=== PATIENT | male | born 1935 | race Caucasian/White ===

== ENCOUNTER 2017-01-02 18:38 | Inpatient (IN) | payer MEDICARE, OTHER ==
[~2017-01-02] VITALS: Ht 172.7 cm; Wt 96.0 kg
[~2017-01-02 18:38] MED LIST: ALLO100T PO; ASPI81TA21 PO; DIPH50TA OR; ERGO5000; FLAG500T PO; LEVA500T PO; LEVE500 PO; LISI-366 PO; NOVO7030P2 SQ; OMEP20TA PO; VITA250L PO
[2017-01-02 18:54] VITALS: BP 185/111; PULSE 89; RESP 17; TEMP 98.2; O2SAT 100
[2017-01-02] MEDS ORDERED: SODIUM CHLOR 0.9% 1000 ML INJ 1,000 ML IV SCH (18:55)
[2017-01-02] MEDS ORDERED: SODIUM CHLORIDE 0.9% FLUSH 10 ML FLUSH IV FLUSH PRN ×2 (19:00→23:00)
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
[2017-01-02 19:13] VITALS: O2SAT 96
--- NOTE | 2017-01-02 19:25 | RADRPT ---
EXAM DATE/TIME: 01/02/2017 18:57 [facility] COMPARISON: No previous studies available for comparison. INDICATIONS : Short of breath. MEDICAL HISTORY : None. SURGICAL HISTORY : None. ENCOUNTER: Initial ACUITY: 1 day PAIN SCORE: Non-responsive. LOCATION: Bilateral chest FINDINGS: A single view of the chest demonstrates the lungs to be symmetrically aerated without evidence of mas s, infiltrate or effusion. The cardiomediastinal contours are unremarkable. Osseous structures are intact. CONCLUSION: No acute disease. Hamzah Dejesus MD on January 02, 2017 at 19:22 Board Certified Radiologist. This report was verified electronically.
[2017-01-02] MEDS ORDERED: metroNIDAZOLE 500 MG INJ 100 ML IV ONE (19:45)
[2017-01-02] MEDS ORDERED: VANCOMYCIN INJ 1,000 MG in SODIUM CHLOR 0.9% 250 ML INJ 250 ML IV ONE (19:45)
[2017-01-02] MEDS ORDERED: PIPERACIL-TAZO 3.375 GM PREMIX 50 ML IV ONE (19:45)
[2017-01-02 19:51] LABS: AUTOMATED NEUTROPHIL # 6.7 TH/MM3 (1.8-7.7); BASOPHIL % 0.5 % (0.0-2.0); EOSINOPHIL # 0.1 TH/MM3 (0-0.4); EOSINOPHIL % 1.2 % (0.0-4.0); HEMATOCRIT 36.9 % (39.0-51.0); HEMO FLAGS DIFF FINAL; LYMPH % 14.4 % (9.0-44.0); LYMPHOCYTE # 1.2 TH/MM3 (1.0-4.8); MEAN CELL VOLUME 83.4 FL (80.0-100.0); MEAN CORPUSCULAR HEMOGLOBIN 28.1 PG (27.0-34.0); MEAN CORPUSCULAR HGB CONC 33.8 % (32.0-36.0); MONO % 5.9 % (0.0-8.0); PLATELET COUNT 232 TH/MM3 (150-450); RED BLOOD COUNT 4.43 MIL/MM3 (4.50-5.90); RED CELL DISTRIBUTION WIDTH 14.7 % (11.6-17.2); WHITE BLOOD COUNT 8.6 TH/MM3 (4.0-11.0)
[2017-01-02 20:00] LABS: ANION GAP 9 MEQ/L (5-15); AST (GOT) 25 U/L (15-37); BICARBONATE 20.3 MEQ/L (21.0-32.0); BLOOD UREA NITROGEN 51 MG/DL (7-18); CHLORIDE 112 MEQ/L (98-107); GLOMERULAR FILTRATION RATE 11 ML/MIN (>89); POTASSIUM 5.4 MEQ/L (3.5-5.1); SODIUM (NA) 141 MEQ/L (136-145)
[2017-01-02 20:01] LABS: ALT (GPT) 15 U/L (12-78)
[2017-01-02 20:03] LABS: ALKALINE PHOSPHATASE 71 U/L (45-117); CREATINE KINASE 447 U/L (39-308); TOTAL BILIRUBIN ADULT 0.8 MG/DL (0.2-1.0)
[2017-01-02 20:05] LABS: BLOOD, URINE MOD (NEG); COMMENT (UR) CULT NOT INDICATED; CULTURE IF INDICATED CULT NOT INDICATED; GLUCOSE,URINE 70 mg/dL (NEG); KETONE, URINE 10 mg/dL (NEG); NITRITE,URINE NEG (NEG); PH, URINE 6.5 (5.0-8.5); URINE COLOR YELLOW (YELLW/STRAW)
[2017-01-02] MEDS ORDERED: SODIUM POLYSTYRENE SULFONATE SUSP 15 GM/60 ML CUP PO ONE (20:15)
[2017-01-02 20:42] VITALS: BP 211/98; PULSE 87; RESP 16; O2SAT 98
--- NOTE | 2017-01-02 21:09 | RADRPT ---
EXAM DATE/TIME: 01/02/2017 20:18 [facility] COMPARISON: No previous studies available for comparison. INDICATIONS : Evaluate for fall. RADIATION DOSE: 56.35c CTDIvol (mGy) MEDICAL HISTORY : Cardiovascular disease. Hypertension. Diabetes mellitus type 2.Renal stones. SURGICAL HISTORY : None. ENCOUNTER: Initial ACUITY: 1 day PAIN SCALE: 2/10 LOCATION: Bilateral cranial TECHNIQUE: Multiple contiguous axial images were obtained of the head. Using automated exposure control and adj ustment of the mA and/or kV according to patient size, radiation dose was kept as low as reasonably a chievable to obtain optimal diagnostic quality images. DICOM format image data is available electro nically for review and comparison. FINDINGS: CEREBRUM: The ventricles and cortical sulci are widened. There is decreased density in cerebral white matter. No evidence of midline shift, mass lesion, hemorrhage or acute infarction. No extra-axial fluid juan david ections are seen. POSTERIOR FOSSA: The cerebellum and brainstem are intact. The 4th ventricle is midline. The cerebellopontine angle i s unremarkable. EXTRACRANIAL: The visualized portion of the orbits is intact. There appears to be soft tissue swelling in the right supraorbital scalp region. SKULL: No fracture is seen. There are several lucent areas seen in the skull likely related to venous lakes. CONCLUSION: 1. No acute abnormality seen. 2. Age-related atrophy and suspected small vessel ischemic change in the white matter. 3. Mild right supraorbital scalp swelling. Hamzah Dejesus MD on January 02, 2017 at 21:00 Board Certified Radiologist. This report was verified electronically.
--- NOTE | 2017-01-02 21:35 | RADRPT ---
EXAM DATE/TIME: 01/02/2017 20:17 [facility] COMPARISON: No previous studies available for comparison. INDICATIONS : Evaluate for neck pain, patient fall today. RADIATION DOSE: 42.58 CTDIvol (mGy) MEDICAL HISTORY : Cardiovascular disease. Hypertension. Diabetes mellitus type 2.Renal stones. SURGICAL HISTORY : None. ENCOUNTER: Initial ACUITY: 1 day PAIN SCALE: 3/10 LOCATION: Bilateral neck region. TECHNIQUE: Volumetric scanning of the cervical spine was performed. Multiplanar reconstructions in the sagittal, coronal and oblique axial planes were performed. Using automated exposure control and adjustment o f the mA and/or kV according to patient size, radiation dose was kept as low as reasonably achievable to obtain optimal diagnostic quality images. DICOM format image data is available electronically f or review and comparison. FINDINGS: An acute fracture is not seen. The cervical vertebral bodies are normal in height. There is mild ante rior subluxation of C5 on C6 likely secondary to degenerative change. There is disc space narrowing, posterior disc bulge and posterior osteophytic ridging at the C3-C4 through C6-C7 levels being most p rominent at the C6-C7 level. There is facet hypertrophy at the C2-C3 through C6-C7 levels. There is u ncovertebral hypertrophy at the C3-C4 through C6-C7 levels. There is some hypertrophic change posteri or to the T1 spinous process. This is chronic. There is a lucent area seen at the base of the spinous process at C3. This is nonspecific. CONCLUSION: Degenerative change. An acute bony abnormality is not seen. Hamzah Dejesus MD on January 02, 2017 at 21:29 Board Certified Radiologist. This report was verified electronically.
--- NOTE | 2017-01-02 21:39 | RADRPT ---
EXAM DATE/TIME: 01/02/2017 20:23 [facility] COMPARISON: No previous studies available for comparison. INDICATIONS : Evaluate for diffuse lower abdomen pain. ORAL CONTRAST: No oral contrast ingested. RADIATION DOSE: 10.57 CTDIvol (mGy) ; Combined studies MEDICAL HISTORY : Cardiovascular disease. Hypertension. Renal calculi.Diabetes. SURGICAL HISTORY : None. ENCOUNTER: Initial ACUITY: 1 day PAIN SCALE: 7/10 LOCATION: Bilateral lower quadrant TECHNIQUE: Volumetric scanning of the abdomen and pelvis was performed. Using automated exposure control and ad justment of the mA and/or kV according to patient size, radiation dose was kept as low as reasonably achievable to obtain optimal diagnostic quality images. DICOM format image data is available electro nically for review and comparison. FINDINGS: LOWER LUNGS: The visualized lower lungs are clear. LIVER: Homogeneous density without lesion. There is no dilation of the biliary tree. Clips are seen in the right upper quadrant from prior cholecystectomy. SPLEEN: Normal size without lesion. PANCREAS: Within normal limits. KIDNEYS: Normal in size and shape. There is no mass, stone, or hydronephrosis. ADRENAL GLANDS: Within normal limits. VASCULAR: There is no aortic aneurysm. Arterial calcifications are seen throughout. BOWEL/MESENTERY: The stomach, small bowel, and colon demonstrate no acute abnormality. There is no free intraperitone al air or fluid. There are scattered colonic diverticula without inflammatory change. ABDOMINAL WALL: Within normal limits. There is subcutaneous superficial edema seen throughout the abdomen and pelvis. RETROPERITONEUM: There is no lymphadenopathy. BLADDER: No wall thickening or mass. REPRODUCTIVE: Within normal limits. INGUINAL: There is no lymphadenopathy or hernia. MUSCULOSKELETAL: There is degenerative change in the lumbar spine and hips. CONCLUSION: 1. No acute abnormality seen. 2. Colonic diverticula without inflammatory change. 3. Degenerative change the lumbar spine and hips. Hamzah Dejesus MD on January 02, 2017 at 21:33 Board Certified Radiologist. This report was verified electronically.
--- NOTE | 2017-01-02 21:52 | RADRPT ---
EXAM DATE/TIME: 01/02/2017 20:28 [facility] COMPARISON: No previous studies available for comparison. INDICATIONS : Mid back pain due to fall. RADIATION DOSE: CTDIvol (mGy) ; Reconstructed from previous dataset MEDICAL HISTORY : Cardiovascular disease. Renal calculi. Diabetes mellitus type 2.High blood pressure. SURGICAL HISTORY : None. ENCOUNTER: Initial ACUITY: 1 day PAIN SCALE: 6/10 LOCATION: Bilateral mid back TECHNIQUE: Volumetric scanning of the thoracic spine was performed. Multiplanar reconstructions in the sagittal , coronal and oblique axial planes were performed. Using automated exposure control and adjustment o f the mA and/or kV according to patient size, radiation dose was kept as low as reasonably achievable to obtain optimal diagnostic quality images. DICOM format image data is available electronically f or review and comparison. FINDINGS: The vertebral bodies of the thoracic spine are in normal alignment without evidence of subluxation. T he vertebral bodies are normal in height. There are anterior spurs throughout the thoracic spine. An area of significant stenosis of the thecal sac is not seen. There is a 0.7 cm focal area sclerosis at the right lamina at T11. CONCLUSION: 1. No acute abnormality is seen. 2. Degenerative change throughout the thoracic spine mainly seen is anterior spurring. 3. Nonspecific solitary of sclerosis at the right T11 lamina. This could represent a bone island or s tress reaction. Other causes for focal sclerosis cannot be excluded. Hamzah Dejesus MD on January 02, 2017 at 21:44 Board Certified Radiologist. This report was verified electronically.
[2017-01-02] MEDS ORDERED: LABETALOL HCL 100 MG/20 ML VIAL IV PUSH ONE (22:00)
--- NOTE | 2017-01-02 22:41 | RADRPT ---
EXAM DATE/TIME: 01/02/2017 22:08 [facility] COMPARISON: No previous studies available for comparison. INDICATIONS : Enlarged testicles. Possible hydroceles ORAL CONTRAST: No oral contrast ingested. RADIATION DOSE: 13.53 CTDIvol (mGy) MEDICAL HISTORY : Cardiovascular disease. Hypertension. Diabetes mellitus type 2. SURGICAL HISTORY : None. ENCOUNTER: Initial ACUITY: 1 day PAIN SCALE: 5/10 LOCATION: pelvis TECHNIQUE: Volumetric scanning of the pelvis was performed. Using automated exposure control and adjustment of the mA and/or kV according to patient size, radiation dose was kept as low as reasonably achievable t o obtain optimal diagnostic quality images. DICOM format image data is available electronically for review and comparison. FINDINGS: BOWEL/MESENTERY: The visualized small and large bowel demonstrate no acute abnormality. There is no free fluid. BLADDER: There is no wall thickening or mass. RETROPERITONEUM: There is no aneurysm or lymphadenopathy. REPRODUCTIVE: There is scrotal swelling and suspected bilateral hydroceles. The testicles appear normal in size. INGUINAL: There is no lymphadenopathy or hernia. MUSCULOSKELETAL: There is superficial edema at the pelvis and upper thighs. CONCLUSION: 1. Scrotal swelling and suspected hydroceles. 2. Diffuse superficial edema likely from anasarca. Hamzah Dejesus MD on January 02, 2017 at 22:36 Board Certified Radiologist. This report was verified electronically.
[2017-01-02] MEDS ORDERED: NALOXONE HCL 0.4 MG/ML AMP IV PRN (23:00)
[2017-01-02 23:41] VITALS: BP 182/98
[2017-01-03] VITALS (11 sets, daily range): BP systolic 135–193; BP diastolic 68–90; PULSE 61–88; RESP 16–20; TEMP 96.7–98.7; O2SAT 97–99
--- NOTE | 2017-01-03 02:20 | HHI.HP ---
[facility] Service [facility] Primary Care Physician Robyn Wu MD Admission Diagnosis acute renal failure, hyperkalemia, cellulitis of the scrotum/legs Diagnoses: Chief Complaint: Fall out of bed Travel History International Travel<30 Days: No Contact w/Intl Traveler <30 Da: No Traveled to Known Affected Are: No History of Present Illness Written by [place], acting as scribe for Dr. Rangel on 01/03/17 at 02:45. A week or so, the patient has been experiencing chills. The patient reports that his bed collapsed. The patient states he was in pain and could not get up off of the ground. This occurred around noon. He states that his son found him. He is not sure how long he was on the ground. He denies hitting his head or experiencing syncope. He reports back pain. Denies fevers, cough, n/v/d, dysuria, hematuria, chest pain, chest tightness, shortness of breath, dizziness, or unilateral weakness. Review of Systems Except as stated in HPI: all other systems reviewed are Neg Past Family Social History Past Medical History History of hypertension - doctor discontinued bp meds per patient Diabetes Mellitus - doctor discontinued his antidiabetic medications CKD Denies CAD, CHF, atrial fibrillation, COPD, asthma, liver problems, DVT, PE, CVA , Seizures, thyroid problems, cancer, or prostate issues . Past Surgical History hernia repair . Reported Medications Reported Meds & Active Scripts Active No Active Prescriptions or Reported Medications . Allergies: Coded Allergies: Codeine (Verified Allergy, Severe, Hives, 01/02/17) Latex (Verified Allergy, Severe, Hives NEOPRENE LATEX, 01/02/17) PT STATES HE IS NOT ALLERGIC TO LATEX ONLY NEOPRENE. 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 Uncoded Allergies: NEOPRENE (Allergy, Intermediate, Hives, 12/14/04) Active Ordered Medications Current Medications Sodium Chloride 2 ml 2 ml UNSCH PRN IV FLUSH FLUSH AFTER USING IV ACCESS Last administered on 01/02/17 20:18; Start 01/02/17 at 19:00; Stop 01/02/17 at 22:57; Status DC Sodium Chloride 1,000 ml @ 1,000 mls/hr Q1H IV Last administered on 01/02/17 20:17; Start 01/02/17 at 18:55; Stop 01/02/17 at 19:54; Status DC Vancomycin HCl 1000 mg/Sodium Chloride 250 ml @ 250 mls/hr ONCE ONCE IV Last administered on 01/02/17 21:10; Start 01/02/17 at 19:45; Stop 01/02/17 at 20:44; Status DC Piperacillin Sod/ Tazobactam Sod 50 ml @ 100 mls/hr ONCE ONCE IV Last administered on 01/02/17 20:59; Start 01/02/17 at 19:45; Stop 01/02/17 at 20:14; Status DC Metronidazole (Flagyl 500 Mg Inj) 100 ml @ 100 mls/hr ONCE ONCE IV Last administered on 01/02/17 20:18; Start 01/02/17 at 19:45; Stop 01/02/17 at 20:44; Status DC Sodium Polystyrene Sulfonate (Kayexalate Liq) 15 gm ONCE ONCE PO Last administered on 01/02/17 21:10; Start 01/02/17 at 20:15; Stop 01/02/17 at 20:16; Status DC Labetalol HCl (Trandate Inj) 10 mg ONCE ONCE IV PUSH Last administered on 00:01; Start 01/02/17 at 22:00; Stop 01/02/17 at 22:01; Status DC Sodium Chloride (NS Flush) 2 ml UNSCH PRN IV FLUSH FLUSH AFTER USING IV ACCESS ; Start 01/02/17 at 23:00 Sodium Chloride (NS Flush) 2 ml BID IV FLUSH ; Start 01/03/17 at 09:00 Naloxone HCl (Narcan Inj) 0.4 mg UNSCH PRN IV SEE LABEL COMMENTS; Start at 23:00 . Family History Sister - from complications related to asthma . Social History Tobacco: quit smoking in 1982 - smoked 4 ppd Alcohol: drinks once a month . Physical Exam Vital Signs Vital Signs Date Time Temp Pulse Resp B/P Pulse Ox O2 Delivery O2 Flow Rate FiO2 01/03/17 01:15 96.7 84 18 98 01/03/17 00:02 75 16 187/77 98 Room Air 01/02/17 23:41 182/98 01/02/17 20:42 87 16 211/98 98 01/02/17 19:13 96 Room Air 01/02/17 18:54 98.2 89 17 185/111 100 Room Air Physical Exam GENERAL: This is an obese elderly male patient, in no apparent distress. INTEGUMENTARY: No rashes. Cool and dry. Bilateral lower extremities with edema and erythema. HEAD: Atraumatic. Normocephalic. EYES: No scleral icterus. No injection or drainage. ENT: Nose without bleeding, purulent drainage. NECK: Trachea midline. No JVD or lymphadenopathy. CARDIOVASCULAR: Regular rate and rhythm without murmurs, gallops, or rubs. RESPIRATORY: Clear to auscultation. Breath sounds equal bilaterally. No wheezes , rales, or rhonchi. GASTROINTESTINAL: Abdomen soft, non-tender, nondistended. No guarding. MUSCULOSKELETAL: Extremities without clubbing, cyanosis. No calf tenderness. NEUROLOGICAL: Awake and alert. Motor and sensory grossly within normal limits. Normal speech. . Laboratory Laboratory Tests Test 01/02/17 01/02/17 19:30 20:00 White Blood Count 8.6 Red Blood Count 4.43 Hemoglobin 12.5 Hematocrit 36.9 Mean Corpuscular Volume 83.4 Mean Corpuscular Hemoglobin 28.1 Mean Corpuscular Hemoglobin 33.8 Concent Red Cell Distribution Width 14.7 Platelet Count 232 Mean Platelet Volume 8.7 Neutrophils (%) (Auto) 78.0 Lymphocytes (%) (Auto) 14.4 Monocytes (%) (Auto) 5.9 Eosinophils (%) (Auto) 1.2 Basophils (%) (Auto) 0.5 Neutrophils # (Auto) 6.7 Lymphocytes # (Auto) 1.2 Monocytes # (Auto) 0.5 Eosinophils # (Auto) 0.1 Basophils # (Auto) 0.0 CBC Comment DIFF FINAL Differential Comment Sodium Level 141 Potassium Level 5.4 Chloride Level 112 Carbon Dioxide Level 20.3 Anion Gap 9 Blood Urea Nitrogen 51 Creatinine 5.16 Estimat Glomerular Filtration 11 Rate Random Glucose 76 Lactic Acid Level 0.9 Calcium Level 8.3 Total Bilirubin 0.8 Aspartate Amino Transf 25 (AST/SGOT) Alanine Aminotransferase 15 (ALT/SGPT) Alkaline Phosphatase 71 Total Creatine Kinase 447 Creatine Kinase MB 4.0 Creatine Kinase MB % 0.9 Total Protein 6.2 Albumin 3.1 Lipase 106 Urine Color YELLOW Urine Turbidity CLEAR Urine pH 6.5 Urine Specific [place] 1.010 Urine Protein 300 Urine Glucose (UA) 70 Urine Ketones 10 Urine Occult Blood MOD Urine Nitrite NEG Urine Bilirubin NEG Urine Urobilinogen LESS THAN 2.0 Urine Leukocyte Esterase NEG Urine RBC 1 Urine WBC LESS THAN 1 Microscopic Urinalysis Comment CULT NOT INDICATED Date/Time Procedure Status Source Growth 01/02/17 19:30 Aerobic Blood Culture Received Blood Peripheral Pending 01/02/17 19:30 Anaerobic Blood Culture Received Blood Peripheral Pending Result Diagram: 01/02/17192901/02/171929 Imaging Last Impressions Chest X-Ray 01/02/171854 Signed Impressions: Service Date/Time: Monday, January 02, 2017 18:57 - CONCLUSION: No acute disease. Hamzah Dejesus MD Abdomen/Pelvis CT 01/02/171854 Signed Impressions: Service Date/Time: Monday, January 02, 2017 20:23 - CONCLUSION: 1. No acute abnormality seen. 2. Colonic diverticula without inflammatory change. 3. Degenerative change the lumbar spine and hips. Hamzah Dejesus MD Thoracic Spine CT 01/02/17 0000 Signed Impressions: Service Date/Time: Monday, January 02, 2017 20:28 - CONCLUSION: 1. No acute abnormality is seen. 2. Degenerative change throughout the thoracic spine mainly seen is anterior spurring. 3. Nonspecific solitary of sclerosis at the right T11 lamina. This could represent a bone island or stress reaction. Other causes for focal sclerosis cannot be excluded. Hamzah Dejesus MD Pelvis CT 01/02/17 0000 Signed Impressions: Service Date/Time: Monday, January 02, 2017 22:08 - CONCLUSION: 1. Scrotal swelling and suspected hydroceles. 2. Diffuse superficial edema likely from anasarca. Hamzah Dejesus MD Head CT 01/02/17 0000 Signed Impressions: Service Date/Time: Monday, January 02, 2017 20:18 - CONCLUSION: 1. No acute abnormality seen. 2. Age-related atrophy and suspected small vessel ischemic change in the white matter. 3. Mild right supraorbital scalp swelling. Hamzah Dejesus MD Cervical Spine CT 01/02/17 0000 Signed Impressions: Service Date/Time: Monday, January 02, 2017 20:17 - CONCLUSION: Degenerative change. An acute bony abnormality is not seen. Hamzah Dejesus MD . Assessment and Plan Assessment and Plan Acute Renal Failure with severe dehydration - BUN - 51, Creatinine - 5.16 eGFR - 11 - IVF hydration with NS at 100 cc/hr - recheck bmp in a.m. and follow results - continuous cardiac telemetry to monitor for arrhythmias - closely monitor I and Os - avoid nephrotoxins Rhabdomyolysis - likely secondary to severe dehydration - CK 447 - IVF hydration with NS at 100 cc/hr - recheck CK in a.m. and follow results Cellulitis - Renally adjusted IV Cefepime Hyperkalemia secondary to acute renal failure - Kayexalate given - recheck labs in a.m. and follow potassium results Hypertensive urgency - Clonidine 0.1 mg p.o. PRN sbp > 160 and/or dbp > 95 - monitor trends in blood pressure and adjust treatment as indicated Case management consultation for discharge planning DVT prophylaxis - Heparin 5000 units subq q8h . This note was transcribed by kelly [La Casillas]. I, Dr. Levi Rangel personally performed the history, physical exam, and medical decision making; and confirmed the accuracy of the information in the transcribed note. Authenticated by Dr. Levi Rangel on 01/03/17 at 02:45. Discussed Condition With ER physician, RN, and patient . Physician Certification 2 Midnight Certification Type: Admission for Inpatient Services Order for Inpatient Services The services are ordered in accordance with Medicare regulations or non- Medicare payer requirements, as applicable. In the case of services not specified as inpatient-only, they are appropriately provided as inpatient services in accordance with the 2-midnight benchmark. Estimated LOS (days): 3 days is the estimated time the patient will need to remain in the hospital, assuming treatment plan goals are met and no additional complications. Post-Hospital Plan: Home [place] Jan 03, 2017 02:20 Levi Rangel MD Jan 03, 2017 06:56
[2017-01-03] MEDS ORDERED: SODIUM CHLOR 0.9% 1000 ML INJ 1,000 ML IV SCH (03:15)
[2017-01-03] MEDS: HEPARIN SODIUM - SQ 10,000 UNITS/ML VIAL SQ SCH ×3 (05:47→22:45)
[2017-01-03] MEDS: cloNIDine HCL 0.1 MG TAB PO PRN ×2 (06:26→12:53)
[2017-01-03 07:18] LABS: AUTOMATED NEUTROPHIL # 6.7 TH/MM3 (1.8-7.7); BASOPHIL % 0.5 % (0.0-2.0); EOSINOPHIL # 0.1 TH/MM3 (0-0.4); EOSINOPHIL % 1.9 % (0.0-4.0); HEMATOCRIT 33.6 % (39.0-51.0); HEMO FLAGS DIFF FINAL; LYMPH % 8.2 % (9.0-44.0); LYMPHOCYTE # 0.6 TH/MM3 (1.0-4.8); MEAN CELL VOLUME 83.5 FL (80.0-100.0); MEAN CORPUSCULAR HEMOGLOBIN 27.6 PG (27.0-34.0); MEAN CORPUSCULAR HGB CONC 33.1 % (32.0-36.0); MONO % 5.4 % (0.0-8.0); PLATELET COUNT 215 TH/MM3 (150-450); RED BLOOD COUNT 4.03 MIL/MM3 (4.50-5.90); RED CELL DISTRIBUTION WIDTH 14.4 % (11.6-17.2); WHITE BLOOD COUNT 7.9 TH/MM3 (4.0-11.0)
[2017-01-03 07:28] LABS: BICARBONATE 20.8 MEQ/L (21.0-32.0); POTASSIUM 5.4 MEQ/L (3.5-5.1)
[2017-01-03] MEDS: SODIUM CHLORIDE 0.9% FLUSH 10 ML FLUSH IV FLUSH SCH ×2 (08:49→21:00)
[2017-01-03] MEDS ORDERED: CEFEPIME INJ 2,000 MG in SODIUM CHLORIDE 0.9% INJ 100 ML IV SCH (09:00)
--- NOTE | 2017-01-03 09:28 | EKG ---
Date Performed: 01/02/2017 Time Performed: 19:35:19 PTAGE: 81 years EKG: Sinus rhythm WITH FIRST DEGREE AV BLOCK RIGHT BUNDLE BRANCH BLOCK LEFT ANTERIOR FASCICULAR BLOCK ABNORMAL ECG PREVIOUS TRACING : 09/05/2013 10.51 DOCTOR: Seth Lyons Interpretating Date/Time 01/03/2017 09:27:51
--- NOTE | 2017-01-03 10:40 | HHI.PR ---
Subjective Remarks Patient was admitted on 01/03/2017 due to fall and unable to get up from the floor , possibly near syncope. At the time of this interview, patient is doing well, resting in bed well. No chest pain, shortness of breath, fever or chills. Objective Vitals Vital Signs Date Time Temp Pulse Resp B/P Pulse Ox O2 Delivery O2 Flow Rate FiO2 01/03/17 07:50 63 01/03/17 07:50 96.9 61 20 153/69 99 Automatic Cuff 01/03/17 05:30 97.3 64 18 187/83 99 01/03/17 01:30 140/90 01/03/17 01:15 96.7 84 18 98 01/03/17 00:02 75 16 187/77 98 Room Air 01/02/17 23:41 182/98 01/02/17 20:42 87 16 211/98 98 01/02/17 19:13 96 Room Air 01/02/17 18:54 98.2 89 17 185/111 100 Room Air Result Diagram: 01/03/17 0550 01/03/17 0550 Imaging Last Impressions Chest X-Ray 01/02/171854 Signed Impressions: Service Date/Time: Monday, January 02, 2017 18:57 - CONCLUSION: No acute disease. Hamzah Dejesus MD Abdomen/Pelvis CT 01/02/171854 Signed Impressions: Service Date/Time: Monday, January 02, 2017 20:23 - CONCLUSION: 1. No acute abnormality seen. 2. Colonic diverticula without inflammatory change. 3. Degenerative change the lumbar spine and hips. Hamzah Dejesus MD Thoracic Spine CT 01/02/17 0000 Signed Impressions: Service Date/Time: Monday, January 02, 2017 20:28 - CONCLUSION: 1. No acute abnormality is seen. 2. Degenerative change throughout the thoracic spine mainly seen is anterior spurring. 3. Nonspecific solitary of sclerosis at the right T11 lamina. This could represent a bone island or stress reaction. Other causes for focal sclerosis cannot be excluded. Hamzah Dejesus MD Pelvis CT 01/02/17 0000 Signed Impressions: Service Date/Time: Monday, January 02, 2017 22:08 - CONCLUSION: 1. Scrotal swelling and suspected hydroceles. 2. Diffuse superficial edema likely from anasarca. Hamzah Dejesus MD Head CT 01/02/17 0000 Signed Impressions: Service Date/Time: Monday, January 02, 2017 20:18 - CONCLUSION: 1. No acute abnormality seen. 2. Age-related atrophy and suspected small vessel ischemic change in the white matter. 3. Mild right supraorbital scalp swelling. Hamzah Dejesus MD Cervical Spine CT 01/02/17 0000 Signed Impressions: Service Date/Time: Monday, January 02, 2017 20:17 - CONCLUSION: Degenerative change. An acute bony abnormality is not seen. Hamzah Dejesus MD Objective Remarks GENERAL: Alert, NAD. SKIN: Warm and dry. HEAD: Normocephalic. EYES: No scleral icterus. No injection or drainage. NECK: Supple, trachea midline. No JVD or lymphadenopathy. CARDIOVASCULAR: Regular rate and rhythm without murmurs, gallops, or rubs. RESPIRATORY: Breath sounds equal bilaterally. No accessory muscle use. GASTROINTESTINAL: Abdomen soft, non-tender, nondistended. MUSCULOSKELETAL: No cyanosis. 2+ edema in the lower ext bilaterally. Erythema present without any drainage. BACK: Nontender without obvious deformity. No CVA tenderness. Procedures None. A/P Assessment and Plan Mr. Lala is an 81 year old male who was brought to the ED after he fell and could not get up. Son found him after unknown period of time. Per EMS, patient' s living condition is extremely disheveled and unkept. Inside temp was around 90 degrees and patient was lying down on the floor. Patient apparently stopped taking all his medications three months ago on his own. - Acute kidney injury - Probably due to volume depletion due to hot weather, lack of proper oral fluid intake. - Creatinine above 5 with hyperkalemia - Nephrology consulted - switched IV fluid from NS to D5 with Bicarb @ 75cc/ hour. - Renal panel in the AM. - Bilateral lower extremity stasis dermatitis - Redness on both legs - less likely due to infectious etiology. - Will discontinue Cefepime. - Elevate legs and Apply Patrick hose. - May need diuresis - but at this point, diuresis may further contract volume. - Hypertension - Will start CCB Nifedipine 60mg Qday. - Clonidine PRN Full code. Heparin SQ. Jayson Casper DO Jan 03, 2017 10:40
--- NOTE | 2017-01-03 12:09 | PD.CONS ---
[facility] Service Nephrology Consult Requested By Reason for Consult Acute Renal Failure Primary Care Physician Robyn Wu MD History of Present Illness This is an 81 y/o male patient admitted yesterday after he rolled out of bed and was unable to get up on his own. Apparently his home is very disheveled. He was in renal failure on arrival, creatinine 5.16, K 5.4, C02 20.8. CPK was 447, UA had 300 proteinuria with ketones and glucose. We were consulted for management. PMH of HTN and DM, he took himself off medications years ago for unknown reasons. His BP was in 200s systolic in the ER. He is awake today, has no complaints. Has pedal edema and erythema of lower legs, was given antibiotics for suspected cellulitis. He is a full code. (Mikki Arroyo) Review of Systems Constitutional: COMPLAINS OF: Fatigue, DENIES: Weight gain Cardiovascular: COMPLAINS OF: Lower Extremity Edema, DENIES: Chest pain, Dyspnea on Exertion Gastrointestinal: DENIES: Abdominal pain, Nausea Musculoskeletal: DENIES: Joint pain, Muscle aches Integumentary: COMPLAINS OF: Rash (Mikki Arroyo) Past Family Social History Allergies: Coded Allergies: Codeine (Verified Allergy, Severe, Hives, 01/02/17) Latex (Verified Allergy, Severe, Hives NEOPRENE LATEX, 01/02/17) PT STATES HE IS NOT ALLERGIC TO LATEX ONLY NEOPRENE. 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 Face wound 2008 Uncoded Allergies: NEOPRENE (Allergy, Intermediate, Hives, 12/14/04) Past Medical History HTN, off medications for years DM II, off medications for years Hx hyperlipidemia probable CKD Hx seizures GERD Hx pancreatitis Past Surgical History Hernia repair Reported Medications No home medications Active Ordered Medications Current Medications Medications (Trade) Dose Ordered Sig/Maxi Route Start Time Stop Time Status Last Admin (NS Flush) 2 ml UNSCH PRN IV FLUSH 01/02/17 23:00 (NS Flush) 2 ml BID IV FLUSH 01/03/17 09:00 Naloxone HCl 0.4 mg 0.4 mg UNSCH PRN IV 01/02/17 23:00 (NS 1000 ml Inj) 1,000 ml @ 100 mls/hr Q10H IV 01/03/17 03:15 01/03/17 04:19 (Heparin Inj) 5,000 units Q8HR SQ 01/03/17 06:00 01/03/17 05:47 (Catapres) 0.1 mg Q6H PRN PO 01/03/17 03:30 01/03/17 06:26 Family History No hx of renal disorders Social History former heavy smoker occasional ETOH he is , lives locally with 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 noncompliance with medical care in the past full code (Mikki Arroyo) Physical Exam Vital Signs Vital Signs Date Time Temp Pulse Resp B/P Pulse Ox O2 Delivery O2 Flow Rate FiO2 01/03/17 07:50 63 01/03/17 07:50 96.9 61 20 153/69 99 Automatic Cuff 01/03/17 05:30 97.3 64 18 187/83 99 01/03/17 01:30 140/90 01/03/17 01:15 96.7 84 18 98 01/03/17 00:02 75 16 187/77 98 Room Air 01/02/17 23:41 182/98 01/02/17 20:42 87 16 211/98 98 01/02/17 19:13 96 Room Air 01/02/17 18:54 98.2 89 17 185/111 100 Room Air Physical Exam Elderly disheveled male, sleeping but awakens to voice alert/oriented x 3 S1/S2, regular rate, no murmurs lungs clear abdomen obese, soft, non tender extremities: erythema with papular lesions lower extremities, no open areas pedal edema, 2+ Laboratory Laboratory Tests Test 01/02/17 01/02/17 01/03/17 19:30 20:00 05:50 White Blood Count 8.6 7.9 Red Blood Count 4.43 4.03 Hemoglobin 12.5 11.1 Hematocrit 36.9 33.6 Mean Corpuscular Volume 83.4 83.5 Mean Corpuscular Hemoglobin 28.1 27.6 Mean Corpuscular Hemoglobin 33.8 33.1 Concent Red Cell Distribution Width 14.7 14.4 Platelet Count 232 215 Mean Platelet Volume 8.7 8.5 Neutrophils (%) (Auto) 78.0 84.0 Lymphocytes (%) (Auto) 14.4 8.2 Monocytes (%) (Auto) 5.9 5.4 Eosinophils (%) (Auto) 1.2 1.9 Basophils (%) (Auto) 0.5 0.5 Neutrophils # (Auto) 6.7 6.7 Lymphocytes # (Auto) 1.2 0.6 Monocytes # (Auto) 0.5 0.4 Eosinophils # (Auto) 0.1 0.1 Basophils # (Auto) 0.0 0.0 CBC Comment DIFF FINAL DIFF FINAL Differential Comment Sodium Level 141 144 Potassium Level 5.4 5.4 Chloride Level 112 114 Carbon Dioxide Level 20.3 20.8 Anion Gap 9 9 Blood Urea Nitrogen 51 47 Creatinine 5.16 5.09 Estimat Glomerular Filtration 11 11 Rate Random Glucose 76 68 Lactic Acid Level 0.9 Calcium Level 8.3 7.9 Total Bilirubin 0.8 Aspartate Amino Transf 25 (AST/SGOT) Alanine Aminotransferase 15 (ALT/SGPT) Alkaline Phosphatase 71 Total Creatine Kinase 447 297 Creatine Kinase MB 4.0 Creatine Kinase MB % 0.9 Total Protein 6.2 Albumin 3.1 Lipase 106 Urine Color YELLOW Urine Turbidity CLEAR Urine pH 6.5 Urine Specific [place] 1.010 Urine Protein 300 Urine Glucose (UA) 70 Urine Ketones 10 Urine Occult Blood MOD Urine Nitrite NEG Urine Bilirubin NEG Urine Urobilinogen LESS THAN 2.0 Urine Leukocyte Esterase NEG Urine RBC 1 Urine WBC LESS THAN 1 Microscopic Urinalysis Comment CULT NOT INDICATED Date/Time Procedure Status Source Growth 01/02/17 19:30 Aerobic Blood Culture - Preliminary Resulted Blood Peripheral NO GROWTH IN 1 DAY 01/02/17 19:30 Anaerobic Blood Culture - Preliminary Resulted Blood Peripheral NO GROWTH IN 1 DAY (Mikki Arroyo) Result Diagram: 01/03/17 0550 01/03/17 0550 Imaging Last Impressions Chest X-Ray 01/02/171854 Signed Impressions: Service Date/Time: Monday, January 02, 2017 18:57 - CONCLUSION: No acute disease. Hamzah Dejesus MD Abdomen/Pelvis CT 01/02/171854 Signed Impressions: Service Date/Time: Monday, January 02, 2017 20:23 - CONCLUSION: 1. No acute abnormality seen. 2. Colonic diverticula without inflammatory change. 3. Degenerative change the lumbar spine and hips. Hamzah Dejesus MD Thoracic Spine CT 01/02/17 Signed Impressions: Service Date/Time: Monday, January 02, 2017 20:28 - CONCLUSION: 1. No acute abnormality is seen. 2. Degenerative change throughout the thoracic spine mainly seen is anterior spurring. 3. Nonspecific solitary of sclerosis at the right T11 lamina. This could represent a bone island or stress reaction. Other causes for focal sclerosis cannot be excluded. Hamzah Dejesus MD Pelvis CT 01/02/17 Signed Impressions: Service Date/Time: Monday, January 02, 2017 22:08 - CONCLUSION: 1. Scrotal swelling and suspected hydroceles. 2. Diffuse superficial edema likely from anasarca. Hamzah Dejesus MD Head CT 01/02/17 Signed Impressions: Service Date/Time: Monday, January 02, 2017 20:18 - CONCLUSION: 1. No acute abnormality seen. 2. Age-related atrophy and suspected small vessel ischemic change in the white matter. 3. Mild right supraorbital scalp swelling. Hamzah Dejesus MD Cervical Spine CT 01/02/17 Signed Impressions: Service Date/Time: Monday, January 02, 2017 20:17 - CONCLUSION: Degenerative change. An acute bony abnormality is not seen. Hamzah Dejesus MD (Mikki ArroyoP) Assessment and Plan Problem List: (1) Acute renal failure Plan: In 2013 his creatinine was 0.98, GFR 74, consistent with CKD II he has proteinuria may have underlying diabetic nephropathy MAAME may be due to intravascular volume depletion from dehydration, CPK not that high so rhabdomyolysis is less likely CT negative for obstruction change IVF to D5 with bicarbonate at 75 cc/hr oral intake encouraged repeat renal panel in am quantify proteinuria I have asked the nurse to document urine output he may need diuresis in upcoming days he does not require dialysis at this time (2) Hyperkalemia Plan: begin bicarb drip repeat renal panel in am (3) Hypertension Plan: avoid SALO given hyperkalemia and MAAME bradycardic today avoid beta blockers start amlodipine prn clonidine ordered (4) Metabolic acidosis Plan: change IVF, monitor (5) Poorly controlled diabetes mellitus Plan: monitor glucose resume insulin when appropriate (6) Bilateral lower leg cellulitis Plan: given flagyl, zosyn, vancomycin, and cefepime defer treatment to medical team (Mikki Arroyo) Assessment and Plan patient was seen and examined. Renal function near normal in 2013. MAAME could have due to pre-renal azotemia, vs ATN. UA did reveal moderate blood but only few RBCs, however CPK is not very high. Monitor, continue IVF. no immediate need for dialysis. Agree with above assessment and plan. (Juan Antonio Poon MD) Problem Qualifiers (1) Acute renal failure: Qualified Code: N17.9 - Acute renal failure, unspecified acute renal failure type Mikki Arroyo Jan 03, 2017 12:09 Juan Antonio Poon MD Jan 03, 2017 17:42
[2017-01-03] MEDS: SODIUM BICARBONATE 8.4% INJ 75 MEQ in DEXTROSE 5% IN WATE 1000ML INJ 1,000 ML IV SCH ×2 (14:41)
[2017-01-04] VITALS: BP 136/70; PULSE 67; RESP 18; TEMP 98.7; O2SAT 98
[2017-01-04 04:00] VITALS: BP 173/79; PULSE 58; RESP 18; TEMP 96.9; O2SAT 99
[2017-01-04] MEDS: SODIUM BICARBONATE 8.4% INJ 75 MEQ in DEXTROSE 5% IN WATE 1000ML INJ 1,000 ML IV SCH ×4 (04:12→05:39)
[2017-01-04] MEDS: cloNIDine HCL 0.1 MG TAB PO PRN (04:13)
[2017-01-04] MEDS: HEPARIN SODIUM - SQ 10,000 UNITS/ML VIAL SQ SCH ×3 (06:37→22:36)
[2017-01-04 06:54] LABS: BICARBONATE 21.1 MEQ/L (21.0-32.0); POTASSIUM 4.5 MEQ/L (3.5-5.1)
[2017-01-04 08:00] VITALS: BP 178/81; PULSE 56; RESP 18; TEMP 98
[2017-01-04] MEDS: NIFEdipine 60 MG SUSTAINED RELEASE TAB PO SCH (10:16)
[2017-01-04] MEDS: SODIUM CHLORIDE 0.9% FLUSH 10 ML FLUSH IV FLUSH SCH ×2 (10:16→21:00)
[2017-01-04] MEDS ORDERED: DEXTROSE 50% IN WATER 50 ML VIAL(D50) IV PRN (10:45)
[2017-01-04] MEDS ORDERED: GLUCAGON 1 MG/ML VIAL OTHER PRN (10:45)
--- NOTE | 2017-01-04 10:46 | HHI.PR ---
Subjective Remarks Follow up for acute kidney injury, diabetes. Patient is doing well. Denies any chest pain, shortness of breath, fever, chills. Objective Vitals Vital Signs Date Time Temp Pulse Resp B/P Pulse Ox O2 Delivery O2 Flow Rate FiO2 01/04/17 04:00 96.9 58 18 173/79 99 01/04/17 00:00 98.7 67 18 136/70 98 01/03/17 23:52 68 01/03/17 20:30 98.7 64 18 177/81 97 01/03/17 15:50 97.4 70 20 151/68 98 01/03/17 13:27 88 135/73 01/03/17 12:00 65 01/03/17 11:50 97.2 76 20 193/81 99 I/O 01/03/17 01/03/17 01/03/17 01/04/17 01/04/17 01/04/17 07:00 15:00 23:00 07:00 15:00 23:00 Intake Total 1338 ml 480 ml Balance 1338 ml 480 ml Intake Oral 341 ml 480 ml IV Total 997 ml Bladder Scan Volume Amount 82 ml # Voids 1 3 2 # Bowel Movements 1 2 Result Diagram: 01/03/17 0550 01/04/17 0546 Imaging Last Impressions Chest X-Ray 01/02/171854 Signed Impressions: Service Date/Time: Monday, January 02, 2017 18:57 - CONCLUSION: No acute disease. Hamzah Dejesus MD Abdomen/Pelvis CT 01/02/171854 Signed Impressions: Service Date/Time: Monday, January 02, 2017 20:23 - CONCLUSION: 1. No acute abnormality seen. 2. Colonic diverticula without inflammatory change. 3. Degenerative change the lumbar spine and hips. Hamzah Dejesus MD Thoracic Spine CT 01/02/17 0000 Signed Impressions: Service Date/Time: Monday, January 02, 2017 20:28 - CONCLUSION: 1. No acute abnormality is seen. 2. Degenerative change throughout the thoracic spine mainly seen is anterior spurring. 3. Nonspecific solitary of sclerosis at the right T11 lamina. This could represent a bone island or stress reaction. Other causes for focal sclerosis cannot be excluded. Hamzah Dejesus MD Pelvis CT 01/02/17 0000 Signed Impressions: Service Date/Time: Monday, January 02, 2017 22:08 - CONCLUSION: 1. Scrotal swelling and suspected hydroceles. 2. Diffuse superficial edema likely from anasarca. Hamzah Dejesus MD Head CT 01/02/17 0000 Signed Impressions: Service Date/Time: Monday, January 02, 2017 20:18 - CONCLUSION: 1. No acute abnormality seen. 2. Age-related atrophy and suspected small vessel ischemic change in the white matter. 3. Mild right supraorbital scalp swelling. Hamzah Dejesus MD Cervical Spine CT 01/02/17 0000 Signed Impressions: Service Date/Time: Monday, January 02, 2017 20:17 - CONCLUSION: Degenerative change. An acute bony abnormality is not seen. Hamzah Dejesus MD Objective Remarks GENERAL: Alert, NAD. SKIN: Warm and dry. HEAD: Normocephalic. EYES: No scleral icterus. No injection or drainage. NECK: Supple, trachea midline. No JVD or lymphadenopathy. CARDIOVASCULAR: Regular rate and rhythm without murmurs, gallops, or rubs. RESPIRATORY: Breath sounds equal bilaterally. No accessory muscle use. GASTROINTESTINAL: Abdomen soft, non-tender, nondistended. MUSCULOSKELETAL: No cyanosis. 2+ edema in the lower ext bilaterally. PATRICK hose on. BACK: Nontender without obvious deformity. No CVA tenderness. Procedures None. A/P Assessment and Plan Mr. Lala is an 81 year old male who was brought to the ED after he fell and could not get up. Son found him after unknown period of time. Per EMS, patient' s living condition is extremely disheveled and unkept. Inside temp was around 90 degrees and patient was lying down on the floor. Patient apparently stopped taking all his medications three months ago on his own. - Acute kidney injury - Probably due to volume depletion due to hot weather, lack of proper oral fluid intake. - Creatinine 5.09 --> 4.98 - no significant improvement. - Nephrology consulted - switched IV fluid from NS to D5 with Bicarb @ 75cc/ hour. - Bilateral lower extremity stasis dermatitis - Redness on both legs - less likely due to infectious etiology. - discontinued Cefepime. - Elevate legs and Apply Patrick hose. - May need diuresis - but at this point, diuresis may further contract volume. - Hypertension - Continue Nifedipine 60mg Qday. Will add Hydralazine 25mg PO TID with holding parameters. - Clonidine PRN Full code. Heparin SQ. Jayson Casper DO Jan 04, 2017 10:46 am
--- NOTE | 2017-01-04 11:39 | HHI.NPPN ---
Subjective Renal Failure: Acute Interval History He is awake. Creatinine is slightly better. No acute concerns. (Mikki Arroyo) Objective Data Data 01/03/17 01/04/17 19:00 07:00 Intake Total 1338 ml 480 ml Balance 1338 ml 480 ml Intake Oral 341 ml 480 ml IV Total 997 ml Bladder Scan Volume Amount 82 ml # Voids 3 2 # Bowel Movements 2 Vital Signs Date Time Temp Pulse Resp B/P Pulse Ox O2 Delivery O2 Flow Rate FiO2 01/04/17 08:00 98.0 56 18 178/81 01/04/17 04:00 96.9 58 18 173/79 99 01/04/17 00:00 98.7 67 18 136/70 98 01/03/17 23:52 68 01/03/17 20:30 98.7 64 18 177/81 97 01/03/17 15:50 97.4 70 20 151/68 98 01/03/17 13:27 88 135/73 01/03/17 12:00 65 01/03/17 11:50 97.2 76 20 193/81 99 (Mikki Arroyo) -: 01/03/17 0550 01/04/17 0546 Imaging Last 72 hours Impressions Chest X-Ray 01/02/171854 Signed Impressions: Service Date/Time: Monday, January 02, 2017 18:57 - CONCLUSION: No acute disease. Hamzah Dejesus MD Abdomen/Pelvis CT 01/02/171854 Signed Impressions: Service Date/Time: Monday, January 02, 2017 20:23 - CONCLUSION: 1. No acute abnormality seen. 2. Colonic diverticula without inflammatory change. 3. Degenerative change the lumbar spine and hips. Hamzah Dejesus MD Thoracic Spine CT 01/02/17 0000 Signed Impressions: Service Date/Time: Monday, January 02, 2017 20:28 - CONCLUSION: 1. No acute abnormality is seen. 2. Degenerative change throughout the thoracic spine mainly seen is anterior spurring. 3. Nonspecific solitary of sclerosis at the right T11 lamina. This could represent a bone island or stress reaction. Other causes for focal sclerosis cannot be excluded. Hamzah Dejesus MD Pelvis CT 01/02/17 0000 Signed Impressions: Service Date/Time: Monday, January 02, 2017 22:08 - CONCLUSION: 1. Scrotal swelling and suspected hydroceles. 2. Diffuse superficial edema likely from anasarca. Hamzah Dejesus MD Head CT 01/02/17 Signed Impressions: Service Date/Time: Monday, January 02, 2017 20:18 - CONCLUSION: 1. No acute abnormality seen. 2. Age-related atrophy and suspected small vessel ischemic change in the white matter. 3. Mild right supraorbital scalp swelling. Hamzah Dejesus MD Cervical Spine CT 01/02/17 Signed Impressions: Service Date/Time: Monday, January 02, 2017 20:17 - CONCLUSION: Degenerative change. An acute bony abnormality is not seen. Hamzah Dejesus MD (Mikki Arroyo) Physical Exam General Appearance: Well Developed, Comfortable, Obese (Mikki ArroyoP) Throat Throat Exam: Oral Mucosa [place] & Moist (Mikki ArroyoP) Pulmonary Resp Exam: Clear Bilaterally, Breath Sounds Equal (Mikki ArroyoP) Cardiology CV Exam: Regular, Normal Sinus Rhythm (Mikki ArroyoP) Gastrointestinal/Abdomen GI Exam: Soft, Non-Tender, Bowel Sounds Present (Mikki Arroyo) Musculoskeletal MS Exam: Joints Intact, Normal Gait (Mikki ArroyoP) Integumentary Skin Exam: Clear, Warm (Mikki ArroyoP) Extremeties Extremities Exam: No Edema, Pedal Pulses Palpable (Mikki ArroyoP) Neurologic Neuro Exam: Alert, Awake, Oriented, Speech Clear, Moving All Extremities ( Mkiki Arroyo [employer]) Psychiatric Psych Exam: Appropriate Responses (Mikki Arroyo) Assessment/Plan Discussed Condition With: Patient Assessment Summary: MAAME/Acute Renal Failure Electrolyte Assessment: Hypocalcemia, Metabolic Acidosis Problem List: (1) Acute renal failure Plan: In 2013 his creatinine was 0.98, GFR 74, consistent with CKD II he has proteinuria may have underlying diabetic nephropathy, awaiting protein quantification MAAME may be due to intravascular volume depletion from dehydration, CPK not that high so rhabdomyolysis is less likely CT negative for obstruction, bladder scan negative for retention continue IVF with bicarbonate at 75 cc/hr oral intake encouraged repeat renal panel daily he does not require dialysis at this time (2) Hyperkalemia Plan: K improved, continue bicarb drip (3) Hypertension Plan: continue nifedipine prn clonidine ordered (4) Metabolic acidosis Plan: continue IVF, monitor (5) Poorly controlled diabetes mellitus Plan: monitor glucose resume insulin when appropriate (6) Bilateral lower leg cellulitis Plan: given flagyl, zosyn, vancomycin, and cefepime defer treatment to medical team wound care (Mikki Arroyo) Plan patient was seen and examined. Agree with above assessment and plan. Renal function is slightly better, no need for dialysis. (Juan Antonio Poon MD) Problem Qualifiers (1) Acute renal failure: Qualified Code: N17.9 - Acute renal failure, unspecified acute renal failure type Mikki Arroyo Jan 04, 2017 11:39 Juan Antonio Poon MD Jan 05, 2017 15:28
[2017-01-04 12:00] VITALS: BP 180/81; PULSE 64; RESP 18; TEMP 97.7; O2SAT 100
[2017-01-04] MEDS: INSULIN ASPART SUPPLEMENTAL SCALE SQ SCH ×3 (12:48→22:47)
[2017-01-04 16:00] VITALS: BP 145/68; PULSE 69; RESP 20; TEMP 97.2; O2SAT 96
[2017-01-04] MEDS: hydrALAZINE HCL 25 MG TAB PO SCH ×2 (16:23→22:36)
[2017-01-04 20:00] VITALS: BP 122/59; PULSE 68; RESP 18; TEMP 97.8; O2SAT 96
[2017-01-04] MEDS: INSULIN DETEMIR 100 UNITS/ML VIAL SQ SCH (22:46)
[2017-01-05] VITALS (9 sets, daily range): BP systolic 105–164; BP diastolic 52–92; PULSE 55–89; RESP 16–18; TEMP 96.9–98.5; O2SAT 94–100
[2017-01-05] MEDS: hydrALAZINE HCL 25 MG TAB PO SCH ×3 (05:48→20:53)
[2017-01-05] MEDS: HEPARIN SODIUM - SQ 10,000 UNITS/ML VIAL SQ SCH ×3 (05:49→20:53)
[2017-01-05] MEDS: INSULIN ASPART SUPPLEMENTAL SCALE SQ SCH ×4 (05:49→20:58)
[2017-01-05] MEDS: SODIUM CHLORIDE 0.9% FLUSH 10 ML FLUSH IV FLUSH SCH ×2 (08:13→20:59)
[2017-01-05] MEDS: NIFEdipine 60 MG SUSTAINED RELEASE TAB PO SCH (08:13)
--- NOTE | 2017-01-05 09:46 | HHI.PR ---
Subjective Remarks Follow up for acute kidney injury, diabetes. Patient is doing well. Resting in bed. No chest pain, shortness of breath, fever or chills. Objective Vitals Vital Signs Date Time Temp Pulse Resp B/P Pulse Ox O2 Delivery O2 Flow Rate FiO2 01/05/17 08:00 98.1 84 18 136/92 95 01/05/17 04:30 98.5 71 18 134/63 96 01/05/17 00:00 97.7 82 18 137/65 95 01/04/17 20:00 97.8 68 18 122/59 96 01/04/17 16:00 97.2 69 20 145/68 96 01/04/17 12:00 97.7 64 18 180/81 100 I/O 01/04/17 01/04/17 01/04/17 01/05/17 01/05/17 01/05/17 07:00 15:00 23:00 07:00 15:00 23:00 Intake Total 480 ml 480 ml Balance 480 ml 480 ml Intake Oral 480 ml 480 ml # Voids 2 1 2 # Bowel Movements 0 1 Result Diagram: 01/03/17 0550 01/04/17 0546 Imaging Last Impressions Chest X-Ray 01/02/171854 Signed Impressions: Service Date/Time: Monday, January 02, 2017 18:57 - CONCLUSION: No acute disease. Hamzah Dejesus MD Abdomen/Pelvis CT 01/02/171854 Signed Impressions: Service Date/Time: Monday, January 02, 2017 20:23 - CONCLUSION: 1. No acute abnormality seen. 2. Colonic diverticula without inflammatory change. 3. Degenerative change the lumbar spine and hips. Hamzah Dejesus MD Thoracic Spine CT 01/02/17 0000 Signed Impressions: Service Date/Time: Monday, January 02, 2017 20:28 - CONCLUSION: 1. No acute abnormality is seen. 2. Degenerative change throughout the thoracic spine mainly seen is anterior spurring. 3. Nonspecific solitary of sclerosis at the right T11 lamina. This could represent a bone island or stress reaction. Other causes for focal sclerosis cannot be excluded. Hamzah Dejesus MD Pelvis CT 01/02/17 0000 Signed Impressions: Service Date/Time: Monday, January 02, 2017 22:08 - CONCLUSION: 1. Scrotal swelling and suspected hydroceles. 2. Diffuse superficial edema likely from anasarca. Hamzah Dejesus MD Head CT 01/02/17 0000 Signed Impressions: Service Date/Time: Monday, January 02, 2017 20:18 - CONCLUSION: 1. No acute abnormality seen. 2. Age-related atrophy and suspected small vessel ischemic change in the white matter. 3. Mild right supraorbital scalp swelling. Hamzah Dejesus MD Cervical Spine CT 01/02/17 Signed Impressions: Service Date/Time: Monday, January 02, 2017 20:17 - CONCLUSION: Degenerative change. An acute bony abnormality is not seen. Hamzah Dejesus MD Objective Remarks GENERAL: Alert, NAD. SKIN: Warm and dry. HEAD: Normocephalic. EYES: No scleral icterus. No injection or drainage. NECK: Supple, trachea midline. No JVD or lymphadenopathy. CARDIOVASCULAR: Regular rate and rhythm without murmurs, gallops, or rubs. RESPIRATORY: Breath sounds equal bilaterally. No accessory muscle use. GASTROINTESTINAL: Abdomen soft, non-tender, nondistended. MUSCULOSKELETAL: No cyanosis. 2+ edema in the lower ext bilaterally. PATRICK hose on. BACK: Nontender without obvious deformity. No CVA tenderness. Procedures None. A/P Assessment and Plan Mr. Lala is an 81 year old male who was brought to the ED after he fell and could not get up. Son found him after unknown period of time. Per EMS, patient' s living condition is extremely disheveled and unkept. Inside temp was around 90 degrees and patient was lying down on the floor. Patient apparently stopped taking all his medications three months ago on his own. - Acute kidney injury - Probably due to volume depletion due to hot weather, lack of proper oral fluid intake. - Creatinine 5.09 --> 4.98 --> 5.14 - Nephrology consulted - switched IV fluid from NS to D5 with Bicarb @ 75cc/ hour. - Bilateral lower extremity stasis dermatitis - Redness on both legs - less likely due to infectious etiology. - discontinued Cefepime. - Elevate legs and Apply Patrick hose. - May need diuresis - but at this point, diuresis may further contract volume. - Will add BNP. If elevated, we will consider getting an Echocardiogram. - Hypertension - Continue Nifedipine 60mg Qday. Continue Hydralazine 25mg PO TID with holding parameters. - Clonidine PRN - Diabetes mellitus - Added Levemir 5 units QHS and continue sliding scale insulin. Full code. Heparin SQ. Jayson Casper DO Jan 05, 2017 9:46 am
[2017-01-05 11:23] LABS: BICARBONATE 25.2 MEQ/L (21.0-32.0); POTASSIUM 4.4 MEQ/L (3.5-5.1)
--- NOTE | 2017-01-05 13:09 | HHI.NPPN ---
Subjective Renal Failure: Acute Interval History Sitting up on edge of bed. More alert today. Edema is increasing. Creatinine is higher today. (Mikki Arroyo) Objective Data Data 01/04/17 01/05/17 19:00 07:00 Intake Total 480 ml 480 ml Balance 480 ml 480 ml Intake Oral 480 ml 480 ml # Voids 2 1 # Bowel Movements 0 Vital Signs Date Time Temp Pulse Resp B/P Pulse Ox O2 Delivery O2 Flow Rate FiO2 01/05/17 12:41 97.8 55 16 105/52 100 01/05/17 12:40 97.1 81 18 164/77 98 01/05/17 08:00 98.1 84 18 136/92 95 01/05/17 04:30 98.5 71 18 134/63 96 01/05/17 00:00 97.7 82 18 137/65 95 01/04/17 20:00 97.8 68 18 122/59 96 01/04/17 16:00 97.2 69 20 145/68 96 (Mikki Arroyo) -: 01/03/17 0550 01/05/17 1024 Imaging Last 72 hours Impressions Chest X-Ray 01/02/171854 Signed Impressions: Service Date/Time: Monday, January 02, 2017 18:57 - CONCLUSION: No acute disease. Hamzah Dejesus MD Abdomen/Pelvis CT 01/02/171854 Signed Impressions: Service Date/Time: Monday, January 02, 2017 20:23 - CONCLUSION: 1. No acute abnormality seen. 2. Colonic diverticula without inflammatory change. 3. Degenerative change the lumbar spine and hips. Hamzah Dejesus MD (Mikki Arroyo) Physical Exam General Appearance: Well Developed, Comfortable, Obese (Mikki Arroyo) Throat Throat Exam: Oral Mucosa [place] & Moist (Mikki Arroyo) Pulmonary Resp Exam: Clear Bilaterally, Breath Sounds Equal (Mikki Arroyo) Cardiology CV Exam: Regular, Normal Sinus Rhythm (Mikki Arroyo) Gastrointestinal/Abdomen GI Exam: Soft, Non-Tender, Bowel Sounds Present (Mikki Arroyo) Musculoskeletal MS Exam: Joints Intact, Normal Gait (Mikki Arroyo) Integumentary Skin Exam: Warm, Dry, Lesion(s) (Mikki Arroyo) Extremeties Extremities Exam: Pedal Pulses Palpable, Moderate Edema Extremeties Remarks erythema to lower extremities, lower extremity edema (Mikki Arroyo) Neurologic Neuro Exam: Alert, Awake, Oriented, Speech Clear, Moving All Extremities ( Mikki Arroyo) Psychiatric Psych Exam: Appropriate Responses (Mikki Arroyo) Assessment/Plan Discussed Condition With: Patient Assessment Summary: MAAME/Acute Renal Failure Electrolyte Assessment: Hypocalcemia, Metabolic Acidosis Problem List: (1) Acute renal failure Plan: In 2013 his creatinine was 0.98, GFR 74, consistent with CKD II he has proteinuria may have underlying diabetic nephropathy, awaiting protein quantification, I asked the nurse to collect MAAME may be due to intravascular volume depletion from dehydration creatinine is worse today edema increasing, IVF has been stopped nonoliguric but incontinent of urine give a dose of Bumex and monitor oral intake encouraged repeat renal panel daily he does not require dialysis at this time (2) Bilateral lower leg cellulitis Plan: given flagyl, zosyn, vancomycin, and cefepime defer treatment to medical team continue wound care (3) Hypertension Plan: continue nifedipine prn clonidine ordered (4) Hyperkalemia Plan: corrected, monitor (5) Metabolic acidosis Plan: corrected, monitor (6) Poorly controlled diabetes mellitus Plan: monitor glucose, goal 140-180 mg/dL continue insulin (Mikki Arroyo) Plan patient was seen and examined. Renal function is not improving as expected, if it were to be pre-renal. Could be ATN. Since he has some proteinuria, I will order serologies. Repeat UA. Monitor. No immediate need for dialysis. (Juan Antonio Poon MD) Problem Qualifiers (1) Acute renal failure: Qualified Code: N17.9 - Acute renal failure, unspecified acute renal failure type Mikki Arroyo Jan 05, 2017 13:09 Juan Antonio Poon MD Jan 05, 2017 15:43
[2017-01-05] MEDS ORDERED: BUMETANIDE INJ 1 MG/4 ML VIAL IV PUSH ONE (13:15)
[2017-01-05 20:27] LABS: TOTAL PROTEIN SPE 5.7 GM/DL (6.0-7.6)
[2017-01-05] MEDS: INSULIN DETEMIR 100 UNITS/ML VIAL SQ SCH (20:57)
[2017-01-06 01:52] LABS: BLOOD, URINE SMALL (NEG); GLUCOSE,URINE 150 mg/dL (NEG); KETONE, URINE NEG (NEG); MUCUS URINE FEW /lpf (OCC); NITRITE,URINE NEG (NEG); URINE COLOR LIGHT-YELLOW (YELLW/STRAW)
[2017-01-06 01:54] LABS: COMMENT (UR) CULT NOT INDICATED; CULTURE IF INDICATED CULT NOT INDICATED
[2017-01-06 05:00] VITALS: BP 146/75; PULSE 78; RESP 18; TEMP 97.1; O2SAT 99
[2017-01-06] MEDS: hydrALAZINE HCL 25 MG TAB PO SCH ×3 (05:05→19:23)
[2017-01-06] MEDS: HEPARIN SODIUM - SQ 10,000 UNITS/ML VIAL SQ SCH ×3 (05:07→21:35)
[2017-01-06] MEDS: INSULIN ASPART SUPPLEMENTAL SCALE SQ SCH ×4 (05:19→19:25)
[2017-01-06 07:06] LABS: BICARBONATE 21.5 MEQ/L (21.0-32.0); POTASSIUM 4.4 MEQ/L (3.5-5.1)
[2017-01-06 08:23] LABS: URINE TOTAL PROTEIN TIMED 277.5 MG/DL
[2017-01-06 08:59] VITALS: BP 143/68; PULSE 77; RESP 18; TEMP 97.9; O2SAT 99
[2017-01-06] MEDS: NIFEdipine 60 MG SUSTAINED RELEASE TAB PO SCH (09:30)
--- NOTE | 2017-01-06 10:07 | HHI.PR ---
Subjective Remarks Follow up for acute kidney injury, diabetes. Mr. Lala is doing well. No acute concerns. No fever, chills. Tolerating diet well. Objective Vitals Vital Signs Date Time Temp Pulse Resp B/P Pulse Ox O2 Delivery O2 Flow Rate FiO2 01/06/17 08:59 97.9 77 18 143/68 99 01/06/17 05:00 97.1 78 18 146/75 99 01/05/17 23:53 96.9 80 18 139/71 98 01/05/17 20:00 97.4 83 18 142/74 96 01/05/17 16:00 97.9 89 18 145/67 94 01/05/17 13:15 139/65 01/05/17 12:40 97.1 81 18 164/77 98 I/O 01/05/17 01/05/17 01/05/17 01/06/17 01/06/17 01/06/17 07:00 15:00 23:00 07:00 15:00 23:00 Intake Total 720 ml 480 ml 240 ml Output Total 225 ml Balance 720 ml 480 ml 15 ml Intake Oral 720 ml 480 ml 240 ml Output Urine Total 225 ml # Voids 3 2 1 # Bowel Movements 1 2 Result Diagram: 01/03/17 0550 01/06/17 0559 Imaging Last Impressions Chest X-Ray 01/02/171854 Signed Impressions: Service Date/Time: Monday, January 02, 2017 18:57 - CONCLUSION: No acute disease. Hamzah Dejesus MD Abdomen/Pelvis CT 01/02/171854 Signed Impressions: Service Date/Time: Monday, January 02, 2017 20:23 - CONCLUSION: 1. No acute abnormality seen. 2. Colonic diverticula without inflammatory change. 3. Degenerative change the lumbar spine and hips. Hamzah Dejesus MD Thoracic Spine CT 01/02/17 0000 Signed Impressions: Service Date/Time: Monday, January 02, 2017 20:28 - CONCLUSION: 1. No acute abnormality is seen. 2. Degenerative change throughout the thoracic spine mainly seen is anterior spurring. 3. Nonspecific solitary of sclerosis at the right T11 lamina. This could represent a bone island or stress reaction. Other causes for focal sclerosis cannot be excluded. Hamzah Dejesus MD Pelvis CT 01/02/17 0000 Signed Impressions: Service Date/Time: Monday, January 02, 2017 22:08 - CONCLUSION: 1. Scrotal swelling and suspected hydroceles. 2. Diffuse superficial edema likely from anasarca. Hamzah Dejesus MD Head CT 01/02/17 0000 Signed Impressions: Service Date/Time: Monday, January 02, 2017 20:18 - CONCLUSION: 1. No acute abnormality seen. 2. Age-related atrophy and suspected small vessel ischemic change in the white matter. 3. Mild right supraorbital scalp swelling. Hamzah Dejesus MD Cervical Spine CT 01/02/17 0000 Signed Impressions: Service Date/Time: Monday, January 02, 2017 20:17 - CONCLUSION: Degenerative change. An acute bony abnormality is not seen. Hamzah Dejesus MD Objective Remarks GENERAL: Alert, NAD. SKIN: Warm and dry. HEAD: Normocephalic. EYES: No scleral icterus. No injection or drainage. NECK: Supple, trachea midline. No JVD or lymphadenopathy. CARDIOVASCULAR: Regular rate and rhythm without murmurs, gallops, or rubs. RESPIRATORY: Breath sounds equal bilaterally. No accessory muscle use. GASTROINTESTINAL: Abdomen soft, non-tender, nondistended. MUSCULOSKELETAL: No cyanosis. 2+ edema in the lower ext bilaterally. BARB hose on. BACK: Nontender without obvious deformity. No CVA tenderness. Procedures None. A/P Assessment and Plan Mr. Lala is an 81 year old male who was brought to the ED after he fell and could not get up. Son found him after unknown period of time. Per EMS, patient' s living condition is extremely disheveled and unkept. Inside temp was around 90 degrees and patient was lying down on the floor. Patient apparently stopped taking all his medications three months ago on his own. - Acute kidney injury - Severe proteinuria. - Probably due to volume depletion due to hot weather, lack of proper oral fluid intake. - Creatinine 5.09 --> 4.98 --> 5.14 --> 5.13. - Nephrology consulted - switched IV fluid from NS to D5 with Bicarb @ 75cc/ hour. - Hepatitis panel, p-ANCA, c-ANCA, DIANA pending. - Bilateral lower extremity stasis dermatitis - Redness on both legs - less likely due to infectious etiology. - discontinued Cefepime. - Elevate legs and Apply Barb hose. - Received Bumex per Nephrology. - BNP was 226. - Hypertension - Continue Nifedipine 60mg Qday. Continue Hydralazine 25mg PO TID with holding parameters. - Clonidine PRN - Diabetes mellitus - Added Levemir 5 units QHS and continue sliding scale insulin. Full code. Heparin SQ. Jayson Casper DO Jan 06, 2017 10:07 am
--- NOTE | 2017-01-06 10:36 | HHI.NPPN ---
Subjective Renal Failure: Acute Interval History patient is comfortable. Has no specific complaints. Review of Systems General Constitutional: Fatigue Objective Data Data 01/05/17 01/06/17 19:00 07:00 Intake Total 960 ml 480 ml Output Total 225 ml Balance 960 ml 255 ml Intake Oral 960 ml 480 ml Output Urine Total 225 ml # Voids 5 1 # Bowel Movements 3 Vital Signs Date Time Temp Pulse Resp B/P Pulse Ox O2 Delivery O2 Flow Rate FiO2 01/06/17 08:59 97.9 77 18 143/68 99 01/06/17 05:00 97.1 78 18 146/75 99 01/05/17 23:53 96.9 80 18 139/71 98 01/05/17 20:00 97.4 83 18 142/74 96 01/05/17 16:00 97.9 89 18 145/67 94 01/05/17 13:15 139/65 01/05/17 12:40 97.1 81 18 164/77 98 -: 01/03/17 0550 01/06/17 0559 Physical Exam General Appearance: Well Developed, Comfortable, Obese Throat Throat Exam: Oral Mucosa [place] & Moist Pulmonary Resp Exam: Clear Bilaterally, Breath Sounds Equal Cardiology CV Exam: Regular, Normal Sinus Rhythm Gastrointestinal/Abdomen GI Exam: Soft, Non-Tender, Bowel Sounds Present Musculoskeletal MS Exam: Joints Intact, Normal Gait Integumentary Skin Exam: Warm, Dry, Lesion(s) Extremeties Extremities Exam: Pedal Pulses Palpable, Trace Edema Neurologic Neuro Exam: Alert, Awake, Oriented, Speech Clear, Moving All Extremities Psychiatric Psych Exam: Appropriate Responses Assessment/Plan Discussed Condition With: Patient Assessment Summary: MAAME/Acute Renal Failure Electrolyte Assessment: Hypocalcemia, Metabolic Acidosis Problem List: (1) Acute renal failure Plan: In 2013 his creatinine was 0.98, GFR 74. Renal function has not improved significantly. He does have significant proteinuria. I have serologies. Monitor renal function. Avoid nephrotoxic agents. (2) Bilateral lower leg cellulitis Plan: Antibiotics have been stopped. (3) Hypertension Plan: continue nifedipine prn clonidine ordered (4) Hyperkalemia Plan: corrected, monitor (5) Metabolic acidosis Plan: corrected, monitor (6) Poorly controlled diabetes mellitus Plan: monitor glucose, goal 140-180 mg/dL continue insulin Plan patient was seen and examined. Renal function is not improving as expected, if it were to be pre-renal. Could be ATN. Since he has some proteinuria, I will order serologies. Repeat UA. Monitor. No immediate need for dialysis. Problem Qualifiers (1) Acute renal failure: Qualified Code: N17.9 - Acute renal failure, unspecified acute renal failure type Juan Antonio Poon MD Jan 06, 2017 10:36
[2017-01-06 12:00] VITALS: BP 131/67; PULSE 82; RESP 18; TEMP 98.2; O2SAT 96
[2017-01-06 16:00] VITALS: BP 159/74; PULSE 84; RESP 18; TEMP 98.2; O2SAT 96
[2017-01-06] MEDS: INSULIN DETEMIR 100 UNITS/ML VIAL SQ SCH (19:25)
[2017-01-06] MEDS: SODIUM CHLORIDE 0.9% FLUSH 10 ML FLUSH IV FLUSH SCH (19:26)
[2017-01-06 20:00] VITALS: BP 157/75; PULSE 87; RESP 18; TEMP 98.9; O2SAT 96
[2017-01-06] MEDS ORDERED: traMADol HCL 50 MG TAB PO ONE (22:00)
[2017-01-07] VITALS (7 sets, daily range): BP systolic 137–179; BP diastolic 67–82; PULSE 74–88; RESP 12–18; TEMP 97.1–98.7; O2SAT 95–98
[2017-01-07] MEDS: HEPARIN SODIUM - SQ 10,000 UNITS/ML VIAL SQ SCH ×2 (05:08→22:00)
[2017-01-07] MEDS: hydrALAZINE HCL 25 MG TAB PO SCH ×3 (05:08→22:00)
[2017-01-07] MEDS: INSULIN ASPART SUPPLEMENTAL SCALE SQ SCH ×4 (05:12→22:35)
[2017-01-07 08:35] LABS: BICARBONATE 22.8 MEQ/L (21.0-32.0); POTASSIUM 4.6 MEQ/L (3.5-5.1)
--- NOTE | 2017-01-07 09:05 | HHI.NPPN ---
Subjective Renal Failure: Acute Interval History Stable renal function. Non oliguric. Notes were reviewed. Patient has no specific complaints. Review of Systems General Constitutional: Fatigue Objective Data Data 01/06/17 01/07/17 18:59 06:59 Intake Total 720 ml Balance 720 ml Intake Oral 720 ml # Voids 3 1 # Bowel Movements 1 Vital Signs Date Time Temp Pulse Resp B/P Pulse Ox O2 Delivery O2 Flow Rate FiO2 01/07/17 04:00 97.6 76 16 144/67 95 01/07/17 00:00 98.5 82 18 156/73 96 01/06/17 20:00 98.9 87 18 157/75 96 01/06/17 16:00 98.2 84 18 159/74 96 01/06/17 12:00 98.2 82 18 131/67 96 -: 01/03/17 0550 01/07/17 0730 Physical Exam General Appearance: Well Developed, Comfortable, Obese Throat Throat Exam: Oral Mucosa [place] & Moist Pulmonary Resp Exam: Clear Bilaterally, Breath Sounds Equal Cardiology CV Exam: Regular, Normal Sinus Rhythm Gastrointestinal/Abdomen GI Exam: Soft, Non-Tender, Bowel Sounds Present Musculoskeletal MS Exam: Joints Intact, Normal Gait Integumentary Skin Exam: Warm, Dry, Lesion(s) Extremeties Extremities Exam: Pedal Pulses Palpable, Trace Edema Neurologic Neuro Exam: Alert, Awake, Oriented, Speech Clear, Moving All Extremities Psychiatric Psych Exam: Appropriate Responses Assessment/Plan Discussed Condition With: Patient Assessment Summary: MAAME/Acute Renal Failure Electrolyte Assessment: Hypocalcemia, Metabolic Acidosis Problem List: (1) Acute renal failure Plan: In 2013 his creatinine was 0.98, GFR 74. Stable renal function, but it did not improve significantly. New baseline? May have suffered ATN? Serologies ordered, pending. Complements not low. Monitor renal function. Avoid nephrotoxic agents. (2) Lower extremity edema Plan: Agree with Dr. Casper that edema is not due to infection. Agree with stopping antibiotic. Continue Tedhose. In addition, patient is on Nifedipine which can cause lower extremity edema. Reduce the dose, and if possible taper it off. (3) Hypertension Plan: See above. (4) Hyperkalemia Plan: corrected, monitor (5) Metabolic acidosis Plan: corrected, monitor (6) Poorly controlled diabetes mellitus Plan: monitor glucose, goal 140-180 mg/dL continue insulin Problem Qualifiers (1) Acute renal failure: Qualified Code: N17.9 - Acute renal failure, unspecified acute renal failure type Juan Antonio Poon MD Jan 07, 2017 09:05
--- NOTE | 2017-01-07 10:03 | HHI.PR ---
Subjective Remarks Follow up for acute kidney injury, diabetes. Patient is doing well. No acute concerns. No fever, chills. Objective Vitals Vital Signs Date Time Temp Pulse Resp B/P Pulse Ox O2 Delivery O2 Flow Rate FiO2 01/07/17 04:00 97.6 76 16 144/67 95 01/07/17 00:00 98.5 82 18 156/73 96 01/06/17 20:00 98.9 87 18 157/75 96 01/06/17 16:00 98.2 84 18 159/74 96 01/06/17 12:00 98.2 82 18 131/67 96 I/O 01/06/17 01/06/17 01/06/17 01/07/17 01/07/17 01/07/17 07:00 15:00 23:00 07:00 15:00 23:00 Intake Total 240 ml 720 ml Output Total 225 ml Balance 15 ml 720 ml Intake Oral 240 ml 720 ml Output Urine Total 225 ml # Voids 1 2 2 # Bowel Movements 1 Result Diagram: 01/03/17 0550 01/07/17 0730 Imaging Last Impressions Chest X-Ray 01/02/171854 Signed Impressions: Service Date/Time: Monday, January 02, 2017 18:57 - CONCLUSION: No acute disease. Hamzah Dejesus MD Abdomen/Pelvis CT 01/02/171854 Signed Impressions: Service Date/Time: Monday, January 02, 2017 20:23 - CONCLUSION: 1. No acute abnormality seen. 2. Colonic diverticula without inflammatory change. 3. Degenerative change the lumbar spine and hips. Hamzah Dejesus MD Thoracic Spine CT 01/02/17 0000 Signed Impressions: Service Date/Time: Monday, January 02, 2017 20:28 - CONCLUSION: 1. No acute abnormality is seen. 2. Degenerative change throughout the thoracic spine mainly seen is anterior spurring. 3. Nonspecific solitary of sclerosis at the right T11 lamina. This could represent a bone island or stress reaction. Other causes for focal sclerosis cannot be excluded. Hamzah Dejesus MD Pelvis CT 01/02/17 0000 Signed Impressions: Service Date/Time: Monday, January 02, 2017 22:08 - CONCLUSION: 1. Scrotal swelling and suspected hydroceles. 2. Diffuse superficial edema likely from anasarca. Hamzah Dejesus MD Head CT 01/02/17 0000 Signed Impressions: Service Date/Time: Monday, January 02, 2017 20:18 - CONCLUSION: 1. No acute abnormality seen. 2. Age-related atrophy and suspected small vessel ischemic change in the white matter. 3. Mild right supraorbital scalp swelling. Hamzah Dejesus MD Cervical Spine CT 01/02/17 0000 Signed Impressions: Service Date/Time: Monday, January 02, 2017 20:17 - CONCLUSION: Degenerative change. An acute bony abnormality is not seen. Hamzah Dejesus MD Objective Remarks GENERAL: Alert, NAD. SKIN: Warm and dry. HEAD: Normocephalic. EYES: No scleral icterus. No injection or drainage. NECK: Supple, trachea midline. No JVD or lymphadenopathy. CARDIOVASCULAR: Regular rate and rhythm without murmurs, gallops, or rubs. RESPIRATORY: Breath sounds equal bilaterally. No accessory muscle use. GASTROINTESTINAL: Abdomen soft, non-tender, nondistended. MUSCULOSKELETAL: No cyanosis. 2+ edema in the lower ext bilaterally. BARB hose on. BACK: Nontender without obvious deformity. No CVA tenderness. Procedures None. A/P Assessment and Plan Mr. Lala is an 81 year old male who was brought to the ED after he fell and could not get up. Son found him after unknown period of time. Per EMS, patient' s living condition is extremely disheveled and unkept. Inside temp was around 90 degrees and patient was lying down on the floor. Patient apparently stopped taking all his medications three months ago on his own. - Acute kidney injury - Severe proteinuria. - Probably due to volume depletion due to hot weather, lack of proper oral fluid intake. - Possible CKD with superimposed acute tubular necrosis. - Creatinine 5.09 --> 4.98 --> 5.14 --> 5.13--> 5.02. - Nephrology consulted - switched IV fluid from NS to D5 with Bicarb @ 75cc/ hour. - Hepatitis panel, p-ANCA, c-ANCA, DIANA pending. - Bilateral lower extremity stasis dermatitis - Redness on both legs - less likely due to infectious etiology. - discontinued Cefepime. - Elevate legs and Apply Barb hose. - Received Bumex per Nephrology. - BNP was 226. - Hypertension - Continue Nifedipine 60mg Qday. Continue Hydralazine 25mg PO TID with holding parameters. - Clonidine PRN - Diabetes mellitus - Added Levemir 5 units QHS and continue sliding scale insulin. Full code. Heparin SQ. Discussed with Dr. Mcintyre. Jayson Casper DO Jan 07, 2017 10:03 am
[2017-01-07] MEDS: SODIUM CHLORIDE 0.9% FLUSH 10 ML FLUSH IV FLUSH SCH ×2 (10:38→21:00)
[2017-01-07] MEDS: INSULIN DETEMIR 100 UNITS/ML VIAL SQ SCH (22:35)
[2017-01-08] VITALS: BP 140/72; PULSE 86; RESP 18; TEMP 96.9; O2SAT 96
[2017-01-08 04:00] VITALS: BP 149/86; PULSE 88; RESP 18; TEMP 98.2; O2SAT 96
[2017-01-08] MEDS: INSULIN ASPART SUPPLEMENTAL SCALE SQ SCH ×4 (06:42→22:08)
[2017-01-08] MEDS: hydrALAZINE HCL 25 MG TAB PO SCH ×3 (06:42→22:00)
[2017-01-08] MEDS: HEPARIN SODIUM - SQ 10,000 UNITS/ML VIAL SQ SCH ×3 (06:42→22:00)
[2017-01-08 07:30] VITALS: BP 168/77; PULSE 90; RESP 20; TEMP 97.4; O2SAT 96
[2017-01-08] MEDS: NIFEdipine 30 MG SUSTAINED RELEASE TAB PO SCH (08:37)
[2017-01-08] MEDS: SODIUM CHLORIDE 0.9% FLUSH 10 ML FLUSH IV FLUSH SCH ×2 (08:40→22:09)
--- NOTE | 2017-01-08 09:44 | HHI.PR ---
Subjective Remarks Follow up for acute kidney injury, diabetes. Patient is doing well. No chest pain, shortness of breath, fever, chills. Per RN, when he sits up with legs hanging down, his legs start to get edematous again. Objective Vitals Vital Signs Date Time Temp Pulse Resp B/P Pulse Ox O2 Delivery O2 Flow Rate FiO2 01/08/17 07:30 97.4 90 20 168/77 96 Automatic Cuff 01/08/17 04:00 98.2 88 18 149/86 96 01/08/17 00:00 96.9 86 18 140/72 96 01/07/17 20:00 98.7 88 18 137/69 96 01/07/17 16:00 98.2 84 14 179/82 98 01/07/17 13:35 77 141/79 01/07/17 12:00 97.1 76 12 160/74 97 I/O 01/07/17 01/07/17 01/07/17 01/08/17 01/08/17 01/08/17 07:00 15:00 23:00 07:00 15:00 23:00 Intake Total 480 ml Output Total 1 ml Balance 479 ml Intake Oral 480 ml Stool Total 1 ml # Voids 3 3 Result Diagram: 01/07/17729 Imaging Last Impressions Chest X-Ray 01/02/171854 Signed Impressions: Service Date/Time: Monday, January 02, 2017 18:57 - CONCLUSION: No acute disease. Hamzah Dejesus MD Abdomen/Pelvis CT 01/02/171854 Signed Impressions: Service Date/Time: Monday, January 02, 2017 20:23 - CONCLUSION: 1. No acute abnormality seen. 2. Colonic diverticula without inflammatory change. 3. Degenerative change the lumbar spine and hips. Hamzah Dejesus MD Thoracic Spine CT 01/02/17 Signed Impressions: Service Date/Time: Monday, January 02, 2017 20:28 - CONCLUSION: 1. No acute abnormality is seen. 2. Degenerative change throughout the thoracic spine mainly seen is anterior spurring. 3. Nonspecific solitary of sclerosis at the right T11 lamina. This could represent a bone island or stress reaction. Other causes for focal sclerosis cannot be excluded. Hamzah Dejesus MD Pelvis CT 01/02/17 0000 Signed Impressions: Service Date/Time: Monday, January 02, 2017 22:08 - CONCLUSION: 1. Scrotal swelling and suspected hydroceles. 2. Diffuse superficial edema likely from anasarca. Hamzah Dejesus MD Head CT 01/02/17 Signed Impressions: Service Date/Time: Monday, January 02, 2017 20:18 - CONCLUSION: 1. No acute abnormality seen. 2. Age-related atrophy and suspected small vessel ischemic change in the white matter. 3. Mild right supraorbital scalp swelling. Hamzah Dejesus MD Cervical Spine CT 01/02/17 Signed Impressions: Service Date/Time: Monday, January 02, 2017 20:17 - CONCLUSION: Degenerative change. An acute bony abnormality is not seen. Hamzah Dejesus MD Objective Remarks GENERAL: Alert, NAD. SKIN: Warm and dry. HEAD: Normocephalic. EYES: No scleral icterus. No injection or drainage. NECK: Supple, trachea midline. No JVD or lymphadenopathy. CARDIOVASCULAR: Regular rate and rhythm without murmurs, gallops, or rubs. RESPIRATORY: Breath sounds equal bilaterally. No accessory muscle use. GASTROINTESTINAL: Abdomen soft, non-tender, nondistended. MUSCULOSKELETAL: No cyanosis. 2+ edema in the lower ext bilaterally, edema improving BACK: Nontender without obvious deformity. No CVA tenderness. Procedures None. A/P Assessment and Plan Mr. Lala is an 81 year old male who was brought to the ED after he fell and could not get up. Son found him after unknown period of time. Per EMS, patient' s living condition is extremely disheveled and unkept. Inside temp was around 90 degrees and patient was lying down on the floor. Patient apparently stopped taking all his medications three months ago on his own. - Acute kidney injury - Severe proteinuria. - Probably due to volume depletion due to hot weather, lack of proper oral fluid intake. - Possible CKD with superimposed acute tubular necrosis. - Creatinine 5.09 --> 4.98 --> 5.14 --> 5.13--> 5.02 --> 4.98 - Nephrology following. - Hepatitis panel, p-ANCA, c-ANCA, DIANA pending. - Bilateral lower extremity stasis dermatitis - Redness on both legs - less likely due to infectious etiology. Improved. - discontinued Cefepime. - Elevate legs and Apply Patrick hose. - Received Bumex per Nephrology. - BNP was 226. - Hypertension - Continue Nifedipine 30mg Qday. Continue Hydralazine 25mg PO TID with holding parameters. - Clonidine PRN - Diabetes mellitus - Levemir 5 units QHS and continue sliding scale insulin. Full code. Heparin SQ. Jayson Casper DO Jan 08, 2017 9:44 am
[2017-01-08 10:52] LABS: BICARBONATE 21.6 MEQ/L (21.0-32.0); POTASSIUM 4.5 MEQ/L (3.5-5.1)
--- NOTE | 2017-01-08 10:59 | HHI.NPPN ---
Subjective Renal Failure: Acute Interval History Daily labs in progress. He is more alert, has no complaints, eating well. ( Mikki Arroyo) Review of Systems General Constitutional: Fatigue (Mikki Arroyo) Objective Data Data 01/07/17 01/08/17 19:00 07:00 Intake Total 480 ml Output Total 1 ml Balance 479 ml Intake Oral 480 ml Stool Total 1 ml # Voids 2 4 Vital Signs Date Time Temp Pulse Resp B/P Pulse Ox O2 Delivery O2 Flow Rate FiO2 01/08/17 07:30 97.4 90 20 168/77 96 Automatic Cuff 01/08/17 04:00 98.2 88 18 149/86 96 01/08/17 00:00 96.9 86 18 140/72 96 01/07/17 20:00 98.7 88 18 137/69 96 01/07/17 16:00 98.2 84 14 179/82 98 01/07/17 13:35 77 141/79 01/07/17 12:00 97.1 76 12 160/74 97 (Mikki Arroyo) -: 01/07/17 0730 Imaging Last Impressions Chest X-Ray 01/02/171854 Signed Impressions: Service Date/Time: Monday, January 02, 2017 18:57 - CONCLUSION: No acute disease. Hamzah Dejesus MD Abdomen/Pelvis CT 01/02/171854 Signed Impressions: Service Date/Time: Monday, January 02, 2017 20:23 - CONCLUSION: 1. No acute abnormality seen. 2. Colonic diverticula without inflammatory change. 3. Degenerative change the lumbar spine and hips. Hamzah Dejesus MD Thoracic Spine CT 01/02/17 0000 Signed Impressions: Service Date/Time: Monday, January 02, 2017 20:28 - CONCLUSION: 1. No acute abnormality is seen. 2. Degenerative change throughout the thoracic spine mainly seen is anterior spurring. 3. Nonspecific solitary of sclerosis at the right T11 lamina. This could represent a bone island or stress reaction. Other causes for focal sclerosis cannot be excluded. Hamzah Dejesus MD Pelvis CT 01/02/17 0000 Signed Impressions: Service Date/Time: Monday, January 02, 2017 22:08 - CONCLUSION: 1. Scrotal swelling and suspected hydroceles. 2. Diffuse superficial edema likely from anasarca. Hamzah Dejesus MD Head CT 01/02/17 0000 Signed Impressions: Service Date/Time: Monday, January 02, 2017 20:18 - CONCLUSION: 1. No acute abnormality seen. 2. Age-related atrophy and suspected small vessel ischemic change in the white matter. 3. Mild right supraorbital scalp swelling. Hamzah Dejesus MD Cervical Spine CT 01/02/17 0000 Signed Impressions: Service Date/Time: Monday, January 02, 2017 20:17 - CONCLUSION: Degenerative change. An acute bony abnormality is not seen. Hamzah Dejesus MD (Mikki Arroyo) Physical Exam General Appearance: Well Developed, No Acute Distress, Comfortable, Obese (Mikki Arroyo) Throat Throat Exam: Oral Mucosa [place] & Moist (Mikki ArroyoP) Pulmonary Resp Exam: Clear Bilaterally, Breath Sounds Equal (Mikki Arroyo) Cardiology CV Exam: Regular, Normal Sinus Rhythm, Good Perfusion (Mikki ArroyoP) Gastrointestinal/Abdomen GI Exam: Soft, Non-Tender, Bowel Sounds Present (Mikki Arroyo) Musculoskeletal MS Exam: Joints Intact, Normal Gait (Mikki Arroyo) Integumentary Skin Exam: Warm, Dry, Lesion(s) (Mikki ArroyoP) Extremeties Extremities Exam: Pedal Pulses Palpable, Trace Edema Extremeties Remarks erythema to lower extremities, lower extremity edema (both have improved) ( Mikki Arroyo) Neurologic Neuro Exam: Alert, Awake, Oriented, Speech Clear, Moving All Extremities ( Mikki ArroyoP) Psychiatric Psych Exam: Appropriate Responses (Mikki Arroyo) Assessment/Plan Discussed Condition With: Patient Assessment Summary: MAAME/Acute Renal Failure Electrolyte Assessment: Hypocalcemia, Metabolic Acidosis Problem List: (1) Acute renal failure Plan: In 2013 his creatinine was 0.98, GFR 74. Exact etiology of renal failure uncertain. May have suffered ATN? His renal function had improved slightly. Although today's labs in process and unavailable. This may be his new renal baseline. He has 2.7 g proteinuria, Serologies and serum electrophoresis are in process, Complement levels are not low. consider starting SALO or ARB in upcoming days. Monitor renal function. Avoid nephrotoxic agents. repeat labs tomorrow (2) Lower extremity edema Plan: Improving, unlikely infectious. Antibiotics have been stopped Continue compression hose. Nifedipine dose reduced, it can cause lower extremity edema. If possible taper it off. (3) Hypertension Plan: Blood pressure is acceptable continue medications as ordered, dosages have been changed. (4) Hyperkalemia Plan: corrected, monitor (5) Metabolic acidosis Plan: corrected, monitor (6) Poorly controlled diabetes mellitus Plan: glucose control has been adequate, [id number] mg/dL continue insulin therapy (Mikki Arroyo) Problem List: (1) Acute renal failure Plan: In 2013 his creatinine was 0.98, GFR 74. Exact etiology of renal failure uncertain. May have suffered ATN? His renal function had improved slightly. Although today's labs in process and unavailable. This may be his new renal baseline. He has 2.7 g proteinuria, Serologies and serum electrophoresis are in process, Complement levels are not low. consider starting SALO or ARB in upcoming days. Monitor renal function. Avoid nephrotoxic agents. repeat labs tomorrow (2) Lower extremity edema Plan: Improving, unlikely infectious. Antibiotics have been stopped Continue compression hose. Nifedipine dose reduced, it can cause lower extremity edema. If possible taper it off. (3) Hypertension Plan: Blood pressure is acceptable continue medications as ordered, dosages have been changed. (4) Hyperkalemia Plan: corrected, monitor (5) Metabolic acidosis Plan: corrected, monitor (6) Poorly controlled diabetes mellitus Plan: glucose control has been adequate, [id number] mg/dL continue insulin therapy Plan patient was seen and examined. Agree with above assessment and plan. (Juan Anotnio Poon MD) Problem Qualifiers (1) Acute renal failure: Qualified Code: N17.9 - Acute renal failure, unspecified acute renal failure type Mikki Arroyo Jan 08, 2017 10:59 Juan Antonio Poon MD Jan 08, 2017 20:26
[2017-01-08 11:30] VITALS: BP 145/67; PULSE 78; RESP 20; TEMP 99; O2SAT 97
[2017-01-08 11:34] LABS: HEPATITIS B SURFACE ANTIBODY 0.1 mIU/mL
[2017-01-08 11:45] LABS: ANA SCREEN NEG (NEG)
[2017-01-08 15:50] VITALS: BP 140/65; PULSE 85; RESP 20; TEMP 98.7; O2SAT 94
[2017-01-08 20:00] VITALS: BP 147/72; PULSE 94; RESP 17; TEMP 98.6; O2SAT 98
[2017-01-08 21:01] LABS: ALBUMIN SPE 3.2 GM/DL (3.50-5.00); ALPHA 1 GLOBULIN 0.26 GM/DL (0.11-0.29)
[2017-01-08 21:02] LABS: ALPHA 2 GLOBULIN 0.93 GM/DL (0.22-1.00); BETA GLOBULINS (SPE) 0.58 GM/DL (0.53-1.03)
[2017-01-08] MEDS: INSULIN DETEMIR 100 UNITS/ML VIAL SQ SCH (22:07)
[2017-01-09] VITALS: BP 154/81; PULSE 93; RESP 17; TEMP 98.8; O2SAT 93
[2017-01-09 04:00] VITALS: BP 140/70; PULSE 90; RESP 17; TEMP 97.6; O2SAT 95
[2017-01-09] MEDS: INSULIN ASPART SUPPLEMENTAL SCALE SQ SCH ×4 (05:24→20:28)
[2017-01-09] MEDS: hydrALAZINE HCL 25 MG TAB PO SCH ×3 (05:24→20:26)
[2017-01-09] MEDS: HEPARIN SODIUM - SQ 10,000 UNITS/ML VIAL SQ SCH ×3 (05:25→20:27)
[2017-01-09 07:50] VITALS: BP 166/71; PULSE 90; RESP 20; TEMP 96.7; O2SAT 94
[2017-01-09] MEDS: NIFEdipine 30 MG SUSTAINED RELEASE TAB PO SCH (09:10)
[2017-01-09] MEDS: SODIUM CHLORIDE 0.9% FLUSH 10 ML FLUSH IV FLUSH SCH ×2 (09:12→20:30)
--- NOTE | 2017-01-09 11:20 | HHI.NPPN ---
Subjective Renal Failure: Acute Interval History No acute concerns. Renal function has been improving. He is eating well. ( Mikki Arroyo) Review of Systems General Constitutional: Fatigue (Mikki Arroyo) Objective Data Data 01/08/17 01/09/17 19:00 07:00 Intake Total 220 ml Balance 220 ml Intake Oral 220 ml # Voids 4 4 # Bowel Movements 1 Vital Signs Date Time Temp Pulse Resp B/P Pulse Ox O2 Delivery O2 Flow Rate FiO2 01/09/17 07:50 96.7 90 20 166/71 94 01/09/17 04:00 97.6 90 17 140/70 95 01/09/17 00:00 98.8 93 17 154/81 93 01/08/17 20:00 98.6 94 17 147/72 98 01/08/17 15:50 98.7 85 20 140/65 94 01/08/17 11:30 99.0 78 20 145/67 97 (Mikki Arroyo) -: 01/08/17 0942 Physical Exam General Appearance: Well Developed, No Acute Distress, Comfortable, Obese (Mikki Arroyo) Throat Throat Exam: Oral Mucosa [place] & Moist (Mikki Arroyo) Pulmonary Resp Exam: Clear Bilaterally, Breath Sounds Equal (Mikki Arroyo) Cardiology CV Exam: Regular, Normal Sinus Rhythm, Good Perfusion (Mikki Arroyo) Gastrointestinal/Abdomen GI Exam: Soft, Non-Tender, Bowel Sounds Present (Mikki Arroyo) Musculoskeletal MS Exam: Joints Intact, Normal Gait (Mikki Arroyo) Integumentary Skin Exam: Warm, Dry, Lesion(s) (Mikki Arroyo) Extremeties Extremities Exam: Pedal Pulses Palpable, Trace Edema Extremeties Remarks erythema to lower extremities, lower extremity edema (both have improved) ( Mikki Arroyo) Neurologic Neuro Exam: Alert, Awake, Oriented, Speech Clear, Moving All Extremities ( Mikki Arroyo) Psychiatric Psych Exam: Appropriate Responses (Mikki Arroyo) Assessment/Plan Discussed Condition With: Patient Assessment Summary: MAAME/Acute Renal Failure Electrolyte Assessment: Hypocalcemia Problem List: (1) Acute renal failure Plan: In 2013 his creatinine was 0.98, GFR 74. Exact etiology of renal failure uncertain. May have suffered ATN? His renal function has been improving repeat renal panel in process. He has 2.7 g proteinuria, Serologies and serum electrophoresis are negative so far, also Complement levels are not low. consider starting SALO or ARB in upcoming days. Cardizem is another alternative for renal protection Monitor renal function. Avoid nephrotoxic agents. he is non oliguric (2) Lower extremity edema Plan: Improving,not thoutght to be infectious. Off Antibiotics Continue compression hose. Ambulation recommended, PT has been following Nifedipine dose reduced (3) Hypertension Plan: Blood pressure is acceptable continue medications as ordered (4) Hyperkalemia Plan: corrected, monitor (5) Metabolic acidosis Plan: corrected, monitor (6) Poorly controlled diabetes mellitus Plan: glucose control has been adequate, [id number] mg/dL continue insulin therapy (Mikki Arroyo) Plan patient was seen and examined. No immediate plans for dialysis. He can be discharged from renal standpoint, followup in our office. (Juan Antonio Poon MD) Problem Qualifiers (1) Acute renal failure: Qualified Code: N17.9 - Acute renal failure, unspecified acute renal failure type Mikki Arroyo Jan 09, 2017 11:19 Juan Antonio Poon MD Jan 10, 2017 09:43
[2017-01-09 11:50] VITALS: BP 144/69; PULSE 86; RESP 20; TEMP 96.5; O2SAT 95
--- NOTE | 2017-01-09 12:06 | HHI.PR ---
Subjective Remarks Follow up for acute kidney injury, diabetes. Patient is doing well. No chest pain, SOB, fever, chills. Tolerating diet well. Objective Vitals Vital Signs Date Time Temp Pulse Resp B/P Pulse Ox O2 Delivery O2 Flow Rate FiO2 01/09/17 07:50 96.7 90 20 166/71 94 01/09/17 04:00 97.6 90 17 140/70 95 01/09/17 00:00 98.8 93 17 154/81 93 01/08/17 20:00 98.6 94 17 147/72 98 01/08/17 15:50 98.7 85 20 140/65 94 I/O 01/08/17 01/08/17 01/08/17 01/09/17 01/09/17 01/09/17 07:00 15:00 23:00 07:00 15:00 23:00 Intake Total 220 ml Balance 220 ml Intake Oral 220 ml # Voids 3 4 1 3 # Bowel Movements 1 Result Diagram: 01/08/17 0942 Imaging Last Impressions Chest X-Ray 01/02/171854 Signed Impressions: Service Date/Time: Monday, January 02, 2017 18:57 - CONCLUSION: No acute disease. Hamzah Dejesus MD Abdomen/Pelvis CT 01/02/171854 Signed Impressions: Service Date/Time: Monday, January 02, 2017 20:23 - CONCLUSION: 1. No acute abnormality seen. 2. Colonic diverticula without inflammatory change. 3. Degenerative change the lumbar spine and hips. Hamzah Dejesus MD Thoracic Spine CT 01/02/17 Signed Impressions: Service Date/Time: Monday, January 02, 2017 20:28 - CONCLUSION: 1. No acute abnormality is seen. 2. Degenerative change throughout the thoracic spine mainly seen is anterior spurring. 3. Nonspecific solitary of sclerosis at the right T11 lamina. This could represent a bone island or stress reaction. Other causes for focal sclerosis cannot be excluded. Hamzah Dejesus MD Pelvis CT 01/02/17 0000 Signed Impressions: Service Date/Time: Monday, January 02, 2017 22:08 - CONCLUSION: 1. Scrotal swelling and suspected hydroceles. 2. Diffuse superficial edema likely from anasarca. Hamzah Dejesus MD Head CT 7/4/17 0000 Signed Impressions: Service Date/Time: Monday, January 02, 2017 20:18 - CONCLUSION: 1. No acute abnormality seen. 2. Age-related atrophy and suspected small vessel ischemic change in the white matter. 3. Mild right supraorbital scalp swelling. Hamzah Dejesus MD Cervical Spine CT 01/02/17 0000 Signed Impressions: Service Date/Time: Monday, January 02, 2017 20:17 - CONCLUSION: Degenerative change. An acute bony abnormality is not seen. Hamzah Dejesus MD Objective Remarks GENERAL: Alert, NAD. SKIN: Warm and dry. HEAD: Normocephalic. EYES: No scleral icterus. No injection or drainage. NECK: Supple, trachea midline. No JVD or lymphadenopathy. CARDIOVASCULAR: Regular rate and rhythm without murmurs, gallops, or rubs. RESPIRATORY: Breath sounds equal bilaterally. No accessory muscle use. GASTROINTESTINAL: Abdomen soft, non-tender, nondistended. MUSCULOSKELETAL: No cyanosis. 2+ edema in the lower ext bilaterally, edema improving BACK: Nontender without obvious deformity. No CVA tenderness. Procedures None. A/P Assessment and Plan Mr. Lala is an 81 year old male who was brought to the ED after he fell and could not get up. Son found him after unknown period of time. Per EMS, patient' s living condition is extremely disheveled and unkept. Inside temp was around 90 degrees and patient was lying down on the floor. Patient apparently stopped taking all his medications three months ago on his own. - Acute kidney injury - Severe proteinuria. - Probably due to volume depletion due to hot weather, lack of proper oral fluid intake. - Possible CKD with superimposed acute tubular necrosis. - Creatinine 5.09 --> 4.98 --> 5.14 --> 5.13--> 5.02 --> 4.98 - Nephrology following. - Hepatitis panel negative, p-ANCA, c-ANCA pending. DIANA negative. - Will start Lisinopril 10mg Qday. If BP is well controlled, we will discontinue Nifedipine in the next 1-2 days. - Bilateral lower extremity stasis dermatitis - Redness on both legs - less likely due to infectious etiology. Improved. - discontinued Cefepime. - Elevate legs and Apply Patrick hose. - Received Bumex per Nephrology. - BNP was 226. - Hypertension - Continue Nifedipine 30mg Qday. Continue Hydralazine 25mg PO TID with holding parameters. - Start Lisinopril 10mg Qday. Will consider discontinuing Nifedipine in the next 1-2 days. - Clonidine PRN - Diabetes mellitus - Levemir 5 units QHS and continue sliding scale insulin. Full code. Heparin SQ. Jayson Casper DO Jan 09, 2017 12:06 pm
[2017-01-09] MEDS ORDERED: LISINOPRIL 10 MG TAB PO ONE (12:15)
[2017-01-09 15:50] VITALS: BP 149/66; PULSE 82; RESP 20; TEMP 98; O2SAT 97
[2017-01-09 20:00] VITALS: BP 139/71; PULSE 88; RESP 17; TEMP 97.1; O2SAT 96
[2017-01-09] MEDS: INSULIN DETEMIR 100 UNITS/ML VIAL SQ SCH (20:28)
[2017-01-10] VITALS: BP 159/75; PULSE 86; RESP 18; TEMP 98.7; O2SAT 94
[2017-01-10 05:45] VITALS: BP 130/77; PULSE 92; RESP 14; TEMP 98.2; O2SAT 95
[2017-01-10] MEDS: hydrALAZINE HCL 25 MG TAB PO SCH ×2 (05:46→13:03)
[2017-01-10] MEDS: HEPARIN SODIUM - SQ 10,000 UNITS/ML VIAL SQ SCH ×2 (05:47→13:04)
[2017-01-10] MEDS: INSULIN ASPART SUPPLEMENTAL SCALE SQ SCH ×3 (05:47→17:28)
[2017-01-10 08:00] VITALS: BP 155/70; PULSE 86; RESP 18; TEMP 97.8; O2SAT 96
[2017-01-10 08:35] LABS: BICARBONATE 19.4 MEQ/L (21.0-32.0); POTASSIUM 4.7 MEQ/L (3.5-5.1)
[2017-01-10] MEDS ORDERED: LISINOPRIL 10 MG TAB PO SCH (09:00)
[2017-01-10] MEDS: NIFEdipine 30 MG SUSTAINED RELEASE TAB PO SCH (09:04)
--- NOTE | 2017-01-10 09:04 | HHI.PR ---
Subjective Remarks Follow up for acute on chronic kidney disease, diabetes. Patient is doing well. No acute concerns. No fever, chills. Objective Vitals Vital Signs Date Time Temp Pulse Resp B/P Pulse Ox O2 Delivery O2 Flow Rate FiO2 01/10/17 05:45 98.2 92 14 130/77 95 01/10/17 00:00 98.7 86 18 159/75 94 01/09/17 20:00 97.1 88 17 139/71 96 01/09/17 15:50 98.0 82 20 149/66 97 01/09/17 11:50 96.5 86 20 144/69 95 I/O 01/09/17 01/09/17 01/09/17 01/10/17 01/10/17 01/10/17 07:00 15:00 23:00 07:00 15:00 23:00 Intake Total 920 ml Balance 920 ml Intake Oral 920 ml # Voids 3 1 2 4 # Bowel Movements 1 1 1 Result Diagram: 01/10/1731 Imaging Last Impressions Chest X-Ray 01/02/171854 Signed Impressions: Service Date/Time: Monday, January 02, 2017 18:57 - CONCLUSION: No acute disease. Hamzah Dejesus MD Abdomen/Pelvis CT 01/02/171854 Signed Impressions: Service Date/Time: Monday, January 02, 2017 20:23 - CONCLUSION: 1. No acute abnormality seen. 2. Colonic diverticula without inflammatory change. 3. Degenerative change the lumbar spine and hips. Hamzah Dejesus MD Thoracic Spine CT 01/02/17 Signed Impressions: Service Date/Time: Monday, January 02, 2017 20:28 - CONCLUSION: 1. No acute abnormality is seen. 2. Degenerative change throughout the thoracic spine mainly seen is anterior spurring. 3. Nonspecific solitary of sclerosis at the right T11 lamina. This could represent a bone island or stress reaction. Other causes for focal sclerosis cannot be excluded. Hamzah Dejesus MD Pelvis CT 01/02/17 0000 Signed Impressions: Service Date/Time: Monday, January 02, 2017 22:08 - CONCLUSION: 1. Scrotal swelling and suspected hydroceles. 2. Diffuse superficial edema likely from anasarca. Hamzah Dejesus MD Head CT 7/4/17 0000 Signed Impressions: Service Date/Time: Monday, January 02, 2017 20:18 - CONCLUSION: 1. No acute abnormality seen. 2. Age-related atrophy and suspected small vessel ischemic change in the white matter. 3. Mild right supraorbital scalp swelling. Hamzah Dejesus MD Cervical Spine CT 01/02/17 0000 Signed Impressions: Service Date/Time: Monday, January 02, 2017 20:17 - CONCLUSION: Degenerative change. An acute bony abnormality is not seen. Hamzah Dejesus MD Objective Remarks GENERAL: Alert, NAD. SKIN: Warm and dry. HEAD: Normocephalic. EYES: No scleral icterus. No injection or drainage. NECK: Supple, trachea midline. No JVD or lymphadenopathy. CARDIOVASCULAR: Regular rate and rhythm without murmurs, gallops, or rubs. RESPIRATORY: Breath sounds equal bilaterally. No accessory muscle use. GASTROINTESTINAL: Abdomen soft, non-tender, nondistended. MUSCULOSKELETAL: No cyanosis. 2+ edema in the lower ext bilaterally, edema improving BACK: Nontender without obvious deformity. No CVA tenderness. Procedures None. A/P Assessment and Plan Mr. Lala is an 81 year old male who was brought to the ED after he fell and could not get up. Son found him after unknown period of time. Per EMS, patient' s living condition is extremely disheveled and unkept. Inside temp was around 90 degrees and patient was lying down on the floor. Patient apparently stopped taking all his medications three months ago on his own. - Acute kidney injury - Severe proteinuria. - Probably due to volume depletion due to hot weather, lack of proper oral fluid intake. - Possible CKD with superimposed acute tubular necrosis. - Creatinine 5.09 --> 4.98 --> 5.14 --> 5.13--> 5.02 --> 4.98 - Nephrology following. - Hepatitis panel negative, p-ANCA, c-ANCA pending. DIANA negative. - Will start Lisinopril 10mg Qday. If BP is well controlled, we will discontinue Nifedipine in the next 1-2 days. - Bilateral lower extremity stasis dermatitis - Redness on both legs - less likely due to infectious etiology. Improved. - discontinued Cefepime. - Elevate legs and Apply Patrick hose. - Received Bumex per Nephrology. - BNP was 226. - Hypertension - Continue Nifedipine 30mg Qday. Continue Hydralazine 25mg PO TID with holding parameters. - Start Lisinopril 10mg Qday. Will consider discontinuing Nifedipine in the next 1-2 days. - Clonidine PRN - Diabetes mellitus - Levemir 5 units QHS and continue sliding scale insulin. Full code. Heparin SQ. Jayson Casper DO Jan 10, 2017 09:04
[2017-01-10] MEDS: SODIUM CHLORIDE 0.9% FLUSH 10 ML FLUSH IV FLUSH SCH (09:05)
--- NOTE | 2017-01-10 11:26 | HHI.NPPN ---
Subjective General Problems: Hypertension Renal Failure: Acute Interval History renal function has improved slightly. He has no complaints today. Inquiring about discharge. (Mikki Arroyo) Review of Systems General Constitutional: Fatigue (Mikki Arroyo) Objective Data Data 01/09/17 01/10/17 19:00 07:00 Intake Total 920 ml Balance 920 ml Intake Oral 920 ml # Voids 3 4 # Bowel Movements 2 1 Vital Signs Date Time Temp Pulse Resp B/P Pulse Ox O2 Delivery O2 Flow Rate FiO2 01/10/17 08:00 97.8 86 18 155/70 96 01/10/17 05:45 98.2 92 14 130/77 95 01/10/17 00:00 98.7 86 18 159/75 94 01/09/17 20:00 97.1 88 17 139/71 96 01/09/17 15:50 98.0 82 20 149/66 97 01/09/17 11:50 96.5 86 20 144/69 95 (Mikki Arroyo) -: 01/10/17 0731 Physical Exam General Appearance: Well Developed, No Acute Distress, Comfortable, Obese (Mikki Arroyo) Throat Throat Exam: Oral Mucosa [place] & Moist (Mikki Arroyo) Pulmonary Resp Exam: Clear Bilaterally, Breath Sounds Equal (Mikki Arroyo) Cardiology CV Exam: Regular, Normal Sinus Rhythm, Good Perfusion (Mikki Arroyo) Gastrointestinal/Abdomen GI Exam: Soft, Non-Tender, Bowel Sounds Present (Mikki Arroyo) Musculoskeletal MS Exam: Joints Intact, Normal Gait (Mikki Arroyo) Integumentary Skin Exam: Warm, Dry, Lesion(s) (Mikki Arroyo) Extremeties Extremities Exam: Pedal Pulses Palpable, Trace Edema Extremeties Remarks erythema to lower extremities, lower extremity edema (both have improved) ( Mikki Arroyo) Neurologic Neuro Exam: Alert, Awake, Oriented, Speech Clear, Moving All Extremities ( Mikki Arroyo) Psychiatric Psych Exam: Appropriate Responses (Mikki Arroyo) Assessment/Plan Discussed Condition With: Patient Assessment Summary: MAAME/Acute Renal Failure Electrolyte Assessment: Hypocalcemia Problem List: (1) Acute renal failure Plan: In 2013 his creatinine was 0.98, GFR 74. Exact etiology of renal failure uncertain. May have suffered ATN? His renal function has improved slightly He has 2.7 g proteinuria, Serologies and serum electrophoresis are negative so far, also Complement levels are not low. SALO started Monitor renal function. Avoid nephrotoxic agents. he is non oliguric, and stable for discharge from our perspective we will see him outpatient in CKD clinic in the next 2 weeks. (2) Lower extremity edema Plan: Improving,not thought to be infectious. Off Antibiotics Continue compression hose. Ambulation recommended, PT has been following Nifedipine dose reduced (3) Hypertension Plan: Blood pressure is acceptable continue medications as ordered SALO started (4) Hyperkalemia Plan: corrected, monitor (5) Metabolic acidosis Plan: corrected, monitor (6) Poorly controlled diabetes mellitus Plan: glucose control has been adequate, [id number] mg/dL continue insulin therapy (Mikki Arroyo) Plan patient was seen and examined. Agree with above assessment and plan. Can be discharged with close followup. No immediate need for dialysis. (Juan Antonio Poon MD) Problem Qualifiers (1) Acute renal failure: Qualified Code: N17.9 - Acute renal failure, unspecified acute renal failure type Mikki Arroyo Jan 10, 2017 11:26 Juan Antonio Poon MD Jan 10, 2017 16:57
[2017-01-10 12:00] VITALS: BP 153/70; PULSE 81; RESP 22; TEMP 97.7; O2SAT 97
[2017-01-10] MEDS ORDERED: NIFE30TA8 PO (12:34)
[2017-01-10] MEDS ORDERED: LEVEMIR SQ (12:34)
[2017-01-10] MEDS ORDERED: LISI-515 PO (12:34)
[2017-01-10] MEDS ORDERED: HYDR-3799 PO (12:34)
[2017-01-10] MEDS ORDERED: NOVOLOGP2 SQ (12:34)
[2017-01-10 15:53] LABS: MYELOPEROXIDASE LESS THAN 1.0 AI (<1.0); PROTEINASE-3 LESS THAN 1.0 AI (<1.0)
[2017-01-10 16:00] VITALS: BP 144/77; PULSE 86; RESP 18; TEMP 97.5; O2SAT 94
--- NOTE | 2017-01-10 18:08 | HHI.DS ---
Discharge Summary Admission Date Jan 02, 2017 at 10:53 pm Discharge Date: Jan 10, 2017 Admitting Diagnosis acute renal failure, hyperkalemia, cellulitis of the scrotum/legs (1) Acute renal failure ICD Code: N17.9 Diagnosis: Principal (2) Hypertension ICD Code: I10 Diagnosis: Principal (3) Lower extremity edema ICD Code: R60.0 Procedures None. Brief History - From Admission Written by [place], acting as scribe for Dr. Rangel on 01/03/17 at 02:45. A week or so, the patient has been experiencing chills. The patient reports that his bed collapsed. The patient states he was in pain and could not get up off of the ground. This occurred around noon. He states that his son found him. He is not sure how long he was on the ground. He denies hitting his head or experiencing syncope. He reports back pain. Denies fevers, cough, n/v/d, dysuria, hematuria, chest pain, chest tightness, shortness of breath, dizziness, or unilateral weakness. CBC/BMP: 01/10/17 0731 Significant Findings Laboratory Tests Test 01/08/17 01/10/17 09:42 07:31 Chloride Level 108 MEQ/L 111 MEQ/L (98-107) (98-107) Blood Urea Nitrogen 52 MG/DL (7-18) 56 MG/DL (7-18) Creatinine 4.98 MG/DL 4.81 MG/DL (0.60-1.30) (0.60-1.30) Estimat Glomerular Filtration 11 ML/MIN (>89) 12 ML/MIN (>89) Rate Random Glucose 114 MG/DL 119 MG/DL (74-106) (74-106) Calcium Level 8.1 MG/DL 8.3 MG/DL (8.5-10.1) (8.5-10.1) Carbon Dioxide Level 19.4 MEQ/L (21.0-32.0) Albumin 2.0 GM/DL (3.4-5.0) Imaging Last Impressions Chest X-Ray 01/02/171854 Signed Impressions: Service Date/Time: Monday, January 02, 2017 18:57 - CONCLUSION: No acute disease. Hamzah Dejesus MD Abdomen/Pelvis CT 01/02/171854 Signed Impressions: Service Date/Time: Monday, January 02, 2017 20:23 - CONCLUSION: 1. No acute abnormality seen. 2. Colonic diverticula without inflammatory change. 3. Degenerative change the lumbar spine and hips. Hamzah Dejesus MD Thoracic Spine CT 01/02/17 Signed Impressions: Service Date/Time: Monday, January 02, 2017 20:28 - CONCLUSION: 1. No acute abnormality is seen. 2. Degenerative change throughout the thoracic spine mainly seen is anterior spurring. 3. Nonspecific solitary of sclerosis at the right T11 lamina. This could represent a bone island or stress reaction. Other causes for focal sclerosis cannot be excluded. Hamzah Dejesus MD Pelvis CT 01/02/17 Signed Impressions: Service Date/Time: Monday, January 02, 2017 22:08 - CONCLUSION: 1. Scrotal swelling and suspected hydroceles. 2. Diffuse superficial edema likely from anasarca. Hamzah Dejesus MD Head CT 01/02/17 Signed Impressions: Service Date/Time: Monday, January 02, 2017 20:18 - CONCLUSION: 1. No acute abnormality seen. 2. Age-related atrophy and suspected small vessel ischemic change in the white matter. 3. Mild right supraorbital scalp swelling. Hamzah Dejesus MD Cervical Spine CT 01/02/17 Signed Impressions: Service Date/Time: Monday, January 02, 2017 20:17 - CONCLUSION: Degenerative change. An acute bony abnormality is not seen. Hamzah Dejesus MD PE at Discharge GENERAL: Alert, NAD. SKIN: Warm and dry. HEAD: Normocephalic. EYES: No scleral icterus. No injection or drainage. NECK: Supple, trachea midline. No JVD or lymphadenopathy. CARDIOVASCULAR: Regular rate and rhythm without murmurs, gallops, or rubs. RESPIRATORY: Breath sounds equal bilaterally. No accessory muscle use. GASTROINTESTINAL: Abdomen soft, non-tender, nondistended. MUSCULOSKELETAL: No cyanosis. 2+ edema in the lower ext bilaterally, edema improving BACK: Nontender without obvious deformity. No CVA tenderness. Pt update on day of discharge Patient is doing well. No acute concerns. Denies any chest pain, shortness of breath, fever, chills. Hospital Course Mr. Lala is an 81 year old male who was brought to the ED after he fell and could not get up. Son found him after unknown period of time. Per EMS, patient' s living condition is extremely disheveled and unkept. Inside temp was around 90 degrees and patient was lying down on the floor. Patient apparently stopped taking all his medications three months ago on his own. - Acute kidney injury - Severe proteinuria. - Probably due to volume depletion due to hot weather, lack of proper oral fluid intake. - Possible CKD with superimposed acute tubular necrosis. - Creatinine 5.09 --> 4.98 --> 5.14 --> 5.13--> 5.02 --> 4.98 --> 4.81. - Nephrology following. - Hepatitis panel negative, p-ANCA, c-ANCA unremarkable. DIANA negative. - Continue Lisinopril 10mg Qday, will increase to 20mg on discharge. - Bilateral lower extremity stasis dermatitis - Redness on both legs - less likely due to infectious etiology. Improved. - discontinued Cefepime. - Elevate legs and Apply Patrick hose. - Received Bumex per Nephrology. - BNP was 226. - Hypertension - Continue Nifedipine 30mg Qday. Continue Hydralazine 25mg PO TID with holding parameters. - Continue Lisinopril 10mg Qday. - Clonidine PRN - Diabetes mellitus - Levemir 5 units QHS and continue sliding scale insulin. Nephrology cleared for discharge. Will discharge patient to SNF. Follow up with Nephrology in 2 weeks. Pt Condition on Discharge: Good Discharge Disposition: Discharge to SNF Discharge Time: > 30 minutes Discharge Instructions DIET: Follow Instructions for: Diabetic Diet Activities you can perform: Regular-No Restrictions Follow up Referrals: Nephrology - 2 Weeks with Juan Antonio Poon MD New Medications: Insulin Aspart Inj (Novolog Inj) 1,000 Unit/10 Ml Vial 1-9 UNITS SQ ACHS Max dose at bedtime:( )units; sugars less than 70,(0)units; sugars 150-199,(1) unit; sugars 200-249,(3) units; sugars 250-299,(5) units; sugars 300-349,(7) units; sugars greater than 349,(9) units Blood Sugar Management #10 Ref 0 ML Lisinopril (Lisinopril) 20 Mg Tab 20 MG PO DAILY #30 Ref 0 TAB Hydralazine HCl (Hydralazine HCl) 25 Mg Tablet 25 MG PO Q8HR Blood Pressure Management #90 BOTTLE Insulin Detemir Inj (Levemir Inj) 1,000 unit/ 10 ML Vial 5 UNITS SQ HS Blood Sugar Management #30 INJECTION Nifedipine ER 24 HR (Nifedipine ER 24 HR) 30 Mg Tab 30 MG PO DAILY Blood Pressure Management #30 TAB Jayson Casper DO Jan 10, 2017 18:08
== END 2017-01-10 18:08 | DRG 683 ==
LOC: NEPC 18:38 → NEDA 22:53 → HOCB 01-03 01:06
PROVIDERS: ADMIT Hospitalist; ATTEND Hospitalist
DX: N17.0 Acute kidney failure with tubular necrosis (principal); E87.2 Acidosis; E11.22 Type 2 diabetes mellitus with diabetic chronic kidney disease; M62.82 Rhabdomyolysis; E83.51 Hypocalcemia; E87.5 Hyperkalemia; I12.9 Hypertensive chronic kidney disease with stage 1 through stage 4 chronic kidney disease, or unspecified chronic kidney disease; N18.2 Chronic kidney disease, stage 2 (mild); M19.90 Unspecified osteoarthritis, unspecified site; N49.2 Inflammatory disorders of scrotum; R00.1 Bradycardia, unspecified; R60.0 Localized edema; M10.9 Gout, unspecified; E86.0 Dehydration; K21.9 Gastro-esophageal reflux disease without esophagitis; I16.0 Hypertensive urgency; I87.2 Venous insufficiency (chronic) (peripheral); Z87.891 Personal history of nicotine dependence; Z91.81 History of falling; Z87.442 Personal history of urinary calculi; Z91.19 Patient's noncompliance with other medical treatment and regimen
CPT/HCPCS: 70450; 71010; 72125; 72128; 72192; 74176; 80048; 80053; 80069; 81001; 82043; 82550; 82552; 82948; 83605; 83690; 83880; 84165; 85025; 86021; 86038; 86160; 86317; 86335; 86803; 87040; 87340; 93005; 96365; 96367; 96368; J0692; J1644; J1815; J2543; J3370; J7030; J7050; J7070

== ENCOUNTER 2017-02-20 16:53 | Inpatient (IN) | payer MEDICARE, OTHER ==
[~2017-02-20] VITALS: Ht 167.6 cm; Wt 70.6 kg
[~2017-02-20 16:53] MED LIST changes: -ALLO100T PO; -ASPI81TA21 PO; -DIPH50TA OR; -ERGO5000; -FLAG500T PO; +HYDR-3799 PO; -LEVA500T PO; -LEVE500 PO; +LEVEMIR SQ; -LISI-366 PO; +LISI-515 PO; +NIFE30TA8 PO; -NOVO7030P2 SQ; +NOVOLOGP2 SQ; -OMEP20TA PO; -VITA250L PO
[2017-02-20 17:08] VITALS: BP 149/67; PULSE 65; RESP 18; TEMP 97.7; O2SAT 98
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
[2017-02-20 18:59] LABS: AUTOMATED NEUTROPHIL # 8.2 TH/MM3 (1.8-7.7); BASOPHIL % 0.4 % (0.0-2.0); EOSINOPHIL # 0.5 TH/MM3 (0-0.4); EOSINOPHIL % 4.9 % (0.0-4.0); HEMATOCRIT 30.2 % (39.0-51.0); HEMO FLAGS DIFF FINAL; LYMPH % 12.5 % (9.0-44.0); LYMPHOCYTE # 1.4 TH/MM3 (1.0-4.8); MEAN CELL VOLUME 83.3 FL (80.0-100.0); MEAN CORPUSCULAR HEMOGLOBIN 27.9 PG (27.0-34.0); MEAN CORPUSCULAR HGB CONC 33.5 % (32.0-36.0); MONO % 7.2 % (0.0-8.0); PLATELET COUNT 278 TH/MM3 (150-450); RED BLOOD COUNT 3.62 MIL/MM3 (4.50-5.90); RED CELL DISTRIBUTION WIDTH 15.8 % (11.6-17.2); WHITE BLOOD COUNT 10.9 TH/MM3 (4.0-11.0)
[2017-02-20 19:18] VITALS: BP 153/68; PULSE 60; RESP 16; O2SAT 100
[2017-02-20 19:18] LABS: ALT (GPT) 13 U/L (12-78); ANION GAP 13 MEQ/L (5-15); AST (GOT) 9 U/L (15-37); BICARBONATE 18.2 MEQ/L (21.0-32.0); BLOOD UREA NITROGEN 89 MG/DL (7-18); CHLORIDE 105 MEQ/L (98-107); GLOMERULAR FILTRATION RATE 9 ML/MIN (>89); POTASSIUM 5.2 MEQ/L (3.5-5.1); SODIUM (NA) 136 MEQ/L (136-145)
[2017-02-20 19:20] LABS: ALKALINE PHOSPHATASE 82 U/L (45-117); TOTAL BILIRUBIN ADULT 0.3 MG/DL (0.2-1.0)
[2017-02-20] MEDS ORDERED: LORA-373 PO (19:31)
[2017-02-20] MEDS ORDERED: MILKSUS PO (19:31)
[2017-02-20] MEDS ORDERED: BUME2TAB PO (19:31)
[2017-02-20] MEDS ORDERED: TYLE325T PO (19:31)
[2017-02-20] MEDS ORDERED: SODIUM CHLORIDE 0.9% FLUSH 10 ML FLUSH IV FLUSH PRN (20:30)
[2017-02-20] MEDS ORDERED: ACETAMINOPHEN 325 MG TAB PO PRN ×2 (20:30)
[2017-02-20] MEDS ORDERED: ONDANSETRON HCL 4 MG/2 ML VIAL IVP PRN (20:30)
[2017-02-20] MEDS ORDERED: MAGNESIUM HYDROXIDE SUSP 30 ML CUP PO SCH (20:30)
[2017-02-20] MEDS ORDERED: LORazepam 0.5 MG TAB PO PRN (20:30)
--- NOTE | 2017-02-20 20:41 | RADRPT ---
EXAM DATE/TIME: 02/20/2017 19:49 [place] COMPARISON: CHEST SINGLE AP, January 02, 2017, 18:57. INDICATIONS : Evaluate for lung status. Patient sent to ER for abnormal labs. MEDICAL HISTORY : Cardiovascular disease. Hypertension. Diabetes mellitus type 2. SURGICAL HISTORY : None. ENCOUNTER: Initial ACUITY: 1 day PAIN SCORE: 0/10 LOCATION: Bilateral chest FINDINGS: Underinflated AP view of the chest demonstrates a normal-sized cardiac silhouette. There is mild atel ectasis at the lung bases. No effusion, consolidation, or pneumothorax identified. Bones and soft tis sues demonstrate no acute finding. CONCLUSION: Underinflated examination with atelectasis at the lung bases. Otherwise, no acute finding is identifi ed. Hamzah Greene MD on February 20, 2017 at 20:39 Board Certified Radiologist. This report was verified electronically.
[2017-02-20] MEDS: SODIUM CHLORIDE 0.9% FLUSH 10 ML FLUSH IV FLUSH SCH (21:00)
[2017-02-20] MEDS: INSULIN DETEMIR 100 UNITS/ML VIAL SQ SCH (21:17)
[2017-02-20] MEDS: BUMETANIDE 1 MG TAB PO SCH (21:27)
[2017-02-20] MEDS: hydrALAZINE HCL 25 MG TAB PO SCH (21:28)
--- NOTE | 2017-02-20 23:37 | HHI.HP ---
History of Present Illness Primary Care Physician Robyn Wu MD Admission Diagnosis Acute Renal Failure; Hyperkalemia hypertension celluitis lower extremities Diagnoses: History of Present Illness acute on chronic renal failure with celluitis and 3plus edema Review of Systems Constitutional: COMPLAINS OF: Fatigue Gastrointestinal: COMPLAINS OF: Diarrhea Past Family Social History Allergies: Coded Allergies: codeine (Unverified Allergy, Severe, Hives, 02/20/17) latex (Unverified Allergy, Severe, Hives NEOPRENE LATEX, 02/20/17) PT STATES HE IS NOT ALLERGIC TO LATEX ONLY NEOPRENE. 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 Uncoded Allergies: NEOPRENE (Allergy, Intermediate, Hives, 12/14/04) Past Medical History hypertension IDDM ESRD, Past Surgical History LTKA Catarract Reported Medications Reported Meds & Active Scripts Active Novolog Inj (Insulin Aspart) 1,000 Unit/10 Ml Vial 1-9 Units SQ ACHS Max dose at bedtime:( )units; sugars less than 70,(0)units; sugars 150-199,(1) unit; sugars 200-249,(3) units; sugars 250-299,(5) units; sugars 300-349,(7) units; sugars greater than 349,(9) units Lisinopril 20 Mg Tab 20 Mg PO DAILY Levemir Inj (Insulin Detemir) 1,000 unit/ 10 ML Vial 5 Units SQ HS Hydralazine HCl 25 Mg Tablet 25 Mg PO Q8HR Reported Milk of Magnesia Liq (Magnesium Hydroxide) 400 Mg/5 Ml Susp 30 Ml PO ONCE Lorazepam 0.5 Mg Tab 0.5 Mg PO Q6H PRN Bumetanide 2 Mg Tab 2 Mg PO BID Tylenol (Acetaminophen) 325 Mg Tab 650 Mg PO Q4H PRN Active Ordered Medications Inpatient Medications Acetaminophen (Tylenol) 650 mg Q4H PRN PO PAIN 1 TO 10 AND/OR AGITATION; Start 02/20/17 at 20:30 Bumetanide (Bumetanide) 2 mg BID PO Last administered on 02/20/17t 21:27; Start 02/20/17 at 21:00 Hydralazine HCl (Apresoline) 25 mg Q8HR PO Last administered on 02/20/17 21:28 ; Start 02/20/17 at 22:00 Insulin Detemir (Levemir Inj) 5 units HS SQ Last administered on 02/20/17 21: 17; Start 02/20/17 at 21:00 Lisinopril (Prinivil) 20 mg DAILY PO ; Start 02/21/17 at 09:00 Lorazepam (Ativan) 0.5 mg Q6H PRN PO ANXIETY; Start 02/20/17 at 20:30 Magnesium Hydroxide (Milk Of [place]) 30 ml ONCE PO ; Start 02/20/17 at 20: 30; Stop 02/20/17 at 23:59 Ondansetron HCl (Zofran Inj) 4 mg Q6H PRN IVP NAUSEA OR VOMITING; Start at 20:30 Sodium Chloride (NS Flush) 2 ml BID IV FLUSH ; Start 02/20/17 at 21:00 Family History father in old age mother with copd Physical Exam Vital Signs Vital Signs Date Time Temp Pulse Resp B/P (MAP) Pulse Ox O2 Delivery O2 Flow Rate FiO2 02/20/17 19:18 60 16 153/68 (96) 100 Room Air 02/20/17 17:08 97.7 65 18 149/67 (94) 98 Physical Exam GENERAL: This is a well-nourished, well-developed patient, in no apparent distress. SKIN: No rashes, ecchymoses or lesions. Cool and dry. HEAD: Atraumatic. Normocephalic. No temporal or scalp tenderness. EYES: Pupils equal round and reactive. Extraocular motions intact. No scleral icterus. No injection or drainage.left eye deviates lateralward ENT: Nose without bleeding, purulent drainage or septal hematoma. Throat without erythema, tonsillar hypertrophy or exudate. Uvula midline. Airway patent. NECK: Trachea midline. No JVD or lymphadenopathy. Supple, nontender, no meningeal signs. CARDIOVASCULAR: Regular rate and rhythm without murmurs, gallops, or rubs. RESPIRATORY: Clear to auscultation. Breath sounds equal bilaterally. No wheezes , rales, or rhonchi. GASTROINTESTINAL: Abdomen soft, non-tender, nondistended. No hepato-splenomegaly , or palpable masses. No guarding.mild obesity MUSCULOSKELETAL: Extremities 3 plus edema.and erythema present NEUROLOGICAL: Awake and alert.poor historian Cranial nerves II through XII intact. Motor and sensory grossly within normal limits. Normal speech. Laboratory Laboratory Tests Test 02/20/17 18:05 White Blood Count 10.9 Red Blood Count 3.62 Hemoglobin 10.1 Hematocrit 30.2 Mean Corpuscular Volume 83.3 Mean Corpuscular Hemoglobin 27.9 Mean Corpuscular Hemoglobin Concent 33.5 Red Cell Distribution Width 15.8 Platelet Count 278 Mean Platelet Volume 8.8 Neutrophils (%) (Auto) 75.0 Lymphocytes (%) (Auto) 12.5 Monocytes (%) (Auto) 7.2 Eosinophils (%) (Auto) 4.9 Basophils (%) (Auto) 0.4 Neutrophils # (Auto) 8.2 Lymphocytes # (Auto) 1.4 Monocytes # (Auto) 0.8 Eosinophils # (Auto) 0.5 Basophils # (Auto) 0.0 CBC Comment DIFF FINAL Differential Comment Blood Urea Nitrogen 89 Creatinine 6.05 Random Glucose 122 Total Protein 6.6 Albumin 2.6 Calcium Level 8.4 Alkaline Phosphatase 82 Aspartate Amino Transf (AST/SGOT) 9 Alanine Aminotransferase (ALT/SGPT) 13 Total Bilirubin 0.3 Sodium Level 136 Potassium Level 5.2 Chloride Level 105 Carbon Dioxide Level 18.2 Anion Gap 13 Estimat Glomerular Filtration Rate 9 Result Diagram: 02/20/17180402/20/171804 Course admit consult renal add keflex for legs diurese/dialize Caprini VTE Risk Assessment Caprini VTE Risk Assessment: Mod/High Risk (score >= 2) Caprini Risk Assessment Model Point Value = 1 Point Value = 2 Point Value = 3 Point Value = 5 Age 41-60 Minor surgery BMI > 25 kg/m2 Swollen legs Varicose veins or History of unexplained or recurrent spontaneous Oral contraceptives or hormone replacement Sepsis (< 1 month) Serious lung disease, including pneumonia (< 1 month) Abnormal pulmonary function Acute myocardial infarction Congestive heart failure (< 1 month) History of inflammatory bowel disease Medical patient at bed rest Age 61-74 Arthroscopic surgery Major open surgery (> 45 min) Laparoscopic surgery (> 45 min) Malignancy Confined to bed (> 72 hours) Immobilizing plaster cast Central venous access Age >= 75 History of VTE Family history of VTE Factor V Leiden Prothrombin [id number] Lupus anticoagulant Anticardiolipin antibodies Elevated serum homocysteine Heparin-induced thrombocytopenia Other congenital or acquired thrombophilia Stroke (< 1 month) Elective arthroplasty Hip, pelvis, or leg fracture Acute spinal cord injury (< 1 month) Prophylaxis Regimen Total Risk Factor Score Risk Level Prophylaxis Regimen 0-1 Low Early ambulation 2 Moderate Order ONE of the following: *Sequential Compression Device (SCD) *Heparin 5000 units SQ BID 3-4 Higher Order ONE of the following medications: *Heparin 5000 units SQ TID *Enoxaparin/Lovenox 40 mg SQ daily (WT < 150 kg, CrCl > 30 mL/min) *Enoxaparin/Lovenox 30 mg SQ daily (WT < 150 kg, CrCl > 10-29 mL/min) *Enoxaparin/Lovenox 30 mg SQ BID (WT < 150 kg, CrCl > 30 mL/min) AND/OR *Sequential Compression Device (SCD) 5 or more Highest Order ONE of the following medications: *Heparin 5000 units SQ TID (Preferred with Epidurals) *Enoxaparin/Lovenox 40 mg SQ daily (WT < 150 kg, CrCl > 30 mL/min) *Enoxaparin/Lovenox 30 mg SQ daily (WT < 150 kg, CrCl > 10-29 mL/min) *Enoxaparin/Lovenox 30 mg SQ BID (WT < 150 kg, CrCl > 30 mL/min) AND *Sequential Compression Device (SCD) Assessment and Plan Problem List: (1) Bilateral lower leg cellulitis ICD Codes: L03.116 - Cellulitis of left lower limb; L03.115 - Cellulitis of right lower limb Status: Acute (2) Poorly controlled diabetes mellitus ICD Codes: E11.9 - Poorly controlled diabetes mellitus Status: Acute (3) Hypertension ICD Codes: I10 - Hypertension Status: Acute Assessment and Plan consult renal control sugars and blood pressure add keflex for celluitjorden hernandez Discussed Condition With patient Discharge Planning snf/home Prabhjot Ghotra DO Feb 20, 2017 23:37
[2017-02-21] VITALS (12 sets, daily range): BP systolic 125–180; BP diastolic 53–98; PULSE 67–98; RESP 16–18; TEMP 95.1–96.5; O2SAT 94–100
[2017-02-21] MEDS: hydrALAZINE HCL 25 MG TAB PO SCH ×3 (05:12→23:27)
[2017-02-21 06:49] LABS: AUTOMATED NEUTROPHIL # 7.5 TH/MM3 (1.8-7.7); BASOPHIL % 0.4 % (0.0-2.0); EOSINOPHIL # 0.5 TH/MM3 (0-0.4); EOSINOPHIL % 4.9 % (0.0-4.0); HEMATOCRIT 29.6 % (39.0-51.0); LYMPHOCYTE # 1.1 TH/MM3 (1.0-4.8); MEAN CORPUSCULAR HEMOGLOBIN 27.5 PG (27.0-34.0); MEAN CORPUSCULAR HGB CONC 33.1 % (32.0-36.0); MONO % 7.1 % (0.0-8.0); NEUT % 76.6 % (16.0-70.0); PLATELET COUNT 266 TH/MM3 (150-450); RED BLOOD COUNT 3.57 MIL/MM3 (4.50-5.90); RED CELL DISTRIBUTION WIDTH 15.5 % (11.6-17.2); WHITE BLOOD COUNT 9.8 TH/MM3 (4.0-11.0)
[2017-02-21 06:54] LABS: HEMO FLAGS AUTO DIFF
[2017-02-21 07:33] LABS: BICARBONATE 19.8 MEQ/L (21.0-32.0); POTASSIUM 4.7 MEQ/L (3.5-5.1)
[2017-02-21 08:25] LABS: BANDS 4 % (0-6); EOSINOPHILS 7 % (0-4); POLYS (SEG NEUTROPHILS) 78 % (16-70); WBC DIFF SAMPLE 100
[2017-02-21 08:27] LABS: PLATELET ESTIMATE SMEAR NORMAL (NORMAL); PLATELET MORPHOLOGY NORMAL (NORMAL); SCAN/DIFF FINAL DIFF MANUAL
[2017-02-21] MEDS: LISINOPRIL 20 MG TAB PO SCH (09:14)
[2017-02-21] MEDS: BUMETANIDE 1 MG TAB PO SCH ×2 (09:14→23:27)
[2017-02-21] MEDS ORDERED: VANCOMYCIN INJ 1,000 MG in SODIUM CHLOR 0.9% 250 ML INJ 250 ML IV SCH (10:30)
--- NOTE | 2017-02-21 10:37 | PD.CONS ---
[facility] Service Nephrology Consult Requested By Dr. Ghotra Reason for Consult CKD 5 Primary Care Physician Robyn Wu MD History of Present Illness his is a 81 y/o [id number] male who was admitted for progressive renal failure. He was in the early stages of dialysis planning and fistula creation. We have seen him during the previous admission, with follow up appointment planned for the next few weeks. We received a call about his lab work with his creatinine over 6, GFR below 10. The staff at [facility] reported edema, shortness of breath, therefore we advised to have him admitted for evaluation. PMH of HTN, DM II, hyperlipidemia, he is noncompliant in the past with medications. We were consulted for renal management. He is anemic with Hb of 9.8. Yesterday his potassium was 5.2, has improved to 4.7 today. (Mikki Arroyo) Review of Systems Constitutional: COMPLAINS OF: Fatigue, Change in appetite Respiratory: COMPLAINS OF: Shortness of breath Cardiovascular: COMPLAINS OF: Dyspnea on Exertion, Lower Extremity Edema, DENIES: Chest pain Gastrointestinal: DENIES: Abdominal pain (Mikki Arroyo) Past Family Social History Allergies: Coded Allergies: codeine (Unverified Allergy, Severe, Hives, 02/20/17) latex (Unverified Allergy, Severe, Hives NEOPRENE LATEX, 02/20/17) PT STATES HE IS NOT ALLERGIC TO LATEX ONLY NEOPRENE. 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 Uncoded Allergies: NEOPRENE (Allergy, Intermediate, Hives, 12/14/04) Past Medical History CKD 5 HTN DM II seizures GERD hyperlipidemia non compliance Past Surgical History Hernia repair L TKA cataract repair Reported Medications Novolog Inj (Insulin Aspart) 1,000 Unit/10 Ml Vial 1-9 Units SQ ACHS Max dose at bedtime:( )units; sugars less than 70,(0)units; sugars 150-199,(1) unit; sugars 200-249,(3) units; sugars 250-299,(5) units; sugars 300-349,(7) units; sugars greater than 349,(9) units Lisinopril 20 Mg Tab 20 Mg PO DAILY Levemir Inj (Insulin Detemir) 1,000 unit/ 10 ML Vial 5 Units SQ HS Hydralazine HCl 25 Mg Tablet 25 Mg PO Q8HR Milk of Magnesia Liq (Magnesium Hydroxide) 400 Mg/5 Ml Susp 30 Ml PO ONCE Lorazepam 0.5 Mg Tab 0.5 Mg PO Q6H PRN Bumetanide 2 Mg Tab 2 Mg PO BID Tylenol (Acetaminophen) 325 Mg Tab 650 Mg PO Q4H PRN Active Ordered Medications Current Medications Medications (Trade) Dose Ordered Sig/Maxi Route Start Time Stop Time Status Last Admin (NS Flush) 2 ml UNSCH PRN IV FLUSH 02/20/17 20:30 (NS Flush) 2 ml BID IV FLUSH 02/20/17 21:00 (Tylenol) 650 mg Q4H PRN PO 02/20/17 20:30 (Zofran Inj) 4 mg Q6H PRN IVP 02/20/17 20:30 (Tylenol) 650 mg Q4H PRN PO 02/20/17 20:30 (Bumetanide) 2 mg BID PO 02/20/17 21:00 02/21/17 09:14 (Apresoline) 25 mg Q8HR PO 02/20/17 22:00 02/21/17 05:12 (Levemir Inj) 5 units HS SQ 02/20/17 21:00 02/20/17 21:17 (Prinivil) 20 mg DAILY PO 02/21/17 09:00 02/21/17 09:14 (Ativan) 0.5 mg Q6H PRN PO 02/20/17 20:30 Family History Denies hx of renal impairment Social History normallly lives in [place] with his son currently residing in [facility] former smoker occasional ETOH most of his time is spent in bed, limited mobility, inactive life style needs assistance full code (Mikki Arroyo) Physical Exam Vital Signs Vital Signs Date Time Temp Pulse Resp B/P (MAP) Pulse Ox O2 Delivery O2 Flow Rate FiO2 02/21/17 09:00 180/98 (125) 02/21/17 04:46 96.5 70 18 125/59 (81) 98 02/21/17 04:01 98 02/21/17 02:28 73 02/21/17 00:42 96.1 68 18 136/53 (80) 98 02/20/17 19:18 60 16 153/68 (96) 100 Room Air 02/20/17 17:08 97.7 65 18 149/67 (94) 98 Physical Exam Elderly disheveled male, sleeping but awakens to voice alert/oriented x 3 S1/S2, regular rate, no murmurs lungs clear, decreased in bases abdomen obese, soft, non tender extremities: 2-3+ pedal edema, painful to touch Skin: intact Laboratory Laboratory Tests Test 02/20/17 18:05 02/21/17 01:40 02/21/17 06:30 White Blood Count 10.9 9.8 Red Blood Count 3.62 3.57 Hemoglobin 10.1 9.8 Hematocrit 30.2 29.6 Mean Corpuscular Volume 83.3 83.0 Mean Corpuscular Hemoglobin 27.9 27.5 Mean Corpuscular Hemoglobin Concent 33.5 33.1 Red Cell Distribution Width 15.8 15.5 Platelet Count 278 266 Mean Platelet Volume 8.8 8.1 Neutrophils (%) (Auto) 75.0 76.6 Lymphocytes (%) (Auto) 12.5 11.0 Monocytes (%) (Auto) 7.2 7.1 Eosinophils (%) (Auto) 4.9 4.9 Basophils (%) (Auto) 0.4 0.4 Neutrophils # (Auto) 8.2 7.5 Lymphocytes # (Auto) 1.4 1.1 Monocytes # (Auto) 0.8 0.7 Eosinophils # (Auto) 0.5 0.5 Basophils # (Auto) 0.0 0.0 CBC Comment DIFF FINAL AUTO DIFF Differential Comment FINAL DIFF MANUAL Blood Urea Nitrogen 89 89 Creatinine 6.05 6.16 Random Glucose 122 114 Total Protein 6.6 Albumin 2.6 Calcium Level 8.4 8.1 Alkaline Phosphatase 82 Aspartate Amino Transf (AST/SGOT) 9 Alanine Aminotransferase (ALT/SGPT) 13 Total Bilirubin 0.3 Sodium Level 136 138 Potassium Level 5.2 4.7 Chloride Level 105 105 Carbon Dioxide Level 18.2 19.8 Anion Gap 13 13 Estimat Glomerular Filtration Rate 9 9 Nasal Screen MRSA (PCR) MRSA DETECTED Differential Total Cells Counted 100 Neutrophils % (Manual) 78 Band Neutrophils % 4 Lymphocytes % 9 Monocytes % 2 Eosinophils % 7 Neutrophils # (Manual) 8.0 Platelet Estimate NORMAL Platelet Morphology Comment NORMAL Red Cell Morphology Comment NORMAL (Mikki Arroyo) Result Diagram: 02/21/17 0630 02/21/17 0630 Imaging Last Impressions Chest X-Ray 02/20/17 0000 Signed Impressions: Service Date/Time: Monday, February 20, 2017 19:49 - CONCLUSION: Underinflated examination with atelectasis at the lung bases. Otherwise, no acute finding is identified. Hamzah Greene MD (Mikki Arroyo) Assessment and Plan Problem List: (1) CKD (chronic kidney disease) stage 5, GFR less than 15 ml/min ICD Codes: N18.5 - Chronic kidney disease, stage 5 Plan: progressive renal failure, needs renal replacement therapy he has been evaluated by Dr. Westbrook outpatient, had surgery for AVF planned this month we will consult him to possibly proceed with surgery this admission he is NPO for PermCath today HD tomorrow and Sunday, then MWF, orders have been entered avoid IVF check potassium level daily his metabolic acidosis should correct with dialysis check phosphorus level and initiate binder therapy if needed no dietary protein restriction, IVF is not required He will do outpatient HD at [facility], they are aware and arrangements are in process (2) Lower extremity edema ICD Codes: R60.0 - Localized edema Status: Acute Plan: may have an element of venous insufficiency continue bumex, may reduce dosage after starting dialysis (3) Metabolic acidosis ICD Codes: E87.2 - Metabolic acidosis Status: Acute Plan: should improve with hemodialysis monitor (4) Poorly controlled diabetes mellitus ICD Codes: E11.9 - Poorly controlled diabetes mellitus Status: Acute Plan: continue insulin therapy follow glucose (5) Anemia ICD Codes: D64.9 - Anemia, unspecified Plan: begin epogen with dialysis check iron profile (Mikki Arroyo) Assessment and Plan patient was seen and examined. Agree with above assessment and plan. Patient has fluid overload, very poor renal function. Dialysis to be initiated. (Juan Antonio Poon MD) Mikki Arroyo Feb 21, 2017 10:37 Juan Antoino Poon MD Feb 21, 2017 20:20
--- NOTE | 2017-02-21 11:05 | HHI.PR ---
Subjective Remarks Patient seen at bedside. Denies and CP or SOB. 3 + pitting edema noted in lower extremity Objective Vital Signs Date Time Temp Pulse Resp B/P (MAP) Pulse Ox O2 Delivery O2 Flow Rate FiO2 02/21/17 10:38 95.1 90 175/80 (111) 94 02/21/17 09:00 180/98 (125) 02/21/17 04:46 96.5 70 18 125/59 (81) 98 02/21/17 04:01 98 02/21/17 02:28 73 02/21/17 00:42 96.1 68 18 136/53 (80) 98 02/20/17 19:18 60 16 153/68 (96) 100 Room Air 02/20/17 17:08 97.7 65 18 149/67 (94) 98 I/O 02/20/17 02/20/17 02/20/17 02/21/17 02/21/17 02/21/17 06:59 14:59 22:59 06:59 14:59 22:59 Intake Total 240 ml Balance 240 ml Intake Oral 240 ml # Voids 5 # Bowel Movements 4 Result Diagram: 02/21/17 0630 02/21/17 0630 Imaging Last 72 hours Impressions Chest X-Ray 02/20/17 0000 Signed Impressions: Service Date/Time: Monday, February 20, 2017 19:49 - CONCLUSION: Underinflated examination with atelectasis at the lung bases. Otherwise, no acute finding is identified. Hamzah Greene MD Objective Remarks GENERAL: Alert and not oriented. SKIN: Warm and dry. HEAD: Normocephalic. EYES: No scleral icterus. No injection or drainage. NECK: Supple, trachea midline. No JVD or lymphadenopathy. CARDIOVASCULAR: Regular rate and rhythm without murmurs, gallops, or rubs. 3 + edema noted in lower extremity RESPIRATORY: Breath sounds equal bilaterally. No accessory muscle use. GASTROINTESTINAL: Abdomen soft, non-tender, nondistended. MUSCULOSKELETAL: No cyanosis. BACK: Nontender without obvious deformity. No CVA tenderness. Medications and IVs Current Medications Medications (Trade) Dose Ordered Sig/Maxi Route Start Time Stop Time Status Last Admin (NS Flush) 2 ml UNSCH PRN IV FLUSH 02/20/17 20:30 (NS Flush) 2 ml BID IV FLUSH 02/20/17 21:00 (Tylenol) 650 mg Q4H PRN PO 02/20/17 20:30 (Zofran Inj) 4 mg Q6H PRN IVP 02/20/17 20:30 (Tylenol) 650 mg Q4H PRN PO 02/20/17 20:30 (Bumetanide) 2 mg BID PO 02/20/17 21:00 02/21/17 09:14 (Apresoline) 25 mg Q8HR PO 02/20/17 22:00 02/21/17 05:12 (Levemir Inj) 5 units HS SQ 02/20/17 21:00 02/20/17 21:17 (Prinivil) 20 mg DAILY PO 02/21/17 09:00 02/21/17 09:14 (Ativan) 0.5 mg Q6H PRN PO 02/20/17 20:30 Vancomycin HCl 1000 mg/Sodium Chloride 250 ml @ 250 mls/hr ROLL FORMER IV 02/21/17 10:30 02/25/17 10:29 UNV Assessment and Plan Problem List: (1) CKD (chronic kidney disease) stage 5, GFR less than 15 ml/min ICD Codes: N18.5 - Chronic kidney disease, stage 5 (2) Metabolic acidosis ICD Codes: E87.2 - Metabolic acidosis Status: Acute (3) Lower extremity edema ICD Codes: R60.0 - Localized edema Status: Acute (4) Anemia ICD Codes: D64.9 - Anemia, unspecified (5) Poorly controlled diabetes mellitus ICD Codes: E11.9 - Poorly controlled diabetes mellitus Status: Acute (6) Hypertension ICD Codes: I10 - Hypertension Status: Acute (7) Frequent loose stools ICD Codes: R19.7 - Diarrhea, unspecified (8) Wound of sacral region ICD Codes: S31.000A - Unspecified open wound of lower back and pelvis without penetration into retroperitoneum, initial encounter Assessment and Plan 02/21/17 CKD stage 5- Creat 6.1 and BUN of 89 progressive renal failure. Nephrology consulted. [facility] renal indices and increased edema. Per note had AVF planned this month. He is NPO for perma cath today with dialysis planned for tomorrow and then MWF. Dr. Westbrook consulted. for possible surgery for AVF this admission. He will do outpatient HD at [facility], they are aware and arrangements are in process Edema 3 + pitting edema in lower extremity. On Bumex HTN B/P elevated at 175/80. On lisinopril and hydralazine. Will order PRN vasotec and monitor Diabetes BS AC and HS on long acting insulin and SS. Will monitor BS well controlled Anemia HGB 9.8 today. On epogen and iron profile ordered per nephrology. Wound sacral region Wound care ordered. Frequent loose stools C Diff ordered. GI and DVT prophylaxis ordered. Labs in AM I and the HAND DRY CLEANER have both examined this patient and reviewed this note and I agree with these findings and plan of care. Prabhjot Ghotra DO Discussed Condition With Nursing Discharge Planning SNF [facility] Malik. [facility] Feb 21, 2017 11:05
[2017-02-21] MEDS ORDERED: ENALAPRILAT 1.25 MG/ML VIAL IV PUSH PRN (11:30)
--- NOTE | 2017-02-21 12:34 | PD.WCN.NOT ---
Wound Consult Description: Bilateral groin and scrotal erythema .Denuded skin to bilateral buttocks and perianal area. Communicated with: MORGAN Buitrago and MIRELILE Urban Recommendation: Please cleanse buttock, scrotal, perianal, and groin areas gently with soft clothes, soap and water. Please pat dry and apply thick layer of Calazime barrier cream BID and PRN Additional Information: Patient seen on for evaluation of groin wound management. Patient assessed with bilateral groin, and scrotal erythema that is intact and blanchable and appears to be incontinence associated. Patient turned to R side to reveal Incontinence associated dermatitis and loose stool. Attempted to cleanse patient with soft cloth, soap and water gently. Patient complains of pain and guards area. MORGAN Buitrago and JET WORKER to cleanse patient, apply Calazime barrier cream to bilateral groin, scrotal, buttock and perianal area, and address pain. Tammy Carcmao [facility] Feb 21, 2017 12:34
[2017-02-21] MEDS ORDERED: SODIUM CHLOR 0.9% 1000 ML INJ 1,000 ML OTHER PRN ×2 (13:21)
[2017-02-21] MEDS ORDERED: SODIUM CHLOR 0.9% 1000 ML INJ 1,000 ML IV PRN (13:21)
[2017-02-21] MEDS ORDERED: NITROGLYCERIN 0.4 MG SL 25 TABS/BTL SL PRN (13:30)
[2017-02-21] MEDS ORDERED: GELATIN 12 MM/7 MM FOAM TOP PRN (13:30)
[2017-02-21] MEDS ORDERED: cloNIDine HCL 0.1 MG TAB PO PRN (13:30)
[2017-02-21] MEDS ORDERED: SODIUM CHLORIDE 0.9% FLUSH 10 ML FLUSH IV FLUSH PRN (13:30)
[2017-02-21] MEDS ORDERED: diphenhydrAMINE HCL 25 MG CAP PO PRN (13:30)
[2017-02-21] MEDS ORDERED: ALBUMIN HUMAN 25% 25 GM/100 ML BAGP IV PRN (13:30)
[2017-02-21] MEDS ORDERED: HEPARIN SODIUM - IV 10,000 UNITS/10 ML VIAL IVF PRN (13:30)
[2017-02-21] MEDS ORDERED: ONDANSETRON HCL 4 MG/2 ML VIAL IV PRN (13:30)
[2017-02-21] MEDS ORDERED: MANNITOL 12.5 GM/50 ML VIAL IV PRN (13:30)
[2017-02-21] MEDS ORDERED: ACETAMINOPHEN 325 MG TAB PO PRN (13:30)
[2017-02-21 15:42] LABS: APTT (PATIENT) 32.1 SEC (24.3-30.1); PROTHROMBIN TIME - PATIENT 10.7 SEC (9.8-11.6)
[2017-02-21] MEDS: FAMOTIDINE 20 MG/2 ML VIAL IV PUSH SCH ×2 (16:07→23:28)
[2017-02-21] MEDS: SODIUM CHLORIDE 0.9% FLUSH 10 ML FLUSH IV FLUSH SCH ×2 (16:07→23:35)
[2017-02-21] MEDS ORDERED: MIDAZOLAM HCL 2 MG/2 ML VIAL ONE (16:34)
[2017-02-21] MEDS ORDERED: fentaNYL CITRATE 250 MCG/5 ML AMP ONE (16:35)
[2017-02-21] MEDS ORDERED: LIDOCAINE 2%/EPINEPHrine PF 1:200,000 20ML SDV ONE (16:57)
[2017-02-21] MEDS ORDERED: SODIUM CHLORIDE 0.9% FLUSH 10 ML FLUSH IVF PRN (17:30)
[2017-02-21] MEDS ORDERED: HEPARIN SODIUM - IV 2,000 UNITS/2 ML VIAL IV FLUSH PRN (17:30)
--- NOTE | 2017-02-21 17:33 | PD.RAD ---
Post Procedure Progress Note Pre Procedure Diagnosis: (1) Chronic renal insufficiency (2) Acute renal failure Post Procedure Diagnosis: (1) Chronic renal insufficiency (2) Acute renal failure Procedure Date: Feb 21, 2017 Supervising Radiologist: Ignacio Elliott JR Proceduralist/Assist: Andreea William, RT(R)(), Radha Gutierrez RT(R)() Anesthesia: Conscious Sedation Plan of Activity Patient to Unit: PACU Patient Condition: Good See PACS Report for procedural detail/treatment Central Venous Access Device Procedure 1 Right Internal Jugular Hemodialysis Catheter Tunneled Placement dual lumen [place]: 15 Findings: Permcath in good position and functions well. OK to use. Plan Remove sutures in 2-3 weeks. Jr. Earl,Ignacio Liu MD Feb 21, 2017 17:33
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
--- NOTE | 2017-02-21 19:47 | EKG ---
Date Performed: 02/20/2017 Time Performed: 19:38:59 PTAGE: 81 years EKG: Sinus rhythm RIGHT BUNDLE BRANCH BLOCK LEFT ANTERIOR FASCICULAR BLOCK ABNORMAL ECG PREVIOUS TRACING : 01/02/2017 19.35 Compared to prior tracing no significant change DOCTOR: Tommy Astorga Interpretating Date/Time 02/21/2017 19:46:41
[2017-02-21] MEDS: INSULIN DETEMIR 100 UNITS/ML VIAL SQ SCH (23:34)
[2017-02-22] VITALS (8 sets, daily range): BP systolic 118–162; BP diastolic 66–86; PULSE 56–91; RESP 18–22; TEMP 96–97.9; O2SAT 94–100
[2017-02-22] MEDS: hydrALAZINE HCL 25 MG TAB PO SCH ×3 (06:00→22:21)
[2017-02-22 07:24] LABS: BASOPHIL # 0.1 TH/MM3 (0-0.2); BASOPHIL % 0.9 % (0.0-2.0); EOSINOPHIL # 0.4 TH/MM3 (0-0.4); EOSINOPHIL % 5.2 % (0.0-4.0); HEMATOCRIT 30.7 % (39.0-51.0); LYMPHOCYTE # 0.8 TH/MM3 (1.0-4.8); MEAN CELL VOLUME 84.9 FL (80.0-100.0); MEAN CORPUSCULAR HEMOGLOBIN 27.1 PG (27.0-34.0); MEAN CORPUSCULAR HGB CONC 31.9 % (32.0-36.0); NEUT % 77.9 % (16.0-70.0); PLATELET COUNT 258 TH/MM3 (150-450); RED BLOOD COUNT 3.62 MIL/MM3 (4.50-5.90); RED CELL DISTRIBUTION WIDTH 15.8 % (11.6-17.2); WHITE BLOOD COUNT 7.7 TH/MM3 (4.0-11.0)
[2017-02-22 07:40] LABS: HEMO FLAGS AUTO DIFF
[2017-02-22 07:42] LABS: ANION GAP 10 MEQ/L (5-15); BICARBONATE 20.2 MEQ/L (21.0-32.0); BLOOD UREA NITROGEN 86 MG/DL (7-18); CHLORIDE 109 MEQ/L (98-107); GLOMERULAR FILTRATION RATE 9 ML/MIN (>89); POTASSIUM 4.8 MEQ/L (3.5-5.1); SODIUM (NA) 139 MEQ/L (136-145); TRANSFERRIN IRON PROFILE 148 MG/DL (200-360)
[2017-02-22] MEDS: SODIUM CHLORIDE 0.9% FLUSH 10 ML FLUSH IV FLUSH SCH ×2 (08:16→22:22)
[2017-02-22] MEDS: LISINOPRIL 20 MG TAB PO SCH (08:16)
[2017-02-22] MEDS: BUMETANIDE 1 MG TAB PO SCH ×2 (08:16→22:22)
[2017-02-22 09:45] LABS: BANDS 3 % (0-6); BASOPHILS 3 % (0-2); EOSINOPHILS 3 % (0-4); MYELOCYTES 2 % (0-0); NEUTROPHIL # MANUAL DIFF 6.2 TH/MM3 (1.8-7.7); POLYS (SEG NEUTROPHILS) 75 % (16-70); WBC DIFF SAMPLE 100
[2017-02-22 09:46] LABS: OVALOCYTES 1+ (NORMAL); PLATELET ESTIMATE SMEAR NORMAL (NORMAL); PLATELET MORPHOLOGY NORMAL (NORMAL)
[2017-02-22 09:47] LABS: SCAN/DIFF FINAL DIFF MANUAL
--- NOTE | 2017-02-22 11:06 | HHI.PR ---
Subjective Remarks Patient seen at bedside. Denies and CP or SOB. Pitting edema improving. Objective Vital Signs Date Time Temp Pulse Resp B/P (MAP) Pulse Ox O2 Delivery O2 Flow Rate FiO2 02/22/17 08:00 96.8 56 22 118/66 (83) 98 02/22/17 05:30 96.0 87 18 136/78 (97) 100 02/22/17 00:00 96.7 90 18 142/77 (98) 100 02/21/17 20:52 97 02/21/17 20:00 95.8 67 16 152/76 (101) 99 02/21/17 19:45 62 15 146/65 (92) 95 Room Air 02/21/17 19:30 63 14 153/69 (97) 97 Room Air 02/21/17 19:15 66 14 136/63 (87) 96 Room Air 02/21/17 19:00 75 14 119/53 (75) 96 Room Air 02/21/17 18:45 62 14 137/66 (89) 95 Room Air 02/21/17 18:30 68 12 124/60 (81) 96 Room Air 02/21/17 18:15 73 12 158/63 (94) 97 02/21/17 18:00 76 14 130/63 (85) 95 Room Air 02/21/17 17:48 98.1 79 15 129/60 (83) 95 Room Air 02/21/17 14:19 98 21 02/21/17 12:32 96.0 72 16 138/83 (101) 100 02/21/17 12:00 80 I/O 02/21/17 02/21/17 02/21/17 02/22/17 02/22/17 02/22/17 06:59 14:59 22:59 06:59 14:59 22:59 Intake Total 240 ml 0 ml 240 ml Balance 240 ml 0 ml 240 ml Intake Oral 240 ml 0 ml 240 ml # Voids 5 1 3 2 # Bowel Movements 4 Result Diagram: 02/22/17 0634 02/22/17 0634 Imaging Last 72 hours Impressions Catheter Placement X-Ray 02/21/17 0000 Signed Impressions: Service Date/Time: Tuesday, February 21, 2017 16:34 - CONCLUSION: Uncomplicated PermaCath placement as above. Ignacio Elliott Jr., MD Chest X-Ray 02/20/17 0000 Signed Impressions: Service Date/Time: Monday, February 20, 2017 19:49 - CONCLUSION: Underinflated examination with atelectasis at the lung bases. Otherwise, no acute finding is identified. Hamzah Greene MD Objective Remarks GENERAL: Alert and not oriented. SKIN: Warm and dry. HEAD: Normocephalic. EYES: No scleral icterus. No injection or drainage. NECK: Supple, trachea midline. No JVD or lymphadenopathy. CARDIOVASCULAR: Regular rate and rhythm without murmurs, gallops, or rubs. 3 + edema noted in lower extremity RESPIRATORY: Breath sounds equal bilaterally. No accessory muscle use. GASTROINTESTINAL: Abdomen soft, non-tender, nondistended. MUSCULOSKELETAL: No cyanosis. BACK: Nontender without obvious deformity. No CVA tenderness. Medications and IVs Current Medications Medications (Trade) Dose Ordered Sig/Maxi Route Start Time Stop Time Status Last Admin (NS Flush) 2 ml UNSCH PRN IV FLUSH 02/20/17 20:30 (NS Flush) 2 ml BID IV FLUSH 02/20/17 21:00 02/22/17 08:16 (Tylenol) 650 mg Q4H PRN PO 02/20/17 20:30 (Zofran Inj) 4 mg Q6H PRN IVP 02/20/17 20:30 (Tylenol) 650 mg Q4H PRN PO 02/20/17 20:30 (Bumetanide) 2 mg BID PO 02/20/17 21:00 02/21/17 23:27 (Apresoline) 25 mg Q8HR PO 02/20/17 22:00 02/21/17 23:27 (Levemir Inj) 5 units HS SQ 02/20/17 21:00 02/21/17 23:34 (Prinivil) 20 mg DAILY PO 02/21/17 09:00 02/21/17 09:14 (Ativan) 0.5 mg Q6H PRN PO 02/20/17 20:30 Vancomycin HCl 1000 mg/Sodium Chloride 250 ml @ 250 mls/hr ADJUSTMENT EXAMINER IV 02/21/17 10:30 02/25/17 10:29 (Pepcid Inj) 20 mg Q12H IV PUSH 02/21/17 12:00 02/21/17 23:28 (Vasotec Inj) 1.25 mg Q6H PRN IV PUSH 02/21/17 11:30 Sodium Chloride 1,000 ml @ 0 mls/hr Q0M PRN OTHER 02/21/17 13:21 (Heparin Inj) 8,000 units UNSCH PRN IVF 02/21/17 13:30 Sodium Chloride 1,000 ml @ 200 mls/hr Q5H PRN IV 02/21/17 13:21 Sodium Chloride 1,000 ml @ 0 mls/hr Q0M PRN OTHER 02/21/17 13:21 (Mannitol Inj) 12.5 gm UNSCH PRN IV 02/21/17 13:30 (Albumin 25% Inj) 25 gm UNSCH PRN IV 02/21/17 13:30 (NS Flush) 5 ml UNSCH PRN IV FLUSH 02/21/17 13:30 (Heparin Inj) UNSCH PRN .XX 02/21/17 13:30 (Gentamicin (Dialysis) Inj) 20 mg UNSCH PRN IV 02/21/17 13:30 (Zofran Inj) 4 mg UNSCH PRN IV 02/21/17 13:30 (Tylenol) 650 mg UNSCH PRN PO 02/21/17 13:30 (Benadryl) 25 mg UNSCH PRN PO 02/21/17 13:30 (Nitrostat Sl) 0.4 mg UNSCH PRN SL 02/21/17 13:30 (Catapres) 0.1 mg UNSCH PRN PO 02/21/17 13:30 (Epogen Inj) 10,000 units UNSCH PRN IV 02/21/17 13:30 (Gelfoam 12 Mm/7 Mm Top) 1 foam UNSCH PRN TOP 02/21/17 13:30 (NS Flush) UNSCH PRN IVF 02/21/17 17:30 (Heparin Inj) UNSCH PRN IV FLUSH 02/21/17 17:30 Assessment and Plan Problem List: (1) CKD (chronic kidney disease) stage 5, GFR less than 15 ml/min ICD Codes: N18.5 - Chronic kidney disease, stage 5 (2) Metabolic acidosis ICD Codes: E87.2 - Metabolic acidosis Status: Acute (3) Lower extremity edema ICD Codes: R60.0 - Localized edema Status: Acute (4) Anemia ICD Codes: D64.9 - Anemia, unspecified (5) Poorly controlled diabetes mellitus ICD Codes: E11.9 - Poorly controlled diabetes mellitus Status: Acute (6) Hypertension ICD Codes: I10 - Hypertension Status: Acute (7) Frequent loose stools ICD Codes: R19.7 - Diarrhea, unspecified (8) Wound of sacral region ICD Codes: S31.000A - Unspecified open wound of lower back and pelvis without penetration into retroperitoneum, initial encounter Assessment and Plan 02/21/17 CKD stage 5- Creat 6.1 and BUN of 89 progressive renal failure. Nephrology consulted. Was sent to the hospital from [facility] for worsening renal indices and increased edema. Per note had AVF planned this month. He is NPO for perma cath today with dialysis planned for tomorrow and then MWF. Dr. Westbrook consulted. for possible surgery for AVF this admission. He will do outpatient HD at [facility], they are aware and arrangements are in process Edema 3 + pitting edema in lower extremity. On Bumex HTN B/P elevated at 175/80. On lisinopril and hydralazine. Will order PRN vasotec and monitor Diabetes BS AC and HS on long acting insulin and SS. Will monitor BS well controlled Anemia HGB 9.8 today. On epogen and iron profile ordered per nephrology. Wound sacral region Wound care ordered. Frequent loose stools C Diff ordered. 02/22/17 CKD- VAS cath placed. Plan for dialysis today and tomorrow. HTN B/P improved. On lisinopril and hydralazine. PRN vasotec and monitor Diabetes BS AC and HS BS 65-106 long acting insulin discontinued Anemia HGB stable at 9.8 today. On epogen Wound sacral region Wound care ordered. Labs in AM I and the ATHLETE MARKETING AGENT have both examined this patient and reviewed this note and I agree with these findings and plan of care. Martita Gonzalez. [facility] Feb 22, 2017 11:05
[2017-02-22] MEDS: HEPARIN SODIUM - IV 10,000 UNITS/10 ML VIAL PRN (16:10)
[2017-02-22] MEDS: GENTAMICIN SULFATE (DIALYSIS USE ONLY) 20 MG/2 ML VIAL IV PRN (16:10)
--- NOTE | 2017-02-22 16:45 | HHI.NPPN ---
Subjective General Problems: Anemia Renal Failure: End Stage Renal Disease History of Present Illness 81 y/o [id number] male who was admitted for progressive renal failure. He was in the early stages of dialysis planning and fistula creation. We have seen him during the previous admission, with follow up appointment planned for the next few weeks. We received a call about his lab work with his creatinine over 6, GFR below 10. The staff at [facility] reported edema, shortness of breath, therefore we advised to have him admitted for evaluation. PMH of HTN, DM II, hyperlipidemia, he is noncompliant in the past with medications. We were consulted for renal management. Additional Remarks Patient seen during HD, not in distress, complain of scrotal pain. Objective Data Data 02/22/17 02/23/17 19:00 07:00 Output Total 2000 ml Balance -2000 ml Hemodialysis 2000 ml Vital Signs Date Time Temp Pulse Resp B/P (MAP) Pulse Ox O2 Delivery O2 Flow Rate FiO2 02/22/17 12:32 97.9 76 18 119/69 (86) 98 02/22/17 08:00 96.8 56 22 118/66 (83) 98 02/22/17 05:30 96.0 87 18 136/78 (97) 100 02/22/17 00:00 96.7 90 18 142/77 (98) 100 02/21/17 20:52 97 02/21/17 20:00 95.8 67 16 152/76 (101) 99 02/21/17 19:45 62 15 146/65 (92) 95 Room Air 02/21/17 19:30 63 14 153/69 (97) 97 Room Air 02/21/17 19:15 66 14 136/63 (87) 96 Room Air 02/21/17 19:00 75 14 119/53 (75) 96 Room Air 02/21/17 18:45 62 14 137/66 (89) 95 Room Air 02/21/17 18:30 68 12 124/60 (81) 96 Room Air 02/21/17 18:15 73 12 158/63 (94) 97 02/21/17 18:00 76 14 130/63 (85) 95 Room Air 02/21/17 17:48 98.1 79 15 129/60 (83) 95 Room Air -: 02/22/17 0634 02/22/17 0634 Physical Exam General Appearance: No Acute Distress, Comfortable Eyes Eye Exam: Pupils Equal Pulmonary Resp Exam: Breath Sounds Equal, No Distress, Rhonchi, Decreased Bases Cardiology CV Exam: Regular, Normal Sinus Rhythm Gastrointestinal/Abdomen GI Exam: Soft, Non-Tender, Bowel Sounds Present, Distended Extremeties Extremities Exam: Moderate Edema, Pitting Edema Neurologic Neuro Exam: Alert, Oriented Psychiatric Psych Exam: Appropriate Responses Assessment/Plan Assessment Summary: Anemia of CKD, End Stage Renal Disease Problem List: (1) CKD (chronic kidney disease) stage 5, GFR less than 15 ml/min ICD Codes: N18.5 - Chronic kidney disease, stage 5 Plan: progressive renal failure, needs renal replacement therapy he has been evaluated by Dr. Westbrook outpatient, had surgery for AVF planned this month we will consult him to possibly proceed with surgery this admission he is NPO for PermCath today HD today and Sunday, then MWF, orders have been entered avoid IVF check phosphorus level and initiate binder therapy if needed He will do outpatient HD at [facility], they are aware and arrangements are in process. Iron sat. is low, check Ferritin. (2) Lower extremity edema ICD Codes: R60.0 - Localized edema Status: Acute Plan: may have an element of venous insufficiency continue bumex, may reduce dosage after starting dialysis (3) Metabolic acidosis ICD Codes: E87.2 - Metabolic acidosis Status: Acute Plan: should improve with hemodialysis monitor (4) Poorly controlled diabetes mellitus ICD Codes: E11.9 - Poorly controlled diabetes mellitus Status: Acute Plan: continue insulin therapy follow glucose (5) Anemia ICD Codes: D64.9 - Anemia, unspecified Plan: begin epogen with dialysis check iron profile Siddhartha Metcalf MD Feb 22, 2017 16:45
[2017-02-22] MEDS: FAMOTIDINE 20 MG/2 ML VIAL IV PUSH SCH (23:35)
[2017-02-23] VITALS (7 sets, daily range): BP systolic 117–155; BP diastolic 68–80; PULSE 67–97; RESP 18; TEMP 97.2–98.1; O2SAT 95–98
[2017-02-23] MEDS: hydrALAZINE HCL 25 MG TAB PO SCH ×3 (06:09→23:17)
[2017-02-23 08:24] LABS: AUTOMATED NEUTROPHIL # 5.2 TH/MM3 (1.8-7.7); BASOPHIL # 0.1 TH/MM3 (0-0.2); BASOPHIL % 0.8 % (0.0-2.0); EOSINOPHIL # 0.4 TH/MM3 (0-0.4); EOSINOPHIL % 5.6 % (0.0-4.0); HEMATOCRIT 29.5 % (39.0-51.0); HEMO FLAGS DIFF FINAL; LYMPH % 12.6 % (9.0-44.0); LYMPHOCYTE # 0.9 TH/MM3 (1.0-4.8); MEAN CORPUSCULAR HEMOGLOBIN 26.9 PG (27.0-34.0); MEAN CORPUSCULAR HGB CONC 32.4 % (32.0-36.0); MONO % 8.6 % (0.0-8.0); NEUT % 72.4 % (16.0-70.0); PLATELET COUNT 270 TH/MM3 (150-450); RED BLOOD COUNT 3.55 MIL/MM3 (4.50-5.90); RED CELL DISTRIBUTION WIDTH 15.4 % (11.6-17.2); WHITE BLOOD COUNT 7.1 TH/MM3 (4.0-11.0)
[2017-02-23] MEDS: BUMETANIDE 1 MG TAB PO SCH ×2 (09:00→23:18)
[2017-02-23] MEDS: LISINOPRIL 20 MG TAB PO SCH (09:00)
[2017-02-23 09:12] LABS: BICARBONATE 25.3 MEQ/L (21.0-32.0)
--- NOTE | 2017-02-23 11:18 | HHI.PR ---
Subjective Remarks Patient seen at bedside. Denies and CP or SOB. Pitting edema improving. Dialysis yesterday and also scheduled for today. Objective Vital Signs Date Time Temp Pulse Resp B/P (MAP) Pulse Ox O2 Delivery O2 Flow Rate FiO2 02/23/17 08:00 97.8 74 18 131/70 (90) 98 02/23/17 04:00 97.3 97 18 117/80 (92) 95 02/23/17 00:09 69 02/23/17 00:00 97.8 82 18 118/72 (87) 95 02/22/17 21:53 94 21 02/22/17 20:32 96.6 87 18 162/86 (111) 94 02/22/17 20:16 91 02/22/17 18:00 97.7 81 18 160/80 (106) 99 02/22/17 12:32 97.9 76 18 119/69 (86) 98 I/O 02/22/17 02/22/17 02/22/17 02/23/17 02/23/17 02/23/17 07:00 15:00 23:00 07:00 15:00 23:00 Intake Total 600 ml Output Total 2000 ml Balance -1400 ml Intake Oral 600 ml Hemodialysis 2000 ml # Voids 2 3 1 Result Diagram: 02/23/1780202/23/17 08 Objective Remarks GENERAL: Alert and not oriented. SKIN: Warm and dry. HEAD: Normocephalic. EYES: No scleral icterus. No injection or drainage. NECK: Supple, trachea midline. No JVD or lymphadenopathy. CARDIOVASCULAR: Regular rate and rhythm without murmurs, gallops, or rubs. 3 + edema noted in lower extremity RESPIRATORY: Breath sounds equal bilaterally. No accessory muscle use. GASTROINTESTINAL: Abdomen soft, non-tender, nondistended. MUSCULOSKELETAL: No cyanosis. BACK: Nontender without obvious deformity. No CVA tenderness. Medications and IVs Current Medications Medications (Trade) Dose Ordered Sig/Maxi Route Start Time Stop Time Status Last Admin (NS Flush) 2 ml UNSCH PRN IV FLUSH 02/20/17 20:30 (NS Flush) 2 ml BID IV FLUSH 02/20/17 21:00 02/22/17 22:22 (Tylenol) 650 mg Q4H PRN PO 02/20/17 20:30 (Zofran Inj) 4 mg Q6H PRN IVP 02/20/17 20:30 (Tylenol) 650 mg Q4H PRN PO 02/20/17 20:30 (Bumetanide) 2 mg BID PO 02/20/17 21:00 02/22/17 22:22 (Apresoline) 25 mg Q8HR PO 02/20/17 22:00 02/23/17 06:09 (Prinivil) 20 mg DAILY PO 02/21/17 09:00 02/21/17 09:14 (Ativan) 0.5 mg Q6H PRN PO 02/20/17 20:30 Vancomycin HCl 1000 mg/Sodium Chloride 250 ml @ 250 mls/hr PROP AND EFFECTS DESIGNER IV 02/21/17 10:30 02/25/17 10:29 (Vasotec Inj) 1.25 mg Q6H PRN IV PUSH 02/21/17 11:30 Sodium Chloride 1,000 ml @ 0 mls/hr Q0M PRN OTHER 02/21/17 13:21 02/22/17 16:10 (Heparin Inj) 8,000 units UNSCH PRN IVF 02/21/17 13:30 Sodium Chloride 1,000 ml @ 200 mls/hr Q5H PRN IV 02/21/17 13:21 Sodium Chloride 1,000 ml @ 0 mls/hr Q0M PRN OTHER 02/21/17 13:21 (Mannitol Inj) 12.5 gm UNSCH PRN IV 02/21/17 13:30 (Albumin 25% Inj) 25 gm UNSCH PRN IV 02/21/17 13:30 (NS Flush) 5 ml UNSCH PRN IV FLUSH 02/21/17 13:30 (Heparin Inj) UNSCH PRN .XX 02/21/17 13:30 02/22/17 16:10 (Gentamicin (Dialysis) Inj) 20 mg UNSCH PRN IV 02/21/17 13:30 02/22/17 16:10 (Zofran Inj) 4 mg UNSCH PRN IV 02/21/17 13:30 (Tylenol) 650 mg UNSCH PRN PO 02/21/17 13:30 (Benadryl) 25 mg UNSCH PRN PO 02/21/17 13:30 (Nitrostat Sl) 0.4 mg UNSCH PRN SL 02/21/17 13:30 (Catapres) 0.1 mg UNSCH PRN PO 02/21/17 13:30 (Epogen Inj) 10,000 units UNSCH PRN IV 02/21/17 13:30 (Gelfoam 12 Mm/7 Mm Top) 1 foam UNSCH PRN TOP 02/21/17 13:30 (NS Flush) UNSCH PRN IVF 02/21/17 17:30 (Heparin Inj) UNSCH PRN IV FLUSH 02/21/17 17:30 (Pepcid Inj) 10 mg Q12H IV PUSH 02/23/17 00:00 02/22/17 23:35 Assessment and Plan Problem List: (1) CKD (chronic kidney disease) stage 5, GFR less than 15 ml/min ICD Codes: N18.5 - Chronic kidney disease, stage 5 (2) Metabolic acidosis ICD Codes: E87.2 - Metabolic acidosis Status: Acute (3) Lower extremity edema ICD Codes: R60.0 - Localized edema Status: Acute (4) Anemia ICD Codes: D64.9 - Anemia, unspecified (5) Poorly controlled diabetes mellitus ICD Codes: E11.9 - Poorly controlled diabetes mellitus Status: Acute (6) Hypertension ICD Codes: I10 - Hypertension Status: Acute (7) Frequent loose stools ICD Codes: R19.7 - Diarrhea, unspecified (8) Wound of sacral region ICD Codes: S31.000A - Unspecified open wound of lower back and pelvis without penetration into retroperitoneum, initial encounter Assessment and Plan 02/21/17 CKD stage 5- Creat 6.1 and BUN of 89 progressive renal failure. Nephrology consulted. Was sent to the hospital from [facility] rehab for worsening renal indices and increased edema. Per note had AVF planned this month. He is NPO for perma cath today with dialysis planned for tomorrow and then MWF. Dr. Westbrook consulted. for possible surgery for AVF this admission. He will do outpatient HD at [facility], they are aware and arrangements are in process Edema 3 + pitting edema in lower extremity. On Bumex HTN B/P elevated at 175/80. On lisinopril and hydralazine. Will order PRN vasotec and monitor Diabetes BS AC and HS on long acting insulin and SS. Will monitor BS well controlled Anemia HGB 9.8 today. On epogen and iron profile ordered per nephrology. Wound sacral region Wound care ordered. Frequent loose stools C Diff ordered. 02/22/17 CKD- VAS cath placed. Plan for dialysis today and tomorrow. HTN B/P improved. On lisinopril and hydralazine. PRN vasotec and monitor Diabetes BS AC and HS BS 65-106 long acting insulin discontinued Anemia HGB stable at 9.8 today. On epogen Wound sacral region Wound care ordered. 02/23/17 CKD- VAS cath in place dialysis scheduled # 2 for today. HTN B/P improved at 131/70 Continue current regimen. PRN vasotec and monitor Diabetes BS AC and HS BS overnight well controlled at 95-106 Anemia HGB stable at 9.6 today. On epogen Labs in AM Anticipate discharge on Sunday I and the ELECTRIC METER INSTALLER HELPER have both examined this patient and reviewed this note and I agree with these findings and plan of care. Martita Gonzalez. ELECTRIC METER INSTALLER HELPER Feb 23, 2017 11:18
[2017-02-23] MEDS: FAMOTIDINE 20 MG/2 ML VIAL IV PUSH SCH ×2 (12:03→23:19)
[2017-02-23] MEDS: SODIUM CHLORIDE 0.9% FLUSH 10 ML FLUSH IV FLUSH SCH ×2 (12:04→23:18)
--- NOTE | 2017-02-23 15:44 | HHI.NPPN ---
Subjective General Problems: Anemia Renal Failure: End Stage Renal Disease History of Present Illness 81 y/o [id number] male who was admitted for progressive renal failure. He was in the early stages of dialysis planning and fistula creation. We have seen him during the previous admission, with follow up appointment planned for the next few weeks. We received a call about his lab work with his creatinine over 6, GFR below 10. The staff at [facility] reported edema, shortness of breath, therefore we advised to have him admitted for evaluation. PMH of HTN, DM II, hyperlipidemia, he is noncompliant in the past with medications. We were consulted for renal management. Additional Remarks Patient is alert, remain non oliguric, complain of dysuria. Objective Data Data Vital Signs Date Time Temp Pulse Resp B/P (MAP) Pulse Ox O2 Delivery O2 Flow Rate FiO2 02/23/17 12:43 97 21 02/23/17 12:32 98.1 80 18 122/68 (86) 97 02/23/17 08:00 97.8 74 18 131/70 (90) 98 02/23/17 04:00 97.3 97 18 117/80 (92) 95 02/23/17 00:09 69 02/23/17 00:00 97.8 82 18 118/72 (87) 95 02/22/17 21:53 94 21 02/22/17 20:32 96.6 87 18 162/86 (111) 94 02/22/17 20:16 91 02/22/17 18:00 97.7 81 18 160/80 (106) 99 -: 02/23/17 0803 02/23/17 0803 Physical Exam General Appearance: No Acute Distress, Comfortable Eyes Eye Exam: Pupils Equal Pulmonary Resp Exam: Breath Sounds Equal, No Distress, Rhonchi, Decreased Bases Cardiology CV Exam: Regular, Normal Sinus Rhythm Gastrointestinal/Abdomen GI Exam: Soft, Non-Tender, Bowel Sounds Present, Distended Extremeties Extremities Exam: Moderate Edema, Pitting Edema Neurologic Neuro Exam: Alert, Oriented Psychiatric Psych Exam: Appropriate Responses Assessment/Plan Assessment Summary: Anemia of CKD, End Stage Renal Disease Problem List: (1) CKD (chronic kidney disease) stage 5, GFR less than 15 ml/min ICD Codes: N18.5 - Chronic kidney disease, stage 5 Plan: progressive renal failure, needs renal replacement therapy he has been evaluated by Dr. Westbrook outpatient, had surgery for AVF planned this month we will consult him to possibly proceed with surgery this admission he is NPO for PermCath today HD MWF, orders have been entered avoid IVF check phosphorus level and initiate binder therapy if needed He will do outpatient HD at [facility], they are aware and arrangements are in process. HD in AM, Dr. De Dios will follow over the weekend and Dr. Poon from Sunday. (2) Lower extremity edema ICD Codes: R60.0 - Localized edema Status: Acute Plan: may have an element of venous insufficiency continue bumex, may reduce dosage after starting dialysis (3) Metabolic acidosis ICD Codes: E87.2 - Metabolic acidosis Status: Acute Plan: should improve with hemodialysis monitor (4) Poorly controlled diabetes mellitus ICD Codes: E11.9 - Poorly controlled diabetes mellitus Status: Acute Plan: continue insulin therapy follow glucose (5) Anemia ICD Codes: D64.9 - Anemia, unspecified Plan: begin epogen with dialysis check iron profile Siddhartha Metcalf MD Feb 23, 2017 15:44
[2017-02-23] MEDS: GENTAMICIN SULFATE (DIALYSIS USE ONLY) 20 MG/2 ML VIAL IV PRN (20:56)
[2017-02-23] MEDS: EPOETIN ALFA 10,000 UNITS/ML VIAL IV PRN (20:56)
[2017-02-23] MEDS: HEPARIN SODIUM - IV 10,000 UNITS/10 ML VIAL PRN (20:57)
[2017-02-24] VITALS (8 sets, daily range): BP systolic 115–147; BP diastolic 55–87; PULSE 62–97; RESP 18–20; TEMP 95.7–98.6; O2SAT 97–100
[2017-02-24] MEDS: hydrALAZINE HCL 25 MG TAB PO SCH ×3 (05:56→22:46)
[2017-02-24 08:07] LABS: AUTOMATED NEUTROPHIL # 4.8 TH/MM3 (1.8-7.7); BASOPHIL % 0.6 % (0.0-2.0); EOSINOPHIL # 0.4 TH/MM3 (0-0.4); EOSINOPHIL % 6.3 % (0.0-4.0); HEMO FLAGS DIFF FINAL; LYMPH % 14.5 % (9.0-44.0); MEAN CELL VOLUME 83.6 FL (80.0-100.0); MEAN CORPUSCULAR HEMOGLOBIN 27.1 PG (27.0-34.0); MEAN CORPUSCULAR HGB CONC 32.4 % (32.0-36.0); MONO % 9.8 % (0.0-8.0); NEUT % 68.8 % (16.0-70.0); PLATELET COUNT 247 TH/MM3 (150-450); RED BLOOD COUNT 3.59 MIL/MM3 (4.50-5.90); RED CELL DISTRIBUTION WIDTH 15.3 % (11.6-17.2); WHITE BLOOD COUNT 6.9 TH/MM3 (4.0-11.0)
[2017-02-24 08:36] LABS: BICARBONATE 27.9 MEQ/L (21.0-32.0); POTASSIUM 3.4 MEQ/L (3.5-5.1)
[2017-02-24] MEDS: SODIUM CHLORIDE 0.9% FLUSH 10 ML FLUSH IV FLUSH SCH ×2 (09:28→22:47)
[2017-02-24] MEDS: BUMETANIDE 1 MG TAB PO SCH ×2 (09:28→22:47)
[2017-02-24] MEDS: LISINOPRIL 20 MG TAB PO SCH (09:28)
--- NOTE | 2017-02-24 11:37 | HHI.NPPN ---
Subjective General Problems: Anemia Renal Failure: End Stage Renal Disease History of Present Illness 81 y/o male who was admitted for progressive renal failure. He was in the early stages of dialysis planning and fistula creation. We have seen him during the previous admission, with follow up appointment planned for the next few weeks. We received a call about his lab work with his creatinine over 6, GFR below 10. The staff at [facility] reported edema, shortness of breath, therefore we advised to have him admitted for evaluation. PMH of HTN, DM II, hyperlipidemia, he is noncompliant in the past with medications. We were consulted for renal management. Additional Remarks Patient is alert, remain non oliguric, complain of dysuria. Objective Data Data Vital Signs Date Time Temp Pulse Resp B/P (MAP) Pulse Ox O2 Delivery O2 Flow Rate FiO2 02/24/17 08:00 95.7 69 135/65 (88) 97 02/24/17 04:32 97.3 97 18 128/87 (101) 100 02/24/17 00:54 71 02/24/17 00:00 98.1 81 18 115/55 (75) 98 02/23/17 16:00 97.2 67 18 155/68 (97) 96 02/23/17 12:43 97 21 02/23/17 12:32 98.1 80 18 122/68 (86) 97 -: 02/24/17 0734 02/24/17 0734 Physical Exam General Appearance: No Acute Distress, Comfortable Eyes Eye Exam: Pupils Equal Pulmonary Resp Exam: Breath Sounds Equal, No Distress, Rhonchi, Decreased Bases Cardiology CV Exam: Regular, Normal Sinus Rhythm Gastrointestinal/Abdomen GI Exam: Soft, Non-Tender, Bowel Sounds Present, Distended Extremeties Extremities Exam: Moderate Edema, Pitting Edema Neurologic Neuro Exam: Alert, Oriented Psychiatric Psych Exam: Appropriate Responses Assessment/Plan Assessment Summary: Anemia of CKD, End Stage Renal Disease Problem List: (1) CKD (chronic kidney disease) stage 5, GFR less than 15 ml/min ICD Codes: N18.5 - Chronic kidney disease, stage 5 Plan: progressive renal failure, needs renal replacement therapy he has been evaluated by Dr. Westbrook outpatient, had surgery for AVF planned this month we will consult him to possibly proceed with surgery this admission PermCath HD MWF, orders have been entered avoid IVF He will do outpatient HD at [facility], they are aware and arrangements are in process. HD YESTERDAY 2 L (2) Lower extremity edema ICD Codes: R60.0 - Localized edema Status: Acute Plan: may have an element of venous insufficiency continue bumex, may reduce dosage after starting dialysis (3) Metabolic acidosis ICD Codes: E87.2 - Metabolic acidosis Status: Acute Plan: should improve with hemodialysis monitor (4) Poorly controlled diabetes mellitus ICD Codes: E11.9 - Poorly controlled diabetes mellitus Status: Acute Plan: continue insulin therapy follow glucose (5) Anemia ICD Codes: D64.9 - Anemia, unspecified Plan: begin epogen with dialysis check iron profile Zenaida De Dios MD Feb 24, 2017 11:37
[2017-02-24] MEDS: FAMOTIDINE 20 MG/2 ML VIAL IV PUSH SCH ×2 (13:48→22:47)
--- NOTE | 2017-02-24 17:17 | HHI.PR ---
Subjective Remarks resting quietly feeling better Objective Vital Signs Date Time Temp Pulse Resp B/P (MAP) Pulse Ox O2 Delivery O2 Flow Rate FiO2 02/24/17 12:00 98.6 67 20 140/72 (94) 98 02/24/17 08:00 73 02/24/17 08:00 95.7 69 135/65 (88) 97 02/24/17 04:32 97.3 97 18 128/87 (101) 100 02/24/17 00:54 71 02/24/17 00:00 98.1 81 18 115/55 (75) 98 I/O 02/23/17 02/23/17 02/23/17 02/24/17 02/24/17 02/24/17 07:00 15:00 23:00 07:00 15:00 23:00 Intake Total 720 ml 480 ml Output Total 2000 ml Balance -1280 ml 480 ml Intake Oral 720 ml 480 ml Hemodialysis 2000 ml # Voids 1 1 2 1 # Bowel Movements 1 1 Result Diagram: 02/24/17 0734 02/24/17 0734 Objective Remarks GENERAL: Well-nourished, well-developed patient. SKIN: Warm and dry. HEAD: Normocephalic. EYES: No scleral icterus. No injection or drainage. NECK: Supple, trachea midline. No JVD or lymphadenopathy. CARDIOVASCULAR: Regular rate and rhythm without murmurs, gallops, or rubs. RESPIRATORY: Breath sounds equal bilaterally. No accessory muscle use. GASTROINTESTINAL: Abdomen soft, non-tender, nondistended. EXTREMITIES: No cyanosis, or edema. NEUROLOGICAL: Awake, alert mildly confused Non-focal. Medications and IVs Inpatient Medications Acetaminophen (Tylenol) 650 mg UNSCH PRN PO for headach, pain, temp > 101F; Start 02/21/17 at 13:30 Albumin Human (Albumin 25% Inj) 25 gm UNSCH PRN IV WITH DIALYSIS; Start at 13:30 Bumetanide (Bumetanide) 2 mg BID PO Last administered on 02/24/17t 09:28; Start 02/20/17 at 21:00 Clonidine (Catapres) 0.1 mg UNSCH PRN PO for BP > 180/100 X 2 readings; Start 02/21/17 at 13:30 Diphenhydramine HCl (Benadryl) 25 mg UNSCH PRN PO for hives/itching/anaphylaxis ; Start 02/21/17 at 13:30 Enalaprilat (Vasotec Inj) 1.25 mg Q6H PRN IV PUSH SBP>160, DBP>90; Start 02/21 at 11:30 Epoetin Gildardo (Epogen Inj) 10,000 units UNSCH PRN IV WITH DIALYSIS Last administered on 02/23/17 20:56; Start 02/21/17 at 13:30 Famotidine (Pepcid Inj) 10 mg Q12H IV PUSH Last administered on 02/24/17 13:48 ; Start 02/23/17 at 00:00 Gelatin (Gelfoam 12 Mm/7 Mm Top) 1 foam UNSCH PRN TOP SEE LABEL COMMENTS; Start 02/21/17 at 13:30 Gentamicin Sulfate (Gentamicin (Dialysis) Inj) 20 mg UNSCH PRN IV WITH DIALYSIS Last administered on 02/23/17 20:56; Start 02/21/17 at 13:30 Heparin Sodium (Porcine) (Heparin Inj) UNSCH PRN IV FLUSH SEE PROTOCOL; Start 02/21/17 at 17:30 Hydralazine HCl (Apresoline) 25 mg Q8HR PO Last administered on 02/24/17 13:48 ; Start 02/20/17 at 22:00 Insulin Detemir (Levemir Inj) 5 units HS SQ Last administered on 02/21/17 23: 34; Start 02/20/17 at 21:00; Stop 02/22/17 at 11:03; Status DC Lisinopril (Prinivil) 20 mg DAILY PO Last administered on 02/24/17 09:28; Start 02/21/17 at 09:00 Lorazepam (Ativan) 0.5 mg Q6H PRN PO ANXIETY; Start 02/20/17 at 20:30 Magnesium Hydroxide (Milk Of Magnesia Liq) 30 ml ONCE PO ; Start 02/20/17 at 20: 30; Stop 02/20/17 at 23:59; Status DC Mannitol (Mannitol Inj) 12.5 gm UNSCH PRN IV WITH DIALYSIS; Start 02/21/17 at 13:30 Nitroglycerin (Nitrostat Sl) 0.4 mg UNSCH PRN SL CHEST PAIN; Start 02/21/17 at 13:30 Ondansetron HCl (Zofran Inj) 4 mg UNSCH PRN IV WITH DIALYSIS; Start 02/21/17 at 13:30 Sodium Chloride (NS Flush) UNSCH PRN IVF SEE PROTOCOL; Start 02/21/17 at 17:30 Vancomycin HCl 1000 mg/Sodium Chloride 250 ml @ 250 mls/hr MECHANICAL STRIPER IV ; Start 02/21/17 at 10:30; Stop 02/25/17 at 10:29 Assessment and Plan Problem List: (1) Bilateral lower leg cellulitis ICD Codes: L03.116 - Cellulitis of left lower limb; L03.115 - Cellulitis of right lower limb Status: Acute (2) Poorly controlled diabetes mellitus ICD Codes: E11.9 - Poorly controlled diabetes mellitus Status: Acute (3) Hypertension ICD Codes: I10 - Hypertension Status: Acute Assessment and Plan on dialysis cellulitis resolved will discuss placement with case management Discussed Condition With patient he wishes Prabhjot Jiménez DO Feb 24, 2017 17:17
[2017-02-25] VITALS (10 sets, daily range): BP systolic 112–152; BP diastolic 37–76; PULSE 64–84; RESP 16–20; TEMP 96.4–99; O2SAT 94–98
[2017-02-25] MEDS: hydrALAZINE HCL 25 MG TAB PO SCH ×3 (05:10→20:26)
[2017-02-25 07:45] LABS: AUTOMATED NEUTROPHIL # 6.2 TH/MM3 (1.8-7.7); BASOPHIL # 0.1 TH/MM3 (0-0.2); BASOPHIL % 0.6 % (0.0-2.0); EOSINOPHIL # 0.6 TH/MM3 (0-0.4); EOSINOPHIL % 6.6 % (0.0-4.0); HEMATOCRIT 28.6 % (39.0-51.0); LYMPH % 13.5 % (9.0-44.0); LYMPHOCYTE # 1.2 TH/MM3 (1.0-4.8); MEAN CELL VOLUME 82.9 FL (80.0-100.0); MEAN CORPUSCULAR HGB CONC 33.8 % (32.0-36.0); MONO % 8.7 % (0.0-8.0); NEUT % 70.6 % (16.0-70.0); PLATELET COUNT 243 TH/MM3 (150-450); RED BLOOD COUNT 3.45 MIL/MM3 (4.50-5.90); RED CELL DISTRIBUTION WIDTH 15.3 % (11.6-17.2); WHITE BLOOD COUNT 8.7 TH/MM3 (4.0-11.0)
[2017-02-25 07:47] LABS: HEMO FLAGS AUTO DIFF
[2017-02-25 08:16] LABS: POTASSIUM 3.6 MEQ/L (3.5-5.1)
[2017-02-25 08:43] LABS: CALCIUM-PROTEIN CORRECTED 7.9 MG/DL (8.5-10.1)
[2017-02-25 08:49] LABS: PLATELET ESTIMATE SMEAR NORMAL (NORMAL); PLATELET MORPHOLOGY NORMAL (NORMAL); SCAN/DIFF AUTO DIFF CONFIRMED
[2017-02-25] MEDS: LISINOPRIL 20 MG TAB PO SCH (10:09)
[2017-02-25] MEDS: SODIUM CHLORIDE 0.9% FLUSH 10 ML FLUSH IV FLUSH SCH ×2 (10:09→20:26)
[2017-02-25] MEDS: BUMETANIDE 1 MG TAB PO SCH ×2 (10:10→20:25)
[2017-02-25] MEDS: FAMOTIDINE 20 MG/2 ML VIAL IV PUSH SCH (12:06)
--- NOTE | 2017-02-25 16:16 | HHI.NPPN ---
Subjective General Problems: Anemia Renal Failure: End Stage Renal Disease History of Present Illness 81 y/o male who was admitted for progressive renal failure. He was in the early stages of dialysis planning and fistula creation. We have seen him during the previous admission, with follow up appointment planned for the next few weeks. We received a call about his lab work with his creatinine over 6, GFR below 10. The staff at [facility] reported edema, shortness of breath, therefore we advised to have him admitted for evaluation. PMH of HTN, DM II, hyperlipidemia, he is noncompliant in the past with medications. We were consulted for renal management. Additional Remarks Patient is alert, remain non oliguric, complain of dysuria. Objective Data Data Vital Signs Date Time Temp Pulse Resp B/P (MAP) Pulse Ox O2 Delivery O2 Flow Rate FiO2 02/25/17 11:30 99.0 65 20 147/68 (94) 98 02/25/17 07:30 96.4 75 20 134/60 (84) 94 Automatic Cuff 02/25/17 04:00 97.4 67 18 112/37 (62) 97 02/25/17 04:00 97.4 67 20 112/37 (62) 98 02/25/17 00:00 97.8 64 20 140/68 (92) 97 02/24/17 23:53 69 02/24/17 20:00 97.6 73 20 133/64 (87) 98 02/24/17 17:00 97.6 62 20 147/75 (99) 99 -: 02/25/17 0709 02/25/17 0709 Physical Exam General Appearance: No Acute Distress, Comfortable Eyes Eye Exam: Pupils Equal Pulmonary Resp Exam: Breath Sounds Equal, No Distress, Rhonchi, Decreased Bases Cardiology CV Exam: Regular, Normal Sinus Rhythm Gastrointestinal/Abdomen GI Exam: Soft, Non-Tender, Bowel Sounds Present, Distended Extremeties Extremities Exam: Moderate Edema, Pitting Edema Neurologic Neuro Exam: Alert, Oriented Psychiatric Psych Exam: Appropriate Responses Assessment/Plan Assessment Summary: Anemia of CKD, End Stage Renal Disease Problem List: (1) CKD (chronic kidney disease) stage 5, GFR less than 15 ml/min ICD Codes: N18.5 - Chronic kidney disease, stage 5 Plan: progressive renal failure, needs renal replacement therapy he has been evaluated by Dr. Westbrook outpatient, had surgery for AVF planned this month we will consult him to possibly proceed with surgery this admission PermCath HD MWF, orders have been entered avoid IVF HD Sunday [address] Poon (2) Lower extremity edema ICD Codes: R60.0 - Localized edema Status: Acute Plan: may have an element of venous insufficiency continue bumex, may reduce dosage after starting dialysis (3) Metabolic acidosis ICD Codes: E87.2 - Metabolic acidosis Status: Acute Plan: should improve with hemodialysis monitor (4) Poorly controlled diabetes mellitus ICD Codes: E11.9 - Poorly controlled diabetes mellitus Status: Acute Plan: continue insulin therapy follow glucose (5) Anemia ICD Codes: D64.9 - Anemia, unspecified Plan: begin epogen with dialysis check iron profile Zenaida De Dios MD Feb 25, 2017 16:16
[2017-02-25 19:13] LABS: BLOOD, URINE TRACE (NEG); COMMENT (UR) CULTURE INDICATED; CULTURE IF INDICATED CULTURE INDICATED; GLUCOSE,URINE 150 mg/dL (NEG); KETONE, URINE NEG (NEG); NITRITE,URINE NEG (NEG); PH, URINE 7.5 (5.0-8.5); URINE COLOR LIGHT-YELLOW (YELLW/STRAW)
--- NOTE | 2017-02-25 19:16 | HHI.PR ---
Subjective Remarks resting quietly feeling better wishes to go home does not want to return to snf Objective Vital Signs Date Time Temp Pulse Resp B/P (MAP) Pulse Ox O2 Delivery O2 Flow Rate FiO2 02/25/17 15:47 76 02/25/17 15:30 97.9 73 20 152/76 (101) 98 02/25/17 12:20 67 02/25/17 11:30 99.0 65 20 147/68 (94) 98 02/25/17 08:52 74 02/25/17 07:30 96.4 75 20 134/60 (84) 94 Automatic Cuff 02/25/17 04:00 97.4 67 18 112/37 (62) 97 02/25/17 04:00 97.4 67 20 112/37 (62) 98 02/25/17 00:00 97.8 64 20 140/68 (92) 97 02/24/17 23:53 69 02/24/17 20:00 97.6 73 20 133/64 (87) 98 I/O 02/24/17 02/24/17 02/24/17 02/25/17 02/25/17 02/25/17 06:59 14:59 22:59 06:59 14:59 22:59 Intake Total 480 ml 320 ml 240 ml 480 ml Balance 480 ml 320 ml 240 ml 480 ml Intake Oral 480 ml 320 ml 240 ml 480 ml # Voids 2 1 1 2 8 # Bowel Movements 1 1 1 0 Result Diagram: 02/25/17 0709 02/25/17 0709 Objective Remarks GENERAL: Well-nourished, well-developed patient. SKIN: Warm and dry. HEAD: Normocephalic. EYES: No scleral icterus. No injection or drainage. NECK: Supple, trachea midline. No JVD or lymphadenopathy. CARDIOVASCULAR: Regular rate and rhythm without murmurs, gallops, or rubs. RESPIRATORY: Breath sounds equal bilaterally. No accessory muscle use. GASTROINTESTINAL: Abdomen soft, non-tender, nondistended. EXTREMITIES: No cyanosis, or edema.resolved as is erythema NEUROLOGICAL: Awake, alert mildly confused Non-focal. Medications and IVs Inpatient Medications Acetaminophen (Tylenol) 650 mg UNSCH PRN PO for headach, pain, temp > 101F; Start 02/21/17 at 13:30 Albumin Human (Albumin 25% Inj) 25 gm UNSCH PRN IV WITH DIALYSIS; Start at 13:30 Bumetanide (Bumetanide) 2 mg BID PO Last administered on 02/25/17 10:10; Start 02/20/17 at 21:00 Clonidine (Catapres) 0.1 mg UNSCH PRN PO for BP > 180/100 X 2 readings; Start 02/21/17 at 13:30 Diphenhydramine HCl (Benadryl) 25 mg UNSCH PRN PO for hives/itching/anaphylaxis ; Start 02/21/17 at 13:30 Enalaprilat (Vasotec Inj) 1.25 mg Q6H PRN IV PUSH SBP>160, DBP>90; Start 02/21 at 11:30 Epoetin Gildardo (Epogen Inj) 10,000 units UNSCH PRN IV WITH DIALYSIS Last administered on 02/23/17 20:56; Start 02/21/17 at 13:30 Famotidine (Pepcid Inj) 10 mg Q12H IV PUSH Last administered on 02/25/17 12:06 ; Start 02/23/17 at 00:00 Gelatin (Gelfoam 12 Mm/7 Mm Top) 1 foam UNSCH PRN TOP SEE LABEL COMMENTS; Start 02/21/17 at 13:30 Gentamicin Sulfate (Gentamicin (Dialysis) Inj) 20 mg UNSCH PRN IV WITH DIALYSIS Last administered on 02/23/17 20:56; Start 02/21/17 at 13:30 Heparin Sodium (Porcine) (Heparin Inj) UNSCH PRN IV FLUSH SEE PROTOCOL; Start 02/21/17 at 17:30 Hydralazine HCl (Apresoline) 25 mg Q8HR PO Last administered on 02/25/17 14:21 ; Start 02/20/17 at 22:00 Insulin Detemir (Levemir Inj) 5 units HS SQ Last administered on 02/21/17 23: 34; Start 02/20/17 at 21:00; Stop 02/22/17 at 11:03; Status DC Lisinopril (Prinivil) 20 mg DAILY PO Last administered on 02/25/17 10:09; Start 02/21/17 at 09:00 Lorazepam (Ativan) 0.5 mg Q6H PRN PO ANXIETY; Start 02/20/17 at 20:30 Magnesium Hydroxide (Milk Of Magnesia Liq) 30 ml ONCE PO ; Start 02/20/17 at 20: 30; Stop 02/20/17 at 23:59; Status DC Mannitol (Mannitol Inj) 12.5 gm UNSCH PRN IV WITH DIALYSIS; Start 02/21/17 at 13:30 Nitroglycerin (Nitrostat Sl) 0.4 mg UNSCH PRN SL CHEST PAIN; Start 02/21/17 at 13:30 Ondansetron HCl (Zofran Inj) 4 mg UNSCH PRN IV WITH DIALYSIS; Start 02/21/17 at 13:30 Sodium Chloride (NS Flush) UNSCH PRN IVF SEE PROTOCOL; Start 02/21/17 at 17:30 Vancomycin HCl 1000 mg/Sodium Chloride 250 ml @ 250 mls/hr PAVING FOREMAN IV ; Start 02/21/17 at 10:30; Stop 02/25/17 at 10:29; Status DC Assessment and Plan Problem List: (1) Bilateral lower leg cellulitis ICD Codes: L03.116 - Cellulitis of left lower limb; L03.115 - Cellulitis of right lower limb Status: Resolved (2) Poorly controlled diabetes mellitus ICD Codes: E11.9 - Poorly controlled diabetes mellitus Status: Resolved (3) Hypertension ICD Codes: I10 - Hypertension Status: Acute Assessment and Plan on dialysis cellulitis resolved will discuss placement with case management anemmia workup in progress Discharge Planning pt wishes home with home health this may not be practical will consult case management Prabhjot Ghotra DO Feb 25, 2017 19:16
[2017-02-26] VITALS (8 sets, daily range): BP systolic 118–155; BP diastolic 61–69; PULSE 65–81; RESP 16–20; TEMP 97–99; O2SAT 96–97
[2017-02-26] MEDS: FAMOTIDINE 20 MG/2 ML VIAL IV PUSH SCH ×3 (00:28→23:19)
[2017-02-26] MEDS: hydrALAZINE HCL 25 MG TAB PO SCH ×3 (05:47→21:29)
[2017-02-26] MEDS ORDERED: SODIUM CHLORID 0.9% 500 ML IV PRN (06:30)
[2017-02-26] MEDS ORDERED: CHLORHEXIDINE GLUCONATE 2 % 1 PACK (2 CLOTHS) TOPICAL PRN (06:30)
[2017-02-26] MEDS ORDERED: LACTATED RINGER'S 1000 ML IV PRN (06:30)
[2017-02-26] MEDS ORDERED: POVIDONE IODINE 5% (ANTISEPSIS KIT) 4 APPLICATIONS EACH NARE PRN (06:30)
[2017-02-26] MEDS: SODIUM CHLORIDE 0.9% FLUSH 10 ML FLUSH IV FLUSH SCH ×2 (09:00→21:30)
[2017-02-26] MEDS: LISINOPRIL 20 MG TAB PO SCH (09:00)
--- NOTE | 2017-02-26 09:03 | HHI.NPPN ---
Subjective General Problems: Anemia Renal Failure: Chronic, End Stage Renal Disease Interval History Seen during dialysis. He is to have AVF placed today. (Mikki Arroyo) Review of Systems General Constitutional: Fatigue (Mikki Arroyo) Objective Data Data Vital Signs Date Time Temp Pulse Resp B/P (MAP) Pulse Ox O2 Delivery O2 Flow Rate FiO2 02/26/17 04:09 66 02/26/17 04:00 98.8 70 16 122/66 (84) 97 02/26/17 00:18 69 02/26/17 00:00 98.1 73 16 134/66 (88) 96 02/25/17 20:19 83 02/25/17 20:00 97.7 84 16 135/62 (86) 97 02/25/17 15:47 76 02/25/17 15:30 97.9 73 20 152/76 (101) 98 02/25/17 12:20 67 02/25/17 11:30 99.0 65 20 147/68 (94) 98 (Mikki Arroyo) -: 02/25/17 0709 02/25/17 0709 Tubes & Lines: Perma-Cath (Mikki Arroyo) Physical Exam General Appearance: Well Developed, No Acute Distress, Comfortable (Mikki Arroyo) Eyes Eye Exam: Pupils Equal (Mikki Arroyo) Throat Throat Exam: Oral Mucosa [place] & Moist (Mikki Arroyo) Pulmonary Resp Exam: Breath Sounds Equal, No Distress, Rhonchi, Decreased Bases (Mikki Arroyo) Cardiology CV Exam: Regular, Normal Sinus Rhythm, Good Perfusion (Mikki Arroyo) Gastrointestinal/Abdomen GI Exam: Soft, Non-Tender, Bowel Sounds Present, Distended (Mikki Arroyo) Musculoskeletal MS Exam: Joints Intact, Normal Tone (Mikki Arroyo) Integumentary Skin Exam: Warm, Dry (Mikki Arroyo) Extremeties Extremities Exam: Pedal Pulses Palpable, Trace Edema (Mikki Arroyo) Neurologic Neuro Exam: Alert, Awake, Oriented, Speech Clear, Moving All Extremities (Mikki Arroyo) Psychiatric Psych Exam: Appropriate Responses (Mikki Arroyo) Assessment/Plan Discussed Condition With: Patient Assessment Summary: Anemia of CKD, Hypertension, End Stage Renal Disease Problem List: (1) CKD (chronic kidney disease) stage 5, GFR less than 15 ml/min ICD Codes: N18.5 - Chronic kidney disease, stage 5 Plan: ESRD being transitioned to hemodialysis s/p Permcath placement, HD started 02/22; now on MWF HD seen during dialysis today on a 3K, 350 BFR, goal 3L; however 30 minutes into treatment he is being called to OR can have HD Sunday to make up treatment avoid IVF outpatient HD arrangements in process for Dawn obtain intermittent renal panel (2) Lower extremity edema ICD Codes: R60.0 - Localized edema Status: Acute Plan: improving with dialysis (3) Metabolic acidosis ICD Codes: E87.2 - Metabolic acidosis Status: Acute Plan: should improve with hemodialysis monitor (4) Poorly controlled diabetes mellitus ICD Codes: E11.9 - Poorly controlled diabetes mellitus Status: Resolved Plan: continue insulin therapy follow glucose (5) Anemia ICD Codes: D64.9 - Anemia, unspecified Plan: continue epogen with dialysis give venofer IV (Mikki Arroyo) Problem List: (1) CKD (chronic kidney disease) stage 5, GFR less than 15 ml/min ICD Codes: N18.5 - Chronic kidney disease, stage 5 Plan: ESRD being transitioned to hemodialysis s/p Permcath placement, HD started 02/22; now on MWF HD seen during dialysis today on a 3K, 350 BFR, goal 3L; however 30 minutes into treatment he is being called to OR can have HD Sunday to make up treatment avoid IVF outpatient HD arrangements in process for Dawn obtain intermittent renal panel (2) Lower extremity edema ICD Codes: R60.0 - Localized edema Status: Acute Plan: improving with dialysis (3) Metabolic acidosis ICD Codes: E87.2 - Metabolic acidosis Status: Acute Plan: should improve with hemodialysis monitor (4) Poorly controlled diabetes mellitus ICD Codes: E11.9 - Poorly controlled diabetes mellitus Status: Resolved Plan: continue insulin therapy follow glucose (5) Anemia ICD Codes: D64.9 - Anemia, unspecified Plan: continue epogen with dialysis give venofer IV Plan patient was seen and examined. Agree with above assessment and plan. (Juan Antonio Poon MD) Mikki Arroyo Feb 26, 2017 09:03 Juan Antonio Poon MD Feb 26, 2017 10:44
[2017-02-26] MEDS ORDERED: HEPARIN SODIUM - SQ 10,000 UNITS/ML VIAL ONE (09:28)
[2017-02-26] MEDS ORDERED: FAMOTIDINE 20 MG/2 ML VIAL ONE (09:57)
[2017-02-26] MEDS ORDERED: ceFAZolin INJ 1,000 MG VIAL ONE (09:59)
--- NOTE | 2017-02-26 10:51 | HHI.FF ---
Face to Face Verification Diagnosis: (1) CKD (chronic kidney disease) stage 5, GFR less than 15 ml/min (2) Hypertension (3) Poorly controlled diabetes mellitus (4) Chronic renal insufficiency Physical Therapy Order: Evaluate and Treat Home Health Nursing Order: Medical education Nursing assessment with vital signs I have seen patient Dillon Lala on 02/26/17. My clinical findings support the need for the requested home health care services because: Ltd mobility - disease progression Impaired cognition/judgement I certify that my clinical findings support that this patient is homebound because: Need for psychosocial assistance Martita Malik Feb 26, 2017 10:51
--- NOTE | 2017-02-26 11:03 | HHI.PR ---
Subjective Remarks Patient seen at bedside. Denies and CP or SOB. Pitting edema improving. Patient NPO for AV fistula placement. Objective Vital Signs Date Time Temp Pulse Resp B/P (MAP) Pulse Ox O2 Delivery O2 Flow Rate FiO2 02/26/17 08:00 69 02/26/17 08:00 98.2 65 18 140/65 (90) 96 02/26/17 04:09 66 02/26/17 04:00 98.8 70 16 122/66 (84) 97 02/26/17 00:18 69 02/26/17 00:00 98.1 73 16 134/66 (88) 96 02/25/17 20:19 83 02/25/17 20:00 97.7 84 16 135/62 (86) 97 02/25/17 15:47 76 02/25/17 15:30 97.9 73 20 152/76 (101) 98 02/25/17 12:20 67 02/25/17 11:30 99.0 65 20 147/68 (94) 98 I/O 02/25/17 02/25/17 02/25/17 02/26/17 02/26/17 02/26/17 06:59 14:59 22:59 06:59 14:59 22:59 Intake Total 240 ml 480 ml 0 ml Output Total 25 ml Balance 240 ml 480 ml -25 ml Intake Oral 240 ml 480 ml 0 ml Output Urine Total 25 ml # Voids 2 8 # Bowel Movements 1 0 Result Diagram: 02/25/17 0709 02/25/17 0709 Objective Remarks GENERAL: Alert and oriented. SKIN: Warm and dry. HEAD: Normocephalic. EYES: No scleral icterus. No injection or drainage. NECK: Supple, trachea midline. No JVD or lymphadenopathy. CARDIOVASCULAR: Regular rate and rhythm without murmurs, gallops, or rubs. 3 + edema noted in lower extremity RESPIRATORY: Breath sounds equal bilaterally. No accessory muscle use. GASTROINTESTINAL: Abdomen soft, non-tender, nondistended. MUSCULOSKELETAL: No cyanosis. BACK: Nontender without obvious deformity. No CVA tenderness. Medications and IVs Current Medications Medications (Trade) Dose Ordered Sig/Maxi Route Start Time Stop Time Status Last Admin (NS Flush) 2 ml UNSCH PRN IV FLUSH 02/20/17 20:30 (NS Flush) 2 ml BID IV FLUSH 02/20/17 21:00 02/25/17 20:26 (Tylenol) 650 mg Q4H PRN PO 02/20/17 20:30 (Zofran Inj) 4 mg Q6H PRN IVP 02/20/17 20:30 (Tylenol) 650 mg Q4H PRN PO 02/20/17 20:30 (Bumetanide) 2 mg BID PO 02/20/17 21:00 02/25/17 20:25 (Apresoline) 25 mg Q8HR PO 02/20/17 22:00 02/26/17 05:47 (Prinivil) 20 mg DAILY PO 02/21/17 09:00 02/25/17 10:09 (Ativan) 0.5 mg Q6H PRN PO 02/20/17 20:30 (Vasotec Inj) 1.25 mg Q6H PRN IV PUSH 02/21/17 11:30 Sodium Chloride 1,000 ml @ 0 mls/hr Q0M PRN OTHER 02/21/17 13:21 02/22/17 16:10 (Heparin Inj) 8,000 units UNSCH PRN IVF 02/21/17 13:30 Sodium Chloride 1,000 ml @ 200 mls/hr Q5H PRN IV 02/21/17 13:21 Sodium Chloride 1,000 ml @ 0 mls/hr Q0M PRN OTHER 02/21/17 13:21 (Mannitol Inj) 12.5 gm UNSCH PRN IV 02/21/17 13:30 (Albumin 25% Inj) 25 gm UNSCH PRN IV 02/21/17 13:30 (NS Flush) 5 ml UNSCH PRN IV FLUSH 02/21/17 13:30 (Heparin Inj) UNSCH PRN .XX 02/21/17 13:30 02/23/17 20:57 (Gentamicin (Dialysis) Inj) 20 mg UNSCH PRN IV 02/21/17 13:30 02/23/17 20:56 (Zofran Inj) 4 mg UNSCH PRN IV 02/21/17 13:30 (Tylenol) 650 mg UNSCH PRN PO 02/21/17 13:30 (Benadryl) 25 mg UNSCH PRN PO 02/21/17 13:30 (Nitrostat Sl) 0.4 mg UNSCH PRN SL 02/21/17 13:30 (Catapres) 0.1 mg UNSCH PRN PO 02/21/17 13:30 (Epogen Inj) 10,000 units UNSCH PRN IV 02/21/17 13:30 02/23/17 20:56 (Gelfoam 12 Mm/7 Mm Top) 1 foam UNSCH PRN TOP 02/21/17 13:30 (NS Flush) UNSCH PRN IVF 02/21/17 17:30 (Heparin Inj) UNSCH PRN IV FLUSH 02/21/17 17:30 (Pepcid Inj) 10 mg Q12H IV PUSH 02/23/17 00:00 02/26/17 00:28 Lactated Ringer's 1,000 ml @ 30 mls/hr Q24H PRN IV 02/26/17 06:30 03/01/17 06:29 Sodium Chloride 500 ml @ 30 mls/hr [id number] PRN IV 02/26/17 06:30 03/01/17 06:29 (Betadine 5% Antisepsis Kit) 1 applic PATTERN KEEPER PRN EACH NARE 02/26/17 06:30 03/01/17 06:29 (Chlorhexidine 2% Cloth) 3 pack PATTERN KEEPER PRN TOPICAL 02/26/17 06:30 03/01/17 06:29 Iron Sucrose 100 mg/Sodium Chloride 105 ml @ 105 mls/hr DAILY IV 02/27/17 09:00 03/01/17 09:59 Assessment and Plan Problem List: (1) CKD (chronic kidney disease) stage 5, GFR less than 15 ml/min ICD Codes: N18.5 - Chronic kidney disease, stage 5 (2) Metabolic acidosis ICD Codes: E87.2 - Metabolic acidosis Status: Acute (3) Lower extremity edema ICD Codes: R60.0 - Localized edema Status: Acute (4) Anemia ICD Codes: D64.9 - Anemia, unspecified (5) Poorly controlled diabetes mellitus ICD Codes: E11.9 - Poorly controlled diabetes mellitus Status: Resolved (6) Hypertension ICD Codes: I10 - Hypertension Status: Acute (7) Frequent loose stools ICD Codes: R19.7 - Diarrhea, unspecified (8) Wound of sacral region ICD Codes: S31.000A - Unspecified open wound of lower back and pelvis without penetration into retroperitoneum, initial encounter Assessment and Plan 02/21/17 CKD stage 5- Creat 6.1 and BUN of 89 progressive renal failure. Nephrology consulted. Was sent to the hospital from [facility] for worsening renal indices and increased edema. Per note had AVF planned this month. He is NPO for perma cath today with dialysis planned for tomorrow and then MWF. Dr. Westbrook consulted. for possible surgery for AVF this admission. He will do outpatient HD at [facility], they are aware and arrangements are in process Edema 3 + pitting edema in lower extremity. On Bumex HTN B/P elevated at 175/80. On lisinopril and hydralazine. Will order PRN vasotec and monitor Diabetes BS AC and HS on long acting insulin and SS. Will monitor BS well controlled Anemia HGB 9.8 today. On epogen and iron profile ordered per nephrology. Wound sacral region Wound care ordered. Frequent loose stools C Diff ordered. 02/22/17 CKD- VAS cath placed. Plan for dialysis today and tomorrow. HTN B/P improved. On lisinopril and hydralazine. PRN vasotec and monitor Diabetes BS AC and HS BS 65-106 long acting insulin discontinued Anemia HGB stable at 9.8 today. On epogen Wound sacral region Wound care ordered. 02/23/17 CKD- VAS cath in place dialysis scheduled # 2 for today. HTN B/P improved at 131/70 Continue current regimen. PRN vasotec and monitor Diabetes BS AC and HS BS overnight well controlled at 95-106 Anemia HGB stable at 9.6 today. On epogen Labs in AM Anticipate discharge on Sunday02/24/17 on dialysis cellulitis resolved will discuss placement with case management 02/25/17 on dialysis cellulitis resolved will discuss placement with case management anemmia workup in progress 02/26/17 CKD stage 5- Nephrology consulted and managing. Dialysis today. NPO for AV fistula placement. He will do outpatient HD at [facility], they are aware and arrangements are in process Edema Much improved. On Bumex will decrease to daily HTN B/P well controlled at 140/65 On lisinopril and hydralazine. Will order PRN vasotec and monitor Diabetes BS AC and HS BS overnight at [phone]. Anemia HGB 9.7. On epogen and iron profile ordered per nephrology and IV Iron replacement ordered. Labs in AM. Home health Face to face done and referral to case management to arrange [facility] I and the VENDING ATTENDANT have both examined this patient and reviewed this note and I agree with these findings and plan of care. Martita Gonzalez. VENDING ATTENDANT Feb 26, 2017 11:03
[2017-02-26] MEDS ORDERED: BUPIVACAINE/EPINEPHRINE 0.5% PF 30 ML VIAL INFIL ONE (11:26)
[2017-02-26] MEDS ORDERED: BUPIVACAINE/EPINEPHRINE 0.5% 50 ML VIAL INFIL ONE (11:45)
[2017-02-26] MEDS ORDERED: DO NOT ADM ANY ANTICOAGULANT DRUGS PRN (11:55)
[2017-02-26] MEDS ORDERED: BUPIVACAINE/EPINEPHRINE 0.5% PF 10 ML VIAL INFIL ONE (12:00)
[2017-02-26] MEDS ORDERED: PROPOFOL 200 MG/20 ML AMP IV ONE (12:00)
[2017-02-26] MEDS ORDERED: PHENYLEPH/NS 1000 MCG/10 ML SYR IV ONE (12:00)
[2017-02-27] VITALS: BP 123/59; PULSE 73; PULSE 76; RESP 18; TEMP 97.4; O2SAT 97
[2017-02-27 04:00] VITALS: PULSE 71
[2017-02-27 05:20] VITALS: BP 119/60; PULSE 71; RESP 16; TEMP 97.6; O2SAT 97
[2017-02-27] MEDS: hydrALAZINE HCL 25 MG TAB PO SCH ×3 (05:29→20:18)
[2017-02-27] MEDS: BUMETANIDE 1 MG TAB PO SCH (07:43)
[2017-02-27] MEDS: LISINOPRIL 20 MG TAB PO SCH (07:43)
[2017-02-27] MEDS: SODIUM CHLORIDE 0.9% FLUSH 10 ML FLUSH IV FLUSH SCH ×2 (08:07→20:18)
[2017-02-27] MEDS: IRON SUCROSE INJ 100 MG in SODIUM CHLORIDE 0.9% INJ 100 ML IV SCH (08:07)
[2017-02-27 08:45] LABS: AUTOMATED NEUTROPHIL # 6.5 TH/MM3 (1.8-7.7); BASOPHIL % 0.3 % (0.0-2.0); EOSINOPHIL # 0.5 TH/MM3 (0-0.4); EOSINOPHIL % 5.8 % (0.0-4.0); HEMATOCRIT 29.8 % (39.0-51.0); LYMPH % 14.1 % (9.0-44.0); LYMPHOCYTE # 1.3 TH/MM3 (1.0-4.8); MEAN CELL VOLUME 81.6 FL (80.0-100.0); MEAN CORPUSCULAR HEMOGLOBIN 27.1 PG (27.0-34.0); MEAN CORPUSCULAR HGB CONC 33.2 % (32.0-36.0); MONO % 7.4 % (0.0-8.0); NEUT % 72.4 % (16.0-70.0); PLATELET COUNT 263 TH/MM3 (150-450); RED BLOOD COUNT 3.65 MIL/MM3 (4.50-5.90); RED CELL DISTRIBUTION WIDTH 15.2 % (11.6-17.2)
[2017-02-27 08:50] LABS: HEMO FLAGS AUTO DIFF
--- NOTE | 2017-02-27 08:52 | HHI.NPPN ---
Subjective General Problems: Anemia Renal Failure: Chronic, End Stage Renal Disease Interval History AVF was placed yesterday. No concerns from patient. Seen during dialysis today. (Mikki Arroyo) Review of Systems General Constitutional: Fatigue (Mikki Arroyo) Objective Data Data Vital Signs Date Time Temp Pulse Resp B/P (MAP) Pulse Ox O2 Delivery O2 Flow Rate FiO2 02/27/17 05:20 97.6 71 16 119/60 (79) 97 02/27/17 04:00 71 02/27/17 00:00 97.4 73 18 123/59 (80) 97 02/27/17 00:00 76 02/26/17 20:00 81 02/26/17 20:00 99.0 76 18 118/61 (80) 97 02/26/17 18:00 97.0 77 20 152/66 (94) 96 02/26/17 15:00 97.3 73 16 155/69 (97) 97 02/26/17 12:55 97.8 75 16 110/65 (80) 96 Room Air 02/26/17 12:45 78 16 114/66 (82) 95 Room Air 02/26/17 12:30 75 15 115/69 (84) 94 Room Air 02/26/17 12:15 76 15 121/70 (87) 94 Room Air 02/26/17 12:00 77 15 125/67 (86) 100 Nasal Cannula 2 02/26/17 11:50 98.0 80 20 128/63 (84) 100 Nasal Cannula 2 (Mikki Arroyo) -: 02/25/17 0709 02/25/17 0709 Tubes & Lines: Perma-Cath (Mikki Arroyo) Physical Exam General Appearance: Well Developed, No Acute Distress, Comfortable (Mikki Arroyo) Eyes Eye Exam: Pupils Equal (Mikki Arroyo) Throat Throat Exam: Oral Mucosa [place] & Moist (Mikki Arroyo) Pulmonary Resp Exam: Breath Sounds Equal, No Distress, Rhonchi, Decreased Bases (Mikki Arroyo) Cardiology CV Exam: Regular, Normal Sinus Rhythm, Good Perfusion (Mikki Arroyo) Gastrointestinal/Abdomen GI Exam: Soft, Non-Tender, Bowel Sounds Present, Distended (Mikki Arroyo) Musculoskeletal MS Exam: Joints Intact, Normal Tone (Mikki Arroyo) Integumentary Skin Exam: Warm, Dry Skin Remarks AVF left AC, dressing intact + thrill/bruit (Mikki Arroyo) Extremeties Extremities Exam: Pedal Pulses Palpable, Trace Edema (Mikki Arroyo) Neurologic Neuro Exam: Alert, Awake, Oriented, Speech Clear, Moving All Extremities (Mikki Arroyo) Psychiatric Psych Exam: Appropriate Responses (Mikki Arroyo) Assessment/Plan Discussed Condition With: Patient Assessment Summary: Anemia of CKD, Hypertension, End Stage Renal Disease Problem List: (1) CKD (chronic kidney disease) stage 5, GFR less than 15 ml/min ICD Codes: N18.5 - Chronic kidney disease, stage 5 Plan: ESRD being started on hemodialysis s/p Permcath placement, HD started 02/22; now on MWF HD HD cancelled yesterday for AVF placement repeat HD today on a 2K, 350 BFR, goal 3L avoid IVF outpatient HD arrangements in process for [facility] , has plans for tomorrow chair time at 3:45 (2) Lower extremity edema ICD Codes: R60.0 - Localized edema Status: Acute Plan: improving with dialysis (3) Metabolic acidosis ICD Codes: E87.2 - Metabolic acidosis Status: Acute Plan: corrected with hemodialysis monitor (4) Poorly controlled diabetes mellitus ICD Codes: E11.9 - Poorly controlled diabetes mellitus Status: Resolved Plan: continue insulin therapy follow glucose (5) Anemia ICD Codes: D64.9 - Anemia, unspecified Plan: continue epogen with dialysis ordered venofer IV Plan He is cleared for discharge from renal perspective if cleared by Dr. Westbrook (Mikki Arroyo) Plan patient was seen and examined during dialysis. All the notes were reviewed. Outpatient dialysis at [facility]. Possible discharge. (Juan Antonio Poon MD) Mikki Arroyo Feb 27, 2017 08:52 Juan Antonio Poon MD Feb 27, 2017 10:20
[2017-02-27 09:12] LABS: BICARBONATE 25.5 MEQ/L (21.0-32.0); POTASSIUM 3.9 MEQ/L (3.5-5.1)
[2017-02-27 10:02] LABS: BANDS 13 % (0-6); EOSINOPHILS 6 % (0-4); MYELOCYTES 1 % (0-0); NEUTROPHIL # MANUAL DIFF 6.9 TH/MM3 (1.8-7.7); POLYS (SEG NEUTROPHILS) 63 % (16-70); WBC DIFF SAMPLE 100
[2017-02-27 10:03] LABS: SCAN/DIFF FINAL DIFF MANUAL; TOXIC GRANULATION 2+ (NORMAL)
[2017-02-27] MEDS ORDERED: GENT20P IV (10:27)
[2017-02-27] MEDS ORDERED: HEPAR10KP IVF (10:27)
[2017-02-27] MEDS ORDERED: BUME1TAB PO (10:27)
[2017-02-27] MEDS ORDERED: NOVOLOGP2 SQ (10:27)
[2017-02-27] MEDS ORDERED: ALBU12.5P IV (10:27)
[2017-02-27] MEDS ORDERED: BENA25CA4 PO (10:27)
[2017-02-27] MEDS ORDERED: [UNRECOGNIZED DRUG - CODE] IV (10:27)
[2017-02-27] MEDS ORDERED: EPOG1000 IV (10:27)
[2017-02-27] MEDS ORDERED: CLON.1 PO (10:27)
[2017-02-27] MEDS ORDERED: TYLE325T PO (10:27)
[2017-02-27] MEDS: EPOETIN ALFA 10,000 UNITS/ML VIAL IV PRN (10:29)
[2017-02-27] MEDS: GENTAMICIN SULFATE (DIALYSIS USE ONLY) 20 MG/2 ML VIAL IV PRN (10:30)
--- NOTE | 2017-02-27 10:37 | HHI.DS ---
Discharge Summary Admission Date Feb 20, 2017 at 19:47 Discharge Date: Feb 27, 2017 Admitting Diagnosis Acute Renal Failure; Hyperkalemia (1) CKD (chronic kidney disease) stage 5, GFR less than 15 ml/min ICD Codes: N18.5 - Chronic kidney disease, stage 5 (2) Hyperkalemia ICD Codes: E87.5 - Hyperkalemia; L03.115 - Cellulitis of right lower limb Status: Acute (3) Anemia ICD Codes: D64.9 - Anemia, unspecified (4) Chronic renal insufficiency ICD Codes: N18.9 - Chronic renal insufficiency Status: Acute Brief History 81-year-old male with history of CAD, hypertension, diabetes, presents to the emergency department from [facility] for evaluation of BUN of 88 and creatinine 6.1. Patient was sent to ER for renal failure and further evaluation CBC/BMP: 02/27/17 0810 02/27/17 0810 Significant Findings Laboratory Tests Test 02/25/17 07:09 02/27/17 08:10 Red Blood Count 3.45 MIL/MM3 (4.50-5.90) 3.65 MIL/MM3 (4.50-5.90) Hemoglobin 9.7 GM/DL (13.0-17.0) 9.9 GM/DL (13.0-17.0) Hematocrit 28.6 % (39.0-51.0) 29.8 % (39.0-51.0) Neutrophils (%) (Auto) 70.6 % (16.0-70.0) 72.4 % (16.0-70.0) Monocytes (%) (Auto) 8.7 % (0.0-8.0) Eosinophils (%) (Auto) 6.6 % (0.0-4.0) 5.8 % (0.0-4.0) Eosinophils # (Auto) 0.6 TH/MM3 (0-0.4) 0.5 TH/MM3 (0-0.4) Blood Urea Nitrogen 42 MG/DL (7-18) 48 MG/DL (7-18) Creatinine 4.62 MG/DL (0.60-1.30) 5.53 MG/DL (0.60-1.30) Random Glucose 129 MG/DL (74-106) 118 MG/DL (74-106) Total Protein 5.8 GM/DL (6.4-8.2) Calcium Level 7.2 MG/DL (8.5-10.1) 8.1 MG/DL (8.5-10.1) Estimat Glomerular Filtration Rate 12 ML/MIN (>89) 10 ML/MIN (>89) Protein Corrected Calcium 7.9 MG/DL (8.5-10.1) Band Neutrophils % 13 % (0-6) Lymphocytes % 8 % (9-44) Monocytes % 9 % (0-8) Eosinophils % 6 % (0-4) Myelocytes 1 % (0-0) Toxic Granulation 2+ (NORMAL) Albumin 2.5 GM/DL (3.4-5.0) PE at Discharge GENERAL: Alert and oriented. SKIN: Warm and dry. HEAD: Normocephalic. EYES: No scleral icterus. No injection or drainage. NECK: Supple, trachea midline. No JVD or lymphadenopathy. CARDIOVASCULAR: Regular rate and rhythm without murmurs, gallops, or rubs. 3 + edema noted in lower extremity RESPIRATORY: Breath sounds equal bilaterally. No accessory muscle use. GASTROINTESTINAL: Abdomen soft, non-tender, nondistended. MUSCULOSKELETAL: No cyanosis. BACK: Nontender without obvious deformity. No CVA tenderness. Hospital Course 81-year-old male with history of CAD, hypertension, diabetes, presents to the emergency department from [facility] for evaluation of BUN of 88 and creatinine 6.1. Patient was sent to ER for renal failure and further evaluation. Patient was followed by nephrology and vascular surgery. Vas cath placed and dialysis started. Tolerated well. Patient also had AV fistula placed in left arm. Dressing on. Patient is cleared for discharge from all services. Discharged to [facility] dialysis arranged in [place] Pt Condition on Discharge: Good Discharge Disposition: Discharge to SNF Discharge Instructions DIET: Follow Instructions for: Renal Failure Diet Activities you can perform: Regular-No Restrictions Follow up Referrals: Appointment for Follow Up @ [facility] Appointment for Follow Up @ [facility] PCP Follow-up @ [facility] New Orders: BASIC METABOLIC PROF - 2 Days CBC NO DIFF - 2 Days New Medications: Albumin Human Inj (Flexbumin Inj) 0.25 Gm/Ml Soln 25 GM IV UNSCH PRN for WITH DIALYSIS for 30 Days, #30 INJECTION Bumetanide (Bumetanide) 1 Mg Tab 2 MG PO DAILY for swelling, #30 TAB Clonidine (Catapres) 0.1 Mg Tab 0.1 MG PO UNSCH PRN for for BP > 180/100 X 2 readings for 30 Days, TAB Diphenhydramine HCl (Benadryl Allergy) 25 Mg Cap 25 MG PO UNSCH PRN for for hives/itching/anaphylaxis for 30 Days, #30 CAP Epoetin Inj (Epogen Inj) 10,000 Unit/Ml Inj 89386 UNITS IV UNSCH PRN for WITH DIALYSIS for 30 Days, #10 INJECTION Gentamicin Inj (Gentamicin Inj) 20 Mg/2 Ml Inj 20 MG IV UNSCH PRN for WITH DIALYSIS for 30 Days, #10 INJECTION Heparin Inj (Heparin Inj) 10,000 Units/10 Ml Inj 8000 UNITS IVF UNSCH PRN for WITH DIALYSIS for 30 Days, #10 INJECTION Mannitol (Mannitol) 25 % (250 Mg/Ml) Inj 12.5 GM IV UNSCH PRN for WITH DIALYSIS for 30 Days, INJECTION Continued Medications: Acetaminophen (Tylenol) 325 Mg Tab 650 MG PO Q4H PRN for PAIN 1 TO 10 AND/OR AGITATION for 30 Days, TAB 0 Refills ( This prescription has been renewed) Hydralazine HCl (Hydralazine HCl) 25 Mg Tablet 25 MG PO Q8HR for Blood Pressure Management, #90 BOTTLE Insulin Aspart Inj (Novolog Inj) 1,000 Unit/10 Ml Vial 1-9 UNITS SQ ACHS for Blood Sugar Management for 30 Days, #10 ML 0 Refills ( This prescription has been renewed) Max dose at bedtime:( )units; sugars less than 70,(0)units; sugars 150-199,(1) unit; sugars 200-249,(3) units; sugars 250-299,(5) units; sugars 300-349,(7) units; sugars greater than 349,(9) units Lisinopril (Lisinopril) 20 Mg Tab 20 MG PO DAILY, #30 TAB 0 Refills Discontinued Medications: Bumetanide (Bumetanide) 2 Mg Tab 2 MG PO BID, TAB 0 Refills Insulin Detemir Inj (Levemir Inj) 1,000 unit/ 10 ML Vial 5 UNITS SQ HS for Blood Sugar Management, #30 INJECTION Lorazepam (Lorazepam) 0.5 Mg Tab 0.5 MG PO Q6H PRN for ANXIETY, TAB 0 Refills Magnesium Hydroxide Liq (Milk of Magnesia Liq) 400 Mg/5 Ml Susp 30 ML PO ONCE for Indigestion, #30 ML 0 Refills Martita Malik Feb 27, 2017 10:37
[2017-02-27 12:15] VITALS: BP 112/56; PULSE 80; RESP 16; TEMP 96.6; O2SAT 98
[2017-02-27] MEDS: FAMOTIDINE 20 MG/2 ML VIAL IV PUSH SCH ×2 (12:33→23:39)
[2017-02-27 16:00] VITALS: BP_SYST 100; BP_SYST 88; BP_DIAS 54; BP_DIAS 60; PULSE 64; RESP 16; TEMP 99; O2SAT 99
--- NOTE | 2017-02-27 16:54 | MP ---
cc: [facility] DATE OF SURGERY: 02/26/2017 PREOPERATIVE DIAGNOSIS: Chronic kidney disease, needs permanent hemodialysis access. POSTOPERATIVE DIAGNOSIS: Chronic kidney disease, needs permanent hemodialysis access. OPERATION: Left brachial basilic AV fistula creation. SURGEON Tung Westbrook MD. COMPUTER PROGRAMMING MANAGER David Mendez CSA. ANESTHESIA LMA / local DESCRIPTION OF OPERATIVE PROCEDURE: With the patient in the supine position and under LMA the left arm was prepped with Betadine and draped in a sterile fashion. Appropriate IV antibiotic prophylaxis was administered and following a protocol time-out, the skin and subcutaneous tissue along the proposed incisional area preemptively infiltrated with 0.5% Marcaine with epinephrine. A curvilinear incision was performed along the medial supra-antecubital region through which the brachial artery and basilic vein were circumferentially mobilized. The vein was ligated distally with 4-0 silk, transected proximal to the ligature, spatulated on end, flushed with heparinized saline and occluded with a Yasargil clip. The brachial artery was occluded proximally and distally with Yasargil clips. A vertical approximately 4 mm arteriotomy was performed along the anteromedial surface. The artery was flushed proximally and distally with heparinized saline. An end-to-side anastomosis was accomplished between the vein and arteriotomy with continuous 7-0 Prolene. The occluding Yasargil clips were removed, reestablishing pulsatile flow within the brachial artery as well as into the basilic vein. Left radial pulse remained easily palpable. Perfusion within the left hand appeared grossly normal with biphasic Doppler flow documented within the palmar arch. Strict hemostasis was assured. The incision was closed with interrupted subcutaneous 4-0 Monocryl, continuous subcuticular 5-0 Monocryl, reinforced with Steri-Strips and covered with sterile gauze. Instrument, needle and sponge count were correct x2. There were no operative complications. The patient returned to the recovery room in stable condition having tolerated the procedure well. Tung Westbrook MD JTS/PHILOMENA /4:07 PM /4:39 PM
[2017-02-27 20:00] VITALS: BP 112/61; PULSE 82; PULSE 85; RESP 18; TEMP 97.6; O2SAT 98
[2017-02-28] VITALS: BP 123/60; PULSE 60; PULSE 73; RESP 16; TEMP 97.1; O2SAT 96
[2017-02-28 04:00] VITALS: PULSE 53
[2017-02-28 04:47] VITALS: BP 120/68; PULSE 70; RESP 16; TEMP 96.9; O2SAT 97
[2017-02-28] MEDS: hydrALAZINE HCL 25 MG TAB PO SCH ×2 (05:53→13:44)
[2017-02-28] MEDS: BUMETANIDE 1 MG TAB PO SCH (07:54)
[2017-02-28] MEDS: LISINOPRIL 20 MG TAB PO SCH (07:54)
[2017-02-28] MEDS: IRON SUCROSE INJ 100 MG in SODIUM CHLORIDE 0.9% INJ 100 ML IV SCH (07:54)
[2017-02-28] MEDS: SODIUM CHLORIDE 0.9% FLUSH 10 ML FLUSH IV FLUSH SCH (07:55)
[2017-02-28 08:00] VITALS: BP 146/75; PULSE 77; RESP 16; TEMP 96.5; O2SAT 95
--- NOTE | 2017-02-28 10:41 | HHI.DS ---
Discharge Summary Admission Date Feb 20, 2017 at 19:47 Discharge Date: Feb 28, 2017 Admitting Diagnosis Acute Renal Failure; Hyperkalemia (1) CKD (chronic kidney disease) stage 5, GFR less than 15 ml/min ICD Codes: N18.5 - Chronic kidney disease, stage 5 (2) Hyperkalemia ICD Codes: E87.5 - Hyperkalemia; L03.115 - Cellulitis of right lower limb Status: Acute (3) Anemia ICD Codes: D64.9 - Anemia, unspecified (4) Chronic renal insufficiency ICD Codes: N18.9 - Chronic renal insufficiency Status: Acute Brief History 81-year-old male with history of CAD, hypertension, diabetes, presents to the emergency department from [facility] for evaluation of BUN of 88 and creatinine 6.1. Patient was sent to ER for renal failure and further evaluation CBC/BMP: 02/27/17 0810 02/27/17 0810 Significant Findings Laboratory Tests Test 02/27/17 08:10 02/28/17 10:10 Red Blood Count 3.65 MIL/MM3 (4.50-5.90) Hemoglobin 9.9 GM/DL (13.0-17.0) Hematocrit 29.8 % (39.0-51.0) Neutrophils (%) (Auto) 72.4 % (16.0-70.0) Eosinophils (%) (Auto) 5.8 % (0.0-4.0) Eosinophils # (Auto) 0.5 TH/MM3 (0-0.4) Band Neutrophils % 13 % (0-6) Lymphocytes % 8 % (9-44) Monocytes % 9 % (0-8) Eosinophils % 6 % (0-4) Myelocytes 1 % (0-0) Toxic Granulation 2+ (NORMAL) Blood Urea Nitrogen 48 MG/DL (7-18) Creatinine 5.53 MG/DL (0.60-1.30) Random Glucose 118 MG/DL (74-106) Albumin 2.5 GM/DL (3.4-5.0) Calcium Level 8.1 MG/DL (8.5-10.1) Estimat Glomerular Filtration Rate 10 ML/MIN (>89) PE at Discharge GENERAL: Alert and oriented. SKIN: Warm and dry. HEAD: Normocephalic. EYES: No scleral icterus. No injection or drainage. NECK: Supple, trachea midline. No JVD or lymphadenopathy. CARDIOVASCULAR: Regular rate and rhythm without murmurs, gallops, or rubs. 3 + edema noted in lower extremity RESPIRATORY: Breath sounds equal bilaterally. No accessory muscle use. GASTROINTESTINAL: Abdomen soft, non-tender, nondistended. MUSCULOSKELETAL: No cyanosis. BACK: Nontender without obvious deformity. No CVA tenderness. Hospital Course 81-year-old male with history of CAD, hypertension, diabetes, presents to the emergency department from [facility] for evaluation of BUN of 88 and creatinine 6.1. Patient was sent to ER for renal failure and further evaluation. Patient was followed by nephrology and vascular surgery. Vas cath placed and dialysis started. Tolerated well. Patient also had AV fistula placed in left arm. Dressing on. Patient is cleared for discharge from all services. Discharged to SNF dialysis arranged in [place]. Discharge delayed yesterday secondary to placement will continue to proceed with discharge. Pt Condition on Discharge: Good Discharge Disposition: Discharge to SNF Discharge Instructions DIET: Follow Instructions for: Renal Failure Diet Activities you can perform: Regular-No Restrictions Follow up [facility]: [facility] Appointment for Follow Up @ [facility] PCP Follow-up @ [facility] New Orders: BASIC METABOLIC PROF - 2 Days CBC NO DIFF - 2 Days New Medications: Albumin Human Inj (Flexbumin Inj) 0.25 Gm/Ml Soln 25 GM IV UNSCH PRN for WITH DIALYSIS for 30 Days, #30 INJECTION Bumetanide (Bumetanide) 1 Mg Tab 2 MG PO DAILY for swelling, #30 TAB Clonidine (Catapres) 0.1 Mg Tab 0.1 MG PO UNSCH PRN for for BP > 180/100 X 2 readings for 30 Days, TAB Diphenhydramine HCl (Benadryl Allergy) 25 Mg Cap 25 MG PO UNSCH PRN for for hives/itching/anaphylaxis for 30 Days, #30 CAP Epoetin Inj (Epogen Inj) 10,000 Unit/[place] 76656 UNITS IV UNSCH PRN for WITH DIALYSIS for 30 Days, #10 INJECTION Gentamicin Inj (Gentamicin Inj) 20 Mg/2 Ml Inj 20 MG IV UNSCH PRN for WITH DIALYSIS for 30 Days, #10 INJECTION Heparin Inj (Heparin Inj) 10,000 Units/10 Ml Inj 8000 UNITS IVF UNSCH PRN for WITH DIALYSIS for 30 Days, #10 INJECTION Mannitol (Mannitol) 25 % (250 Mg/Ml) Inj 12.5 GM IV UNSCH PRN for WITH DIALYSIS for 30 Days, INJECTION Continued Medications: Acetaminophen (Tylenol) 325 Mg Tab 650 MG PO Q4H PRN for PAIN 1 TO 10 AND/OR AGITATION for 30 Days, TAB 0 Refills ( This prescription has been renewed) Hydralazine HCl (Hydralazine HCl) 25 Mg Tablet 25 MG PO Q8HR for Blood Pressure Management, #90 BOTTLE Insulin Aspart Inj (Novolog Inj) 1,000 Unit/10 Ml Vial 1-9 UNITS SQ ACHS for Blood Sugar Management for 30 Days, #10 ML 0 Refills ( This prescription has been renewed) Max dose at bedtime:( )units; sugars less than 70,(0)units; sugars 150-199,(1) unit; sugars 200-249,(3) units; sugars 250-299,(5) units; sugars 300-349,(7) units; sugars greater than 349,(9) units Lisinopril (Lisinopril) 20 Mg Tab 20 MG PO DAILY, #30 TAB 0 Refills Discontinued Medications: Bumetanide (Bumetanide) 2 Mg Tab 2 MG PO BID, TAB 0 Refills Insulin Detemir Inj (Levemir Inj) 1,000 unit/ 10 ML Vial 5 UNITS SQ HS for Blood Sugar Management, #30 INJECTION Lorazepam (Lorazepam) 0.5 Mg Tab 0.5 MG PO Q6H PRN for ANXIETY, TAB 0 Refills Magnesium Hydroxide Liq (Milk of Magnesia Liq) 400 Mg/5 Ml Susp 30 ML PO ONCE for Indigestion, #30 ML 0 Refills Martita Malik Feb 28, 2017 10:41
[2017-02-28 10:45] LABS: AUTOMATED NEUTROPHIL # 8.2 TH/MM3 (1.8-7.7); BASOPHIL % 0.3 % (0.0-2.0); EOSINOPHIL # 0.7 TH/MM3 (0-0.4); EOSINOPHIL % 6.4 % (0.0-4.0); HEMATOCRIT 34.4 % (39.0-51.0); LYMPH % 12.8 % (9.0-44.0); LYMPHOCYTE # 1.4 TH/MM3 (1.0-4.8); MEAN CELL VOLUME 84.2 FL (80.0-100.0); MEAN CORPUSCULAR HEMOGLOBIN 26.8 PG (27.0-34.0); MEAN CORPUSCULAR HGB CONC 31.8 % (32.0-36.0); MONO % 7.6 % (0.0-8.0); NEUT % 72.9 % (16.0-70.0); PLATELET COUNT 257 TH/MM3 (150-450); RED BLOOD COUNT 4.09 MIL/MM3 (4.50-5.90); RED CELL DISTRIBUTION WIDTH 15.7 % (11.6-17.2); WHITE BLOOD COUNT 11.2 TH/MM3 (4.0-11.0)
[2017-02-28 10:56] LABS: BICARBONATE 27.5 MEQ/L (21.0-32.0); POTASSIUM 3.6 MEQ/L (3.5-5.1)
[2017-02-28 11:00] LABS: HEMO FLAGS AUTO DIFF
--- NOTE | 2017-02-28 11:45 | HHI.NPPN ---
Subjective General Problems: Anemia Renal Failure: Chronic, End Stage Renal Disease Interval History No concerns from patient. To be discharged today after dialysis. (Mikki Arroyo) Review of Systems General Constitutional: Fatigue (Mikki Arroyo) Objective Data Data Vital Signs Date Time Temp Pulse Resp B/P (MAP) Pulse Ox O2 Delivery O2 Flow Rate FiO2 02/28/17 08:00 96.5 77 16 146/75 (98) 95 02/28/17 04:47 96.9 70 16 120/68 (85) 97 02/28/17 04:00 53 02/28/17 00:00 60 02/28/17 00:00 97.1 73 16 123/60 (81) 96 02/27/17 20:00 85 02/27/17 20:00 97.6 82 18 112/61 (78) 98 02/27/17 16:00 99.0 64 16 88/54 (65) 99 100/60 (73) 02/27/17 12:15 96.6 80 16 112/56 (74) 98 (Mikki Arroyo) -: 02/28/17 1010 02/28/17 1010 Tubes & Lines: Perma-Cath (Mikki Arroyo) Physical Exam General Appearance: Well Developed, No Acute Distress, Comfortable (Mikki Arroyo) Eyes Eye Exam: Pupils Equal (Mikki Arroyo) Throat Throat Exam: Oral Mucosa [place] & Moist (Mikki Arroyo) Pulmonary Resp Exam: Breath Sounds Equal, No Distress, Rhonchi, Decreased Bases (Mikki Arroyo) Cardiology CV Exam: Regular, Normal Sinus Rhythm, Good Perfusion (Mikki Arroyo) Gastrointestinal/Abdomen GI Exam: Soft, Non-Tender, Bowel Sounds Present, Distended (Mikki Arroyo) Musculoskeletal MS Exam: Joints Intact, Normal Tone (Mikki Arroyo) Integumentary Skin Exam: Warm, Dry Skin Remarks AVF left AC, dressing intact + thrill/bruit (Mikki Arroyo) Extremeties Extremities Exam: Pedal Pulses Palpable, Trace Edema (Mikki Arroyo) Neurologic Neuro Exam: Alert, Awake, Oriented, Speech Clear, Moving All Extremities (Mikki Arroyo) Psychiatric Psych Exam: Appropriate Responses (Mikki Arroyo) Assessment/Plan Discussed Condition With: Patient Assessment Summary: Anemia of CKD, Hypertension, End Stage Renal Disease Problem List: (1) CKD (chronic kidney disease) stage 5, GFR less than 15 ml/min ICD Codes: N18.5 - Chronic kidney disease, stage 5 Plan: ESRD being started on hemodialysis s/p Permcath placement, HD started 02/22; now on MWF HD 1500 ml UF yesterday (treatment made up Sunday for aborted Sunday treatment) s/p AVF placement with Dr. Westbrook ; can follow up as ordered to have HD today then okay for discharge; will go to [place] Sunday at 3: 45pm avoid IVF (2) Lower extremity edema ICD Codes: R60.0 - Localized edema Status: Acute Plan: improving with dialysis (3) Metabolic acidosis ICD Codes: E87.2 - Metabolic acidosis Status: Acute Plan: corrected with hemodialysis monitor (4) Poorly controlled diabetes mellitus ICD Codes: E11.9 - Poorly controlled diabetes mellitus Status: Resolved Plan: continue insulin therapy follow glucose (5) Anemia ICD Codes: D64.9 - Anemia, unspecified Plan: continue epogen with dialysis ordered venofer IV (Mikki Arroyo) Plan patient was seen and examined. I agree with above assessment and plan. 2 hours of dialysis today. To be discharged later today. Outpatient dialysis at [facility]. (Juan Antonio Poon MD) Problem Qualifiers (1) Anemia: Qualified Codes: D50.9 - Iron deficiency anemia, unspecified Mikki Arroyo Feb 28, 2017 11:45 Juan Antonio Poon MD Feb 28, 2017 21:54
[2017-02-28] MEDS: FAMOTIDINE 20 MG/2 ML VIAL IV PUSH SCH (12:00)
[2017-02-28 12:31] LABS: BANDS 12 % (0-6); EOSINOPHILS 5 % (0-4); METAMYELOCYTES 1 % (0-1); MYELOCYTES 4 % (0-0); PLATELET ESTIMATE SMEAR NORMAL (NORMAL); PLATELET MORPHOLOGY ENLARGED (NORMAL); POLYS (SEG NEUTROPHILS) 54 % (16-70); TOXIC GRANULATION 1+ (NORMAL); WBC DIFF SAMPLE 100
[2017-02-28 12:32] LABS: SCAN/DIFF FINAL DIFF MANUAL
[2017-02-28] MEDS: GENTAMICIN SULFATE (DIALYSIS USE ONLY) 20 MG/2 ML VIAL IV PRN (13:58)
[2017-02-28] MEDS: HEPARIN SODIUM - IV 10,000 UNITS/10 ML VIAL PRN (13:58)
[2017-02-28] MEDS: EPOETIN ALFA 10,000 UNITS/ML VIAL IV PRN (13:58)
[2017-02-28 16:00] VITALS: BP 127/65; PULSE 77; RESP 18; TEMP 97.2; O2SAT 100
== END 2017-02-28 17:15 | DRG 673 ==
LOC: NEPC 16:53 → NEDA 19:47 → HOCB 23:42
PROVIDERS: ADMIT Family Medicine; ATTEND Family Medicine
PROC: 05HM33Z Insertion of Infusion Device into Right Internal Jugular Vein, Percutaneous Approach (ICD-10-PCS; principal; 2017-02-21)
PROC: 5A1D60Z (ICD-10-PCS; 2017-02-22)
PROC: 03180ZD Bypass Left Brachial Artery to Upper Arm Vein, Open Approach (ICD-10-PCS; 2017-02-26)
DX: I12.0 Hypertensive chronic kidney disease with stage 5 chronic kidney disease or end stage renal disease (principal); N18.6 End stage renal disease; E87.2 Acidosis; L03.115 Cellulitis of right lower limb; L03.116 Cellulitis of left lower limb; E11.65 Type 2 diabetes mellitus with hyperglycemia; E11.22 Type 2 diabetes mellitus with diabetic chronic kidney disease; E87.5 Hyperkalemia; F41.9 Anxiety disorder, unspecified; E78.5 Hyperlipidemia, unspecified; D63.1 Anemia in chronic kidney disease; K21.9 Gastro-esophageal reflux disease without esophagitis; Z87.891 Personal history of nicotine dependence; Z91.14 Patient's other noncompliance with medication regimen; Z79.4 Long term (current) use of insulin
CPT/HCPCS: 36558; 71010; 76937; 77001; 80048; 80053; 80069; 80074; 81001; 82728; 82948; 83540; 83550; 84100; 84155; 85007; 85025; 85027; 85610; 85730; 87086; 87641; 90935; 93005; 96374; 96375; 99152; 99153; C1750; C1769; J0690; J1580; J1644; J1756; J2250; J2370; J3010; J7030; Q4081